=== PATIENT | female | born 1985 | race Caucasian/White ===

== ENCOUNTER 2021-10-17 12:16 | Outpatient (REF) | payer MEDICAID, SELFPAY ==
[2021-10-18 17:02] LABS: COVID-19 RT-PCR UVMMC Result Negative (Negative)
== END 2021-10-17 12:17 | disposition home or self-care (01) ==
LOC: LBO 12:16
PROVIDERS: Nurse Practitioner Family; Visit Provider Nurse Practitioner Family
DX: Z20.822 Contact with and (suspected) exposure to COVID-19 (principal)
CPT/HCPCS: U0003

== ENCOUNTER 2021-11-14 01:52 | Outpatient (CLI) | payer MEDICAID, SELFPAY ==
[2021-11-14 10:20] VITALS: BP 126/88; PULSE 72; RESP 20; TEMP 36.2; O2SAT 98
[2021-11-14] MEDS: Normal Saline 250 ML 30 ML IV (11:00)
[2021-11-14 12:15] VITALS: BP 117/81; PULSE 74; RESP 16; TEMP 36.4; O2SAT 96
--- NOTE | 2021-11-14 16:08 | NUR.NOTE ---
Pt presented for IV treatment of Sotrovimab following COVID+ test. Care provided by State directed resident assistant team during infusions. Nursing Note:
== END 2021-11-14 01:53 | disposition home or self-care (01) ==
PROVIDERS: Visit Provider Family Medicine
DX: U07.1 COVID-19 (principal)
CPT/HCPCS: 96365; Q0047

== ENCOUNTER 2021-12-25 21:03 | Outpatient (CLI) | payer MEDICAID, SELFPAY ==
[2021-12-25 15:25] LABS: ALT 31 U/L (14-59); AST 17 U/L (15-37); Triglyceride 208 mg/dL (<150)
== END 2021-12-25 21:04 | disposition home or self-care (01) ==
LOC: LBO 21:08
PROVIDERS: Visit Provider Dermatology
DX: Z79.899 Other long term (current) drug therapy (principal)
CPT/HCPCS: 36415; 84450; 84460; 84478

== ENCOUNTER 2022-02-12 13:40 | Outpatient (REF) | payer MEDICAID, SELFPAY ==
[2022-02-13 00:38] LABS: COVID-19 RT-PCR UVMMC Result Negative (Negative)
== END 2022-02-12 13:41 | disposition home or self-care (01) ==
LOC: LBN 13:40
PROVIDERS: Visit Provider Family Medicine
DX: Z20.822 Contact with and (suspected) exposure to COVID-19 (principal)
CPT/HCPCS: U0003

== ENCOUNTER 2022-03-01 03:09 | Outpatient (CLI) | payer MEDICAID, SELFPAY ==
[2022-03-01 10:26] LABS: HCT 37.8 % (36.0-46.0); HGB 12.4 g/dL (11.2-15.7); MCH 28.7 pg (27.0-33.0); MCHC 32.8 % (32.0-36.0); MCV 88 fL (80-95); MPV 9.5 fL (8.0-11.0); Platelet Count 254 10^3/uL (130-400); RBC 4.32 10^6/uL (3.93-5.22); RDW 12.6 % (11.7-14.6); RDW-SD 40.1 fL; WBC 8.23 10^3/uL (4.4-10.8)
[2022-03-01 11:29] LABS: ALT 25 U/L (14-59); AST 16 U/L (15-37); Albumin 4.1 g/dL (3.4-5.0); Alkaline Phosphatase 79 U/L (46-116); Anion Gap 9.4 mmol/L (3-11); BUN 20 mg/dL (7-18); Bilirubin, Total 0.4 mg/dL (0.2-1.0); CO2 28.6 mmol/L (21.0-32.0); Calcium 8.7 mg/dL (8.5-10.1); Calculated LDL 146 mg/dL (<100); Chloride 105 mmol/L (98-107); Cholesterol 210 mg/dL (<200); Glucose 87 mg/dL (74-106); HDL Cholesterol 39 mg/dL (40-60); Potassium 3.9 mmol/L (3.5-5.1); Sodium 143 mmol/L (136-145); TSH (W/Ref FT4) 2.21 uIU/mL (0.36-3.74); Total Protein 7.4 g/dL (6.4-8.2); Triglyceride 128 mg/dL (<150)
== END 2022-03-01 03:10 | disposition home or self-care (01) ==
LOC: LBO 03:09
PROVIDERS: Family Medicine
DX: R00.2 Palpitations (principal); R42 Dizziness and giddiness; E78.79 Other disorders of bile acid and cholesterol metabolism
CPT/HCPCS: 36415; 80053; 80061; 85027; 84443

== ENCOUNTER 2022-07-16 20:25 | Emergency (ER) | payer MEDICAID, SELFPAY ==
--- NOTE | 2022-07-16 20:30 | DI.RAD_ITS ---
Exam(s) XR KNEE LT 3V AP,LAT,AURORA EXAM: XR KNEE LT 3V AP,LAT,A[place]A CLINICAL HISTORY: fall with twisting on knee. TECHNIQUE: 2D digital imaging was performed. COMPARISON: CR RIGHT KNEE 3 VIEWS from 08/24/2013 FINDINGS: 3 views h no evidence of fracture. Small amount of increased joint fluid bone density normal. No osseous le sions. No degenerative changes. IMPRESSION: No significant osseous findings. Small amount of increased joint fluid noted. Appropriate follow-up recommended. DATA REPOSITORY: RADIATION DOSE DELIVERED:
--- NOTE | 2022-07-16 21:35 | DI.VRAD_ITS ---
PROCEDURE INFORMATION: Exam: XR Left Knee Exam date and time: 07/16/2022 9:00 PM Age: 37 years old Clinical indication: Injury or trauma; Sprain or strain; Patella or knee; Injury date: 07/16/22; Injury details: Fall with twisting of left knee TECHNIQUE: Imaging protocol: Radiologic exam of the Left knee. Views: 3 views. COMPARISON: None. FINDINGS: Bones/joints: There are no acute displaced fractures or subluxations. The joint spaces are maintained without degenerative changes. Osseous mineralization is normal. There are no inflammatory osseous erosive changes. Cannot exclude tiny suprapatellar effusion. Soft tissues: Normal. IMPRESSION: No acute displaced fractures or subluxations identified. Dictated and Authenticated by: Francesco Tena MD. Ordering:MICHEL Provider Temporary
[2022-07-16 21:52] VITALS: BP 138/101; PULSE 114; RESP 17; TEMP 36.7; O2SAT 98
[2022-07-16 22:37] VITALS: BP 133/97; PULSE 83; RESP 16; O2SAT 97
--- NOTE | 2022-07-16 22:45 | RT.EKG_ITS ---
APPROVED REPORT Exam: Resting ECG Reason for Exam: fatigue feeling unwell Patient Location: E HR:81 bpm ECG Measurements Heart Rate 81 AXIS MS 128 P 34 QRSd 84 QRS 48 QT 370 T 29 QTc 429 Conclusion Sinus rhythm...normal P axis, V-rate 60- 99 sinus rhythm, normal axis, normal intervals, non ischemic
--- NOTE | 2022-07-16 22:57 | ED.GENADUL_ITS ---
Discharge Plan Disposition Patient Disposition: HOME Condition: Stable Discharge Details Clinical Impression: Injury of knee, Foot laceration Primary Care Provider: Hayley Mckee ED Provider: Kieran Washington Home Meds and New Rx's Prescriptions: New cephalexin 500 mg capsule 500 mg PO QID 5 Days Qty: 20 0RF Discharge Instructions Instructions: Knee Pain (ED) Stand Alone Forms: Work Release Medical Decision Making 37-year-old female presents for mechanical fall on a wet baseball mayda, slipped and twisted left knee, ambulatory at scene, pain worsened when she got home, still ambulatory however hurts to bend knee completely, partial flexion intact full extension intact, soft compartments no effusion no laxity, warm well perfused sensate extremity, while waiting for evaluation patient became lightheaded, she was moved to room 10 and placed in supine position feeling better, no chest pain or shortness of breath. Had a similar episode of lightheadedness while driving a couple months ago. Had to go to the emergency department for evaluation. Negative work-up at that time. Also patient endorses laceration to the dorsum of her left foot that has been present for the last week, feels this is becoming more painful and red, does have some slight induration and erythema surrounding healing superficial laceration, no fluctua nce or purulence. Consider early cellulitis versus healing wound. Knee injury likely contusion versus sprain versus strain muscles consider partial ligamentous tear versus meniscal injury. No evidence of dislocation or fracture. Will treat with Toradol, will start on Keflex, will immobilize in knee immobilizer and provide crutches. Will perform EKG. Likely home with close follow-up 23: 19 patient resting comfortably hemodynamically stable. EKG nonischemic. No evidence of arrhythmia. HPI General Date/Time Provider Initiated Documentation: 07/16/22 20:30 . HPI Narrative: 37-year-old female presents after mechanical slip and fall on a wet baseball mayda, twisted her left knee, was ambulatory at the scene however when she got home the knee became more painful she is still ambulatory however it hurts to walk and bend the knee, also this week sustained a superficial laceration to her left foot that has become more warm and tender to the touch, while in the lobby waiting for treatment patient also became lightheaded felt unwell. Denies chest pain or shortness of breath Related Data Home Medications Medication Instructions Recorded Confirmed cephalexin 500 mg capsule 500 mg PO QID 5 days #20 caps 07/16/22 Previous Rx's Medication Instructions Recorded cephalexin 500 mg capsule 500 mg PO QID 5 days #20 caps 07/16/22 Allergies Allergy/AdvReac Type Severity Reaction Status Date / Time nitrofurantoin Allergy Unverified 12/05/20 08:54 [From Macrobid] General Stated Complaint: Orthopedic LAMAR: 4 Review of Systems Narrative: Review of Systems Constitutional: Lightheaded Eyes: negative ENT: negative Cardiovascular: negative Respiratory: negative Gastrointestinal: negative : negative Musculoskeletal: Knee pain Skin: Foot laceration Neurologic: negative Psych: negative PFSH All Active Problems (Updated 07/16/22 @ 23:21 by Kieran Washington MD) Injury of knee (Acute) Foot laceration (Acute) Social History Smoking/Tobacco Use Status: Never Smoking risk assessment performed?: Yes Alcohol Intake: current Alcohol Intake frequency: a few times a week Drug use: Never Substance use type: does not use Do you feel safe at home: Yes Do you feel safe in your relationship?: Yes Exam Narrative Exam Narrative: Physical Examination General: alert, awake, cooperative, resting comfortably, no acute distress HEENT: normocephalic, atraumatic; PERRL, EOM intact, conjunctiva normal; no nasal discharge; moist mucous membranes, oral and pharyngeal mucosa normal, tolerating secretions Neck: supple, trachea midline; full ROM Chest: normal to inspection Respiratory: normal respiratory effort, speaking in full sentences, clear to auscultation, no wheezing, rales or rhonchi Cardiac: regular rate, regular rhythm, S1S2 intact, no murmurs rubs or gallops GI: abdomen soft, non-tender, non-distended; no palpable mass or hepatosplenomegaly Skin: Superficial healing subacute laceration to dorsum of left foot, scab in place, some surrounding induration and warmth no lymphangitic streaking no fluctuance appreciated no purulence appreciated Neuro: AAOx3, normal speech, moving all extremities Extremities: Patient able to partially flex knee and is able to fully extend left knee, no effusion, no laxity, warm well perfused, soft compartments ambulatory Psych: Appropriate mood and affect Course Vital Signs Vital signs: Vital Signs Temperature 36.7 C 07/16/22 21:52 Pulse 114 H 07/16/22 21:52 Respiratory Rate 17 09/20/22 21:52 Blood Pressure 138/101 H 07/16/22 21:52 Pulse Oximetry 98 07/16/22 21:52 Temperature 36.7 C 07/16/22 21:52 Temperature Source Temporal Artery Scan 07/16/22 21:52 Pulse 83 07/16/22 22:37 Respiratory Rate 16 07/16/22 22:37 Respiratory Effort 07/16/22 21:59 Blood Pressure 133/97 H 07/16/22 22:37 Pulse Oximetry 97 07/16/22 22:37 Oxygen Delivery Method Room Air 07/16/22 21:52 Oxygen Flow Rate 0 07/16/22 21:52 Comment 07/16/22 22:37
[2022-07-16 23:31] VITALS: BP 120/77; PULSE 94; RESP 16; O2SAT 99
[2022-07-16] MEDS: Cephalexin 500 MG CAP PO (23:31)
[2022-07-16] MEDS: Ketorolac 15 MG/ML VIAL IM (23:31)
== END 2022-07-16 23:47 | disposition home or self-care (01) ==
PROVIDERS: Emergency Provider Emergency Medicine; PCP Family Medicine
DX: S91.312A Laceration without foreign body, left foot, initial encounter (principal); S89.92XA Unspecified injury of left lower leg, initial encounter; W01.0XXA Fall on same level from slipping, tripping and stumbling without subsequent striking against object, initial encounter; X50.1XXA Overexertion from prolonged static or awkward postures, initial encounter; Y92.320 Baseball field as the place of occurrence of the external cause
CPT/HCPCS: 73562; 93005; 96372; 99284; 93010; J1885

== ENCOUNTER 2022-08-16 12:52 | Outpatient (REF) | payer MEDICAID, SELFPAY | END 2022-08-16 12:53 | disposition home or self-care (01) | LOC: LBN 12:52 | PROVIDERS: PCP Family Medicine; Visit Provider Obstetrics & Gynecology | DX: R30.0 Dysuria (principal) | CPT/HCPCS: 87077; 87086; 87186 ==

== ENCOUNTER 2022-09-27 22:33 | Outpatient (REF) | payer MEDICAID, SELFPAY ==
[2022-09-30 12:27] LABS: Chlamydia Result Negative (Negative); GC Result Negative (Negative)
== END 2022-09-27 22:34 | disposition home or self-care (01) ==
LOC: LBN 22:33
PROVIDERS: PCP Family Medicine; Visit Provider Physician Assistant
DX: J02.9 Acute pharyngitis, unspecified (principal); Z11.3 Encounter for screening for infections with a predominantly sexual mode of transmission
CPT/HCPCS: 87491; 87591; 87070

== ENCOUNTER 2022-10-07 03:11 | Outpatient (CLI) | payer MEDICAID, SELFPAY ==
[2022-10-07 08:50] LABS: ALT 24 U/L (14-59); AST 18 U/L (15-37); Albumin 4.1 g/dL (3.4-5.0); Alkaline Phosphatase 68 U/L (46-116); Anion Gap 8.3 mmol/L (3-11); BUN 15 mg/dL (7-18); Bilirubin, Total 0.5 mg/dL (0.2-1.0); CO2 27.7 mmol/L (21.0-32.0); CREATININE 1.1 mg/dL (0.55-1.02); Chloride 103 mmol/L (98-107); Estimated GFR 66.78 (mL/min/1.73m2); Glucose 100 mg/dL (74-106); Potassium 3.7 mmol/L (3.5-5.1); Sodium 139 mmol/L (136-145); TSH (W/Ref FT4) 3.46 uIU/mL (0.36-3.74); Total Protein 7.9 g/dL (6.4-8.2)
== END 2022-10-07 03:12 | disposition home or self-care (01) ==
PROVIDERS: PCP Family Medicine; Visit Provider Registered Nurse Infection Control
DX: R63.5 Abnormal weight gain (principal); Z13.6 Encounter for screening for cardiovascular disorders
CPT/HCPCS: 36415; 80053; 84443

== ENCOUNTER 2022-12-02 08:22 | Outpatient (CLI) | payer MEDICAID, SELFPAY ==
[2022-12-02 08:35] LABS: Source Nasal/Nares
[2022-12-02 09:20] LABS: COVID-19 PCR Negative (Negative)
== END 2022-12-02 08:23 | disposition home or self-care (01) ==
LOC: LBO 08:22
PROVIDERS: PCP Family Medicine; Visit Provider Obstetrics & Gynecology
DX: Z20.822 Contact with and (suspected) exposure to COVID-19 (principal)
CPT/HCPCS: 87635

== ENCOUNTER 2022-12-16 19:42 | Emergency (ER) | payer MEDICAID, SELFPAY ==
[2022-12-16 19:47] VITALS: BP 129/85; PULSE 89; RESP 22; TEMP 36.4; O2SAT 96
--- NOTE | 2022-12-16 19:59 | ED.GENADUL_ITS ---
Discharge Plan Disposition Patient Disposition: Home Discharge Details Chief Complaint: Laceration Clinical Impression: Abrasion of finger of left hand Primary Care Provider: Hayley Mckee ED Provider: John Young Home Meds and New Rx's Prescriptions: No Action fluoxetine 40 mg capsule 40 mg PO DAILY Trulicity 1.5 mg/0.5 mL pen injector SUBCUT Discharge Instructions Instructions: Abrasion (ED) Additional Instructions: Tissue adhesive will slowly wear off over approximately 5 days time. May gently wash with soap and water and pat dry. Your tetanus was boosted today. Return for any acute concern. Medical Decision Making 37-year-old female suffered abrasions to her left ring finger while using a mop that broke at home and the sharp edges abraded her. Her tetanus is out of date. The wound was cleansed and tissue adhesive placed. She is stable and approp riate for discharge after updated tetanus booster given. HPI General Mode of arrival: ambulatory . Date/Time Provider Initiated Documentation: 12/16/22 19:44 . Limitations to Documentation: no limitations . Information obtained by: patient . History of Present Illness 37 year old F presents to the emergency department with the chief complaint of Left ring finger abrasion, described as mild, and is localized to the left and upper extremity. Patient reports no radiation. Patient started experiencing this minute(s) and it has been constant. No relieving factors improve symptom(s), No exacerbating factors reported . Patient notes no other symptoms.. Related Data Home Medications Medication Instructions Recorded Confirmed fluoxetine 40 mg capsule 40 mg PO DAILY 12/06/22 12/16/22 dulaglutide 1.5 mg/0.5 mL mg subcut 12/16/22 12/16/22 subcutaneous pen injector (Trulicity) Allergies Allergy/AdvReac Type Severity Reaction Status Date / Time nitrofurantoin Allergy Unverified 12/16/22 19:51 [From Macrobid] General Stated Complaint: Laceration LAMAR: 4 Review of Systems Narrative: Tetanus out of date. No other injury. PFSH All Active Problems (Updated 12/16/22 @ 20:01 by John Young MD) Abrasion of finger of left hand (Acute) Social History Smoking/Tobacco Use Status: Never Smoking risk assessment performed?: Yes Alcohol Intake: current Alcohol Intake frequency: a few times a week Drug use: Never Substance use type: does not use Do you feel safe at home: Yes Do you feel safe in your relationship?: Yes Exam Narrative Exam Narrative: GEN: awake, alert, oriented 3. Pleasant, well groomed, interactive. HEAD: Normocephalic, atraumatic EXT: Full ROM, no edema, the left ring finger has 3 superficial abrasions. Normal capillary refill, normal motor function. Neuro: Grossly normal neurologic exam, conversant, interactive. Psych: Speech fluent, thoughts congruent, affect normal Course Vital Signs Vital signs: Vital Signs Temperature 36.4 C L 12/16/22 19:47 Pulse 89 12/16/22 19:47 Respiratory Rate 22 12/16/22 19:47 Blood Pressure 129/85 12/16/22 19:47 Pulse Oximetry 96 12/16/22 19:47 Temperature 36.4 C L 12/16/22 19:47 Temperature Source Temporal Artery Scan 12/16/22 19:47 Pulse 89 12/16/22 19:47 Respiratory Rate 22 12/16/22 19:47 Blood Pressure 129/85 12/16/22 19:47 Blood Pressure Position Sitting 12/16/22 19:47 Pulse Oximetry 96 12/16/22 19:47 Oxygen Delivery Method Room Air 12/16/22 19:47 Oxygen Flow Rate 0 12/16/22 19:47
[2022-12-16] MEDS: Tetanus & Diphtheria Tox,ADULT 0.5 ML VIAL IM (20:03)
== END 2022-12-16 20:10 | disposition home or self-care (01) ==
LOC: ER 20:33
PROVIDERS: Emergency Provider Emergency Medicine; PCP Family Medicine
DX: S60.415A Abrasion of left ring finger, initial encounter (principal); W26.8XXA Contact with other sharp object(s), not elsewhere classified, initial encounter; Y92.009 Unspecified place in unspecified non-institutional (private) residence as the place of occurrence of the external cause; Z23 Encounter for immunization
CPT/HCPCS: 90471; 99282

== ENCOUNTER 2023-01-31 14:53 | Outpatient (CLI) | payer MEDICAID, SELFPAY ==
--- OUTSIDE RECORDS SUMMARY | 2023-01-31 14:58 | XMS_ITS | Continuity of Care Document ---
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 Name Role Phone Markswapna Dede Primary Care Physician Encounter [facility] FIN NBR [id number] Date(s): 11/09/22 - 11/10/[address] [address]- Encounter Diagnosis Pleuritic chest pain(Discharge Diagnosis) - 11/10/22 Cholelithiasis(Discharge Diagnosis) - 11/10/22 Discharge Disposition: Home f/u Internal Provider Attending Physician: Bahman Carney DO Admitting Physician: Bahman Carney DO Referring Physician: Bahman Carney DO Allergies, Adverse Reactions, Alerts Substance Reaction Severity Status Macrobid Moderate Active Assessment and Plan Future Scheduled Tests Laboratory* Comprehensive Metabolic Panel 09/26/22 * TSH w/ Rflx to Free T4 09/26/22 Immunizations Given and Recorded Vaccine Date Status Refusal Reason BCG 1 05/16/21 Recorded BCG 2 05/16/20 Recorded influenza virus vaccine, inactivated 3 09/17/16 Re corded influenza virus vaccine, inactivated 4 07/26/15 Re corded tetanus/diphth/pertuss (Tdap) adult/adol 5 05/19/15 Recorded 1Result Comment: Unit: Unknown Production Supervisor: [employer] 2Result Comment: Unit: Unknown Production Supervisor: Sanofi Pasteur 3Result Comment: Unit: Unknown Production Supervisor: GlaxoSmithKline 4Result Comment: Production Supervisor: GlaxoSmithKline 5Result Comment: Production Supervisor: Sanofi Pasteur Medications Accutane 0 Refill(s) Start Date: 09/25/22 Status: Ordered FLUoxetine 20 mg oral tablet 40 mg = 2 tab, Oral, Daily, # 180 tab, 3 Refill(s), Pharmacy: [id number] Start Date: 09/26/22 Stop Date: 09/21/23 Status: Ordered ibuprofen 800 mg oral tablet TID, 1 Unknown, 0 Refill(s) Start Date: 09/25/22 Status: Ordered Mirena 0 Refill(s) Start Date: 09/25/22 Status: Ordered Trulicity Pen 1.5 mg/0.5 mL subcutaneous solution 1.5 mg =, Subcutaneous, every week, rotate injection sites, # 4 EA, 3 Refill(s), Pharmacy: [id number] Start Date: 10/17/22 Stop Date: 02/14/23 Status: Ordered Mental Status 11/09/22 Eye Opening Response Jesus Spontaneous ly Best Verbal Response [place] Oriented Best Motor Response Jesus Obeys comman ds Jesus Coma Score 15 Problem List Condition Confirmation Course Effective Dates Status H ealth Status Informant Acne Confirmed Active Acute esophagitis Confirmed Active Anxiety Confirmed Active Chronic UTI Confirmed Active COVID Confirmed 11/08/21 Active Diarrhea Confirmed Active Disorder of stomach Confirmed Active Epigastric pain Confirmed Active Helicobacter-associa beatrice gastritis Confirmed Active Incomplete emptying of bladder Confirmed Active Intrauterine contraceptive device in situ Confirmed Active Irritable bowel syndrome with diarrhea Confirmed Active Loss of appetite Confirmed Active Major depression, single episode Confirmed Active Mixed anxiety and depressive disorder Confirmed Active Nausea Confirmed Active Reactive depression (situational) Confirmed Active Recurrent urinary tract infection Confirmed Active Renal agenesis Confirmed Active Retention of urine Confirmed Active Transitory mood disturbance Confirmed Active Urinary tract infectious disease Confirmed Active Weight loss Confirmed Active Procedures Procedure Date Related Diagnosis Body Site Status EGD (esophagogastroduodenosc opy) gastric outlet reduction 09/01/13 Complet ed Colonoscopy 1 Completed History of surgery 2 Comp leted 1benign findings date 06/2019 2cyst removal on hand Unknown Date Results Laboratory List Name Date BNP 11/09/22 CBC w/ Diff 11/09/22 Comprehensive Metabolic Panel 11/09/22 D-Dimer 11/09/22 Lipase Level 11/09/22 Magnesium Level 11/09/22 Test Serum Qual 11/09/22 TSH w/ Rflx to Free T4 11/09/22 Troponin-I 11/09/22 Automated Diff 11/09/22 SARS-CoV-2 (COVID-19)/Flu/RSV (GeneXpert ) 11/09/22 Most recent to oldest [Reference Range]: 1 WBC [4.8-10.8 K/mcL] 8.8 K/mcL (11/09/22 PM) RBC [4.20-6.10 Million/mcL] 4.49 Million /mcL (11/09/22 PM) Neutro Auto [42.2-75.2 %] 58.4 % (11/09/22 PM) Lymph Auto [20.5-51.1 %] 33.0 % (11/09/22 PM) Ocean Auto [1.7-9.3 %] 7.1 % (11/09/22 PM) Basophil Auto [0.0-0.8 %] 0.3 % (11/09/22 PM) BUN [8-26 mg/dL] 15 mg/dL (11/09/22 PM) Glucose Level [74-106 mg/dL] 98 mg/dL (11/09/22 PM) Potassium Level [3.5-5.1 mmol/L] 3.7 mmo l/L (11/09/22 PM) Baso Absolute [0.0-0.2 K/mcL] 0.0 K/mcL (11/09/22 PM) MCV [80.0-99.0 fL] 86.6 fL (11/09/22 PM) AST [15-41 IntlUnit/L] 20 IntlUnit/L (11/09/22 PM) ALT [14-54 IntlUnit/L] 16 IntlUnit/L (11/09/22 PM) MCHC [32.0-36.0 g/dL] 33.9 g/dL (11/09/22 PM) Osmolality [275-295 mOsm/kg] 271 mOsm/kg *LOW* (11/09/22 PM) Troponin-I [<=0.05 ng/mL] 0.01 ng/mL (11/09/22 PM) Sodium Level [134-143 mmol/L] 135 mmol/L (11/09/22 PM) Lymph Absolute [1.2-3.4 K/mcL] 2.9 K/mcL (11/09/22 PM) Hct [37.0-52.0 %] 38.9 % (11/09/22 PM) Lipase Level [18-51 unit/L] 42 unit/L (11/09/22 PM) Calcium Level [8.9-10.3 mg/dL] 9.2 mg/dL (11/09/22: PM) Ocean Absolute [0.1-0.6 K/mcL] 0.6 K/mcL (11/09/22 PM) Albumin Level [3.5-5.0 g/dL] 4.1 g/dL (11/09/22 PM) Protein Total [6.5-8.1 g/dL] 7.4 g/dL (11/09/22 PM) MCH [27.0-31.0 pg] 29.4 pg (11/09/22 PM) Magnesium Level [1.8-2.5 mg/dL] 1.8 mg/d L (11/09/22 PM) Neutro Absolute [1.4-6.5 K/mcL] 5.1 K/mc L (11/09/22: PM) Bilirubin Total [0.2-1.2 mg/dL] 0.5 mg/d L (11/09/22 PM) Hgb [12.0-18.0 g/dL] 13.2 g/dL (11/09/22 PM) Alk Phos [38-130 IntlUnit/L] 51 IntlUnit /L (11/09/22: PM) MPV [7.4-10.4 fL] 9.6 fL (11/09/22:22 PM) Platelets [130-400 K/mcL] 285 K/mcL (11/09/22:22 PM) CO2 [22-32 mmol/L] 24 mmol/L (11/09/22:22 PM) Eos Absolute [0.0-0.2 K/mcL] 0.1 K/mcL (11/09/22: PM) TSH [0.45-5.33 mIntlUnit/mL] 5.02 mIntlU nit/mL (1/14/23 11:22 PM) eGFR Non-AA 86 *NA* (11/09/22 11:22 PM) eGFR AA 86 *NA* (11/09/22: PM) BNP [<=100 pg/mL] 24 pg/mL (11/09/22 11:22 PM) Chloride Level [98-111 mmol/L] 103 mmol/ L (11/09/22 11:22 PM) RDW-CV [11.5-14.5 %] 12.6 % (11/09/22:22 PM) A/G Ratio 1.2 *NA* (11/09/22:22 PM) BUN/Creat Ratio [8.0-20.0] 16.9 (11/09/22: PM) Globulin 3.3 *NA* (11/09/22: PM) hCG Qual Serum [Negative] Negative (11/09/22 11:22 PM) Imm Gran Absolute 0.03 *NA* (11/09/22 PM) Imm Gran Auto [0.0-0.5 %] 0.3 % (11/09/22:22 PM) Creatinine Level [0.44-1.00 mg/dL] 0.89 mg/dL (11/09/22 11:22 PM) Employed in healthcare? No *NA* (11/09/22 11:00 PM) Symptomatic as defined by CDC? No *NA* (11/09/22 11:00 PM) Hospitalized due to COVID-19? No *NA* (11/09/22 11:00 PM) In ICU? No *NA* (11/09/22 11:00 PM) Group care resident? No *NA* (11/09/22 11:00 PM) status? Not *NA* (11/09/22 11:00 PM) SARS-CoV-2(Covid19)PCR(GXpert COVFLURSV) [Negative] Negative (11/09/22 11:00 PM) Flu A (GXpert COVFLURSV) [Negative] Nega tive (11/09/22 11:00 PM) RSV (GXpert COVFLURSV) [Negative] Negati ve (11/09/22 11:00 PM) Flu B (GXpert COVFLURSV) [Negative] Nega tive (11/09/22 11:00 PM) Anion Gap [3.0-12.0] 8.0 (11/09/22 11:22 PM) D Dimer, (Quant.) [<=500 ng/mL] 240 ng/m L (11/09/22 11:22 PM) Eos, Auto [0.00-3.00 %] 0.90 % (11/09/22 11:22 PM) Vital Signs Most recent to oldest [Reference Range]: 1 2 3 Temperature Tympanic [36.6-37.9 Deg C] 37 Deg C (11/09/22 10:29 PM) Peripheral Pulse Rate [60-100 bpm] 59 bpm *LOW* (11/10/22 12:35 AM) 59 bpm *LOW* (11/10/22 12:09 AM) 70 bpm (11/09/22 11:17 PM) Heart Rate Monitored [60-100 bpm] 60 bpm (11/10/22 12:09 AM) 76 bpm (11/09/22 11:17 PM) Respiratory Rate [12-24 br/min] 12 br/min (11/10/22 12:35 AM) 16 br/min (11/10/22 12:09 AM) 26 br/min *HI* (11/09/22 11:17 PM) Blood Pressure [90-140/60-90 mmHg] 115/86mmHg (11/10/22 12:35 AM) 103/57mmHg (11/10/22 12:09 AM) 118/80mmHg (11/09/22 11:17 PM) Mean Arterial Pressure, Cuff [65-140 mmHg] 96 mmHg (11/10/22 12:35 AM) 72 mmHg (11/10/22 12:09 AM) Mean Arterial Pressure Cuff 69 mmHg (11/10/22 12:09 AM) Weight 102.00 kg (11/09/22 10:29 PM) Weight Dosing 102.00 kg (11/09/22 10:59 PM) Height 167.000 cm (11/09/22 10:29 PM) Height/Length Dosing 167.000 cm (11/09/22 10:59 PM) Body Mass Index 37.000 kg/m2 (11/09/22 10:29 PM) Social History Social History Type Response Tobacco Never tobacco user T obacco Use:. Sex Hospital Discharge Instructions Patient Education 11/10/2022 02:04:33 Cholelithiasis Cholelithiasis Cholelithiasis is a disease in which gallstones form in the gallbladder. The gallbladder is an organ that stores bile. Bile is a fluid that helps to digest fats. Gallstones begin as small crystals and can slowly grow into stones. They may cause no symptoms until they block the gallbladder duct, or cystic duct, when the gallbladder tightens (contracts) after food is eaten. This can cause pain and is known as a gallbladder attack, or biliary colic. There are two main types of gallstones: ??? Cholesterol stones. These are the most common type of gallstone. These stones are made of hardened cholesterol and are usually yellow-green in color. Cholesterol is a fat-like substance that is made in the liver. ??? Pigment stones. These are dark in color and are made of a red-yellow substance, called bilirubin,that forms when hemoglobin from red blood cells breaks down. What are the causes? This condition may be caused by an imbalance in the different parts that make bile. This can happenif the bile: ??? Has too much bilirubin. This can happen in certain blood diseases, such as sickle cell anemia. ??? Has too much cholesterol. ??? Does not have enough bile salts. These salts help the body absorb and digest fats. In some cases, this condition can also be caused by the gallbladder not emptying completely or often enough. This is common during . What increases the risk? The following factors may make you more likely to develop this condition: ??? Being female. ??? Having multiple pregnancies. Health care providers sometimes advise removing diseased gallbladders before future pregnancies. ??? Eating a diet that is heavy in fried foods, fat, and refined carbohydrates, such as white breadand white rice. ??? Being obese. ??? Being older than age 40. ??? Using medicines that contain female hormones (estrogen) for a long time. ??? Losing weight quickly. ??? Having a family history of gallstones. ??? Having certain medical problems, such as: ??? Diabetes mellitus. ??? Cystic fibrosis. ??? Crohn's disease. ??? Cirrhosis or other long-term (chronic) liver disease. ??? Certain blood diseases, such as sickle cell anemia or leukemia. What are the signs or symptoms? In many cases, having gallstones causes no symptoms. When you have gallstones but do not have symptoms, you have silent gallstones. If a gallstone blocks your bile duct, it can cause a gallbladder attack. The main symptom of a gallbladder attack is sudden pain in the upper right part of the abdomen. The pain: ??? Usually comes at night or after eating. ??? Can last for one hour or more. ??? Can spread to your right shoulder, back, or chest. ??? Can feel like indigestion. This is discomfort, burning, or fullness in your upper abdomen. If the bile duct is blocked for more than a few hours, it can cause an infection or inflammation ofyour gallbladder (cholecystitis), liver, or pancreas. This can cause: ??? Nausea or vomiting. ??? Bloating. ??? Pain in your abdomen that lasts for 5 hours or longer. ??? Tenderness in your upper abdomen, often in the upper right section and under your rib cage. ??? Fever or chills. ??? Skin or the white parts of your eyes turning yellow (jaundice). This usually happens when a stone has blocked bile from passing through the common bile duct. ??? Dark urine or light-colored stools. How is this diagnosed? This condition may be diagnosed based on: ??? A physical exam. ??? Your medical history. ??? Ultrasound. ??? CT scan. ??? MRI. You may also have other tests, including: ??? Blood tests to check for signs of an infection or inflammation. ??? Cholescintigraphy, or HIDA scan. This is a scan of your gallbladder and bile ducts (biliary system) using non-harmful radioactive material and special cameras that can see the radioactive material. ??? Endoscopic retrograde cholangiopancreatogram. This involves inserting a small tube with a camera on the end (endoscope) through your mouth to look at bile ducts and check for blockages. How is this treated? Treatment for this condition depends on the severity of the condition. Silent gallstones do not need treatment. Treatment may be needed if a blockage causes a gallbladder attack or other symptoms. Treatment may include: ??? Home care, if symptoms are not severe. ??? During a simple gallbladder attack, stop eating and drinking for 12???24 hours (except for water and clear liquids). This helps to cool down your gallbladder. After 1 or 2 days, you can start to eat a diet of simple or clear foods, such as broths and crackers. ??? You may also need medicines for pain or nausea or both. ??? If you have cholecystitis and an infection, you will need antibiotics. ??? A hospital stay, if needed for pain control or for cholecystitis with severe infection. ??? Cholecystectomy, or surgery to remove your gallbladder. This is the most common treatment if all other treatments have not worked. ??? Medicines to break up gallstones. These are most effective at treating small gallstones. Medicines may be used for up to 6???12 months. ??? Endoscopic retrograde cholangiopancreatogram. A small basket can be attached to the endoscope and used to capture and remove gallstones, mainly those that are in the common bile duct. Follow these instructions at home: Medicines ??? Take [id number]-hqlomxe and prescription medicines only as told by your health care provider. ??? If you were prescribed an antibiotic medicine, take it as told by your health care provider. Donot stop taking the antibiotic even if you start to feel better. ??? Ask your health care provider if the medicine prescribed to you requires you to avoid driving or using machinery. Eating and drinking ??? Drink enough fluid to keep your urine pale yellow. This is important during a gallbladder attack. Water and clear liquids are preferred. ??? Follow a healthy diet. This includes: ??? Reducing fatty foods, such as fried food and foods high in cholesterol. ??? Reducing refined carbohydrates, such as white bread and white rice. ??? Eating more fiber. Aim for foods such as almonds, fruit, and beans. Alcohol use ??? If you drink alcohol: ??? Limit how much you use to: ??? 0???1 drink a day for non women. ??? 0???2 drinks a day for men. ??? Be aware of how much alcohol is in your drink. In the [place] one drink equals one 12 oz bottle of beer (355 mL), one 5 oz glass of wine (148 mL), or one 1?? oz glass of hard liquor (44 mL). General instructions ??? Do not use any products that contain nicotine or tobacco, such as cigarettes, e-cigarettes, andchewing tobacco. If you need help quitting, ask your health care provider. ??? Maintain a healthy weight. ??? Keep all follow-up visits as told by your health care provider. These may include consultationswith a surgeon or specialist. This is important. Where to find more information ??? National [place] of Diabetes and Digestive and Kidney Diseases: www.niddk.nih.gov Contact a health care provider if: ??? You think you have had a gallbladder attack. ??? You have been diagnosed with silent gallstones and you develop pain in your abdomen or indigestion. ??? You begin to have attacks more often. ??? You have dark urine or light-colored stools. Get help right away if: ??? You have pain from a gallbladder attack that lasts for more than 2 hours. ??? You have pain in your abdomen that lasts for more than 5 hours or is getting worse. ??? You have a fever or chills. ??? You have nausea and vomiting that do not go away. ??? You develop jaundice. Summary ??? Cholelithiasis is a disease in which gallstones form in the gallbladder. ??? This condition may be caused by an imbalance in the different parts that make bile. This can happen if your bile has too much bilirubin or cholesterol, or does not have enough bile salts. ??? Treatment for gallstones depends on the severity of the condition. Silent gallstones do not need treatment. ??? If gallstones cause a gallbladder attack or other symptoms, treatment usually involves not eating or drinking anything. Treatment may also include pain medicines and antibiotics, and it sometimesincludes a hospital stay. ??? Surgery to remove the gallbladder is common if all other treatments have not worked. This information is not intended to replace advice given to you by your health care provider. Make sure you discuss any questions you have with your health care provider. Document Revised: 09/04/2020 Document Reviewed: 09/04/2020 [employer] Patient Education ?? 2021 [employer]. 11/10/2022 02:04:28 Nonspecific Chest Pain, Adult Nonspecific Chest Pain, Adult Chest pain is an uncomfortable, tight, or painful feeling in the chest. The pain can feel like a crushing, aching, or squeezing pressure. A person can feel a burning or tingling sensation. Chest paincan also be felt in your back, neck, jaw, shoulder, or arm. This pain can be worse when you move, sneeze, or take a deep breath. Chest pain can be caused by a condition that is life-threatening. This must be treated right away. It can also be caused by something that is not life- threatening. If you have chest pain, it can be hard to know the difference, so it is important to get help right away to make sure that you do not have a serious condition. Some life-threatening causes of chest pain include: ??? Heart attack. ??? A tear in the body's main blood vessel (aortic dissection). ??? Inflammation around your heart (pericarditis). ??? A problem in the lungs, such as a blood clot (pulmonary embolism) or a collapsed lung (pneumothorax). Some non life-threatening causes of chest pain include: ??? Heartburn. ??? Anxiety or stress. ??? Damage to the bones, muscles, and cartilage that make up your chest wall. ??? Pneumonia or bronchitis. ??? Shingles infection (varicella-zoster virus). Your chest pain may come and go. It may also be constant. Your health care provider will do tests and other studies to find the cause of your pain. Treatment will depend on the cause of your chest pain. Follow these instructions at home: Medicines ??? Take [id number]-vijkpsb and prescription medicines only as told by your health care provider. ??? If you were prescribed an antibiotic medicine, take it as told by your health care provider. Donot stop taking the antibiotic even if you start to feel better. Activity ??? Avoid any activities that cause chest pain. ??? Do not lift anything that is heavier than 10 lb (4.5 kg), or the limit that you are told, untilyour health care provider says that it is safe. ??? Rest as directed by your health care provider. ??? Return to your normal activities only as told by your health care provider. Ask your health care provider what activities are safe for you. Lifestyle ??? Do not use any products that contain nicotine or tobacco, such as cigarettes, e-cigarettes, andchewing tobacco. If you need help quitting, ask your health care provider. ??? Do not drink alcohol. ??? Make healthy lifestyle changes as recommended. These may include: ??? Getting regular exercise. Ask your health care provider to suggest some exercises that are safefor you. ??? Eating a heart-healthy diet. This includes plenty of fresh fruits and vegetables, whole grains,low-fat (lean) protein, and low-fat dairy products. A dietitian can help you find healthy eating options. ??? Maintaining a healthy weight. ??? Managing any other health conditions you may have, such as high blood pressure (hypertension) or diabetes. ??? Reducing stress, such as with yoga or relaxation techniques. General instructions ??? Pay attention to any changes in your symptoms. ??? It is up to you to get the results of any tests that were done. Ask your health care provider, or the department that is doing the tests, when your results will be ready. ??? Keep all follow-up visits as told by your health care provider. This is important. ??? You may be asked to go for further testing if your chest pain does not go away. Contact a health care provider if: ??? Your chest pain does not go away. ??? You feel depressed. ??? You have a fever. ??? You notice changes in your symptoms or develop new symptoms. Get help right away if: ??? Your chest pain gets worse. ??? You have a cough that gets worse, or you cough up blood. ??? You have severe pain in your abdomen. ??? You faint. ??? You have sudden, unexplained chest discomfort. ??? You have sudden, unexplained discomfort in your arms, back, neck, or jaw. ??? You have shortness of breath at any time. ??? You suddenly start to sweat, or your skin gets clammy. ??? You feel nausea or you vomit. ??? You suddenly feel lightheaded or dizzy. ??? You have severe weakness, or unexplained weakness or fatigue. ??? Your heart begins to beat quickly, or it feels like it is skipping beats. These symptoms may represent a serious problem that is an emergency. Do not wait to see if the symptoms will go away. Get medical help right away. Call your local emergency services (911 in the [place] Do not drive yourself to the hospital. Summary ??? Chest pain can be caused by a condition that is serious and requires urgent treatment. It may also be caused by something that is not life-threatening. ??? Your health care provider may do lab tests and other studies to find the cause of your pain. ??? Follow your health care provider's instructions on taking medicines, making lifestyle changes, and getting emergency treatment if symptoms become worse. ??? Keep all follow-up visits as told by your health care provider. This includes visits for any further testing if your chest pain does not go away. This information is not intended to replace advice given to you by your health care provider. Make sure you discuss any questions you have with your health care provider. Document Revised: 12/27/2021 Document Reviewed: 12/27/2021 [employer] Patient Education ?? 2021 [employer]. Follow Up Care 11/09/2022 22:29:29 With:Dede Soto APRN Address: [address] [place] [address] [address] [place] [address]- When:1 to 2 weeks Comments:You presented the emergency department??with lower chest discomfort, epigastric discomfort, and??right upper quadrant??discomfort.?? Bedside ultrasound demonstrated multiple stones within the gallbladder without evidence of gallbladder infection.?? Additionally, we felt that??there was an element of gastritis or GERD, but she did not have any response to GI cocktail.?? Your chest discomfort is pleuritic in nature??(worse with deep breathing), however you have no evidence of pneumonia, pneumothorax,??aortic pathology or pulmonary embolism.?? Your screening laboratory work-up was completely normal. ??No objective evidence of heart attack.?? I recommend you follow-up with Dede Soto within thenext 2 weeks??for continuity of care. Emergency department Discharge instructions * Bahman Carney DO: PERFORM Event Display: ED Discharge Information Authored Date: [id number] FEDERICO NIETO :1985 Age:37 years Sex:Female Visit Date:11/09/2022 Primary Care Physician: Dede Soto APRN Discharge Instructions We would like to thank you for allowing us to assist you with your healthcare needs. The following includes patient education materials and information regarding your injury/illness. Diagnosis from Today's Visit Pleuritic chest pain Cholelithiasis Discharge Vitals Temperature??(Tympanic) 98.6 ??F (37 ??C) Heart Rate??(Peripheral) 59 Respiratory Rate?? 12 Blood Pressure?? 115/86?? Height?? 65.75 in (167.000 cm) Weight?? 224.91 lb (102.00 kg) BMI?? 37.000 Allergies Macrobid What to Do Next You Need to Schedule the Following Appointments Follow Up with??Dede Soto APRN When:??Within 1 to 2 weeks Why: You presented the emergency department??with lower chest discomfort, epigastric discomfort, and??right upper quadrant??discomfort.?? Bedside ultrasound demonstrated multiple stones within the gallbladder without evidence of gallbladder infection.?? Additionally, we felt that??there was an element of gastritis or GERD, but she did not have any response to GI cocktail.?? Your chest discomfort is pleuritic in nature??(worse with deep breathing), however you have no evidence of pneumonia, pneumothorax,??aortic pathology or pulmonary embolism.?? Your screening laboratory work-up was completely normal. ??No objective evidence of heart attack.?? I recommend you follow-up with Dede Soto within the next 2 weeks??for continuity of care. Where: [address] [place] [address] [address] [place] [address]- You were treated today on an emergency basis; it may be kirby to contact your primary care provider to notify them of your visit today. You may have been referred to your regular doctor or a specialist, please follow up as instructed. If your condition worsens or you can't get in to see the doctor, contact the Emergency Department. Medications What How Much When Instructions Next Dose Unchanged dulaglutide (Trulicity Pen 1.5 mg/ 0.5 mL subcutaneous solution) 1.5 Milligrams Subcutaneous (under the skin) Every week Duration: 30 Days rotate injection sites ?? Unchanged FLUoxetine (FLUoxetine 20 mg oral tablet) 2 tab Oral (given by mouth) Every day Duration: 90 Days Unchanged ibuprofen (ibuprofen 800 mg oral tablet) 3 times a day 1 Unknown ?? Unchanged ISOtretinoin (Accutane) Unchanged levonorgestrel (Mirena) [employer] Cholelithiasis Cholelithiasis is a disease in which gallstones form in the gallbladder. The gallbladder is an organ that stores bile. Bile is a fluid that helps to digest fats. Gallstones begin as small crystals and can slowly grow into stones. They may cause no symptoms until they block the gallbladder duct, or cystic duct, when the gallbladder tightens (contracts) after food is eaten. This can cause pain and is known as a gallbladder attack, or biliary colic. There are two main types of gallstones: ? Cholesterol stones. These are the most common type of gallstone. These stones are made of hardened cholesterol and are usually yellow-green in color. Cholesterol is a fat-like substance that is made in the liver. ? Pigment stones. These are dark in color and are made of a red-yellow substance, called bilirubin,that forms when hemoglobin from red blood cells breaks down. What are the causes? This condition may be caused by an imbalance in the different parts that make bile. This can happenif the bile: ? Has too much bilirubin. This can happen in certain blood diseases, such as sickle cell anemia. ? Has too much cholesterol. ? Does not have enough bile salts. These salts help the body absorb and digest fats. In some cases, this condition can also be caused by the gallbladder not emptying completely or often enough. This is common during . What increases the risk? The following factors may make you more likely to develop this condition: ? Being female. ? Having multiple pregnancies. Health care providers sometimes advise removing diseased gallbladders before future pregnancies. ? Eating a diet that is heavy in fried foods, fat, and refined carbohydrates, such as white bread andwhite rice. ? Being obese. ? Being older than age 40. ? Using medicines that contain female hormones (estrogen) for a long time. ? Losing weight quickly. ? Having a family history of gallstones. ? Having certain medical problems, such as: ? Diabetes mellitus. ? Cystic fibrosis. ? Crohn's disease. ? Cirrhosis or other long-term (chronic) liver disease. ? Certain blood diseases, such as sickle cell anemia or leukemia. What are the signs or symptoms? In many cases, having gallstones causes no symptoms. When you have gallstones but do not have symptoms, you have silent gallstones. If a gallstone blocks your bile duct, it can cause a gallbladder attack. The main symptom of a gallbladder attack is sudden pain in the upper right part of the abdomen. The pain: ? Usually comes at night or after eating. ? Can last for one hour or more. ? Can spread to your right shoulder, back, or chest. ? Can feel like indigestion. This is discomfort, burning, or fullness in your upper abdomen. If the bile duct is blocked for more than a few hours, it can cause an infection or inflammation ofyour gallbladder (cholecystitis), liver, or pancreas. This can cause: ? Nausea or vomiting. ? Bloating. ? Pain in your abdomen that lasts for 5 hours or longer. ? Tenderness in your upper abdomen, often in the upper right section and under your rib cage. ? Fever or chills. ? Skin or the white parts of your eyes turning yellow (jaundice). This usually happens when a stone has blocked bile from passing through the common bile duct. ? Dark urine or light-colored stools. How is this diagnosed? This condition may be diagnosed based on: ? A physical exam. ? Your medical history. ? Ultrasound. ? CT scan. ? MRI. You may also have other tests, including: ? Blood tests to check for signs of an infection or inflammation. ? Cholescintigraphy, or HIDA scan. This is a scan of your gallbladder and bile ducts (biliary system)using non-harmful radioactive material and special cameras that can see the radioactive material. ? Endoscopic retrograde cholangiopancreatogram. This involves inserting a small tube with a camera onthe end (endoscope) through your mouth to look at bile ducts and check for blockages. How is this treated? Treatment for this condition depends on the severity of the condition. Silent gallstones do not need treatment. Treatment may be needed if a blockage causes a gallbladder attack or other symptoms. Treatment may include: ? Home care, if symptoms are not severe. ? During a simple gallbladder attack, stop eating and drinking for 12???24 hours (except for water and clear liquids). This helps to cool down your gallbladder. After 1 or 2 days, you can start to eat a diet of simple or clear foods, such as broths and crackers. ? You may also need medicines for pain or nausea or both. ? If you have cholecystitis and an infection, you will need antibiotics. ? A hospital stay, if needed for pain control or for cholecystitis with severe infection. ? Cholecystectomy, or surgery to remove your gallbladder. This is the most common treatment if all other treatments have not worked. ? Medicines to break up gallstones. These are most effective at treating small gallstones. Medicines may be used for up to 6???12 months. ? Endoscopic retrograde cholangiopancreatogram. A small basket can be attached to the endoscope and used to capture and remove gallstones, mainly those that are in the common bile duct. Follow these instructions at home: Medicines ? Take [id number] and prescription medicines only as told by your health care provider. ? If you were prescribed an antibiotic medicine, take it as told by your health care provider. Do notstop taking the antibiotic even if you start to feel better. ? Ask your health care provider if the medicine prescribed to you requires you to avoid driving or using machinery. Eating and drinking ? Drink enough fluid to keep your urine pale yellow. This is important during a gallbladder attack. Water and clear liquids are preferred. ? Follow a healthy diet. This includes: ? Reducing fatty foods, such as fried food and foods high in cholesterol. ? Reducing refined carbohydrates, such as white bread and white rice. ? Eating more fiber. Aim for foods such as almonds, fruit, and beans. Alcohol use ? If you drink alcohol: ? Limit how much you use to: ? 0???1 drink a day for non women. ? 0???2 drinks a day for men. ? Be aware of how much alcohol is in your drink. In the [place] one drink equals one 12 oz bottle of beer (355 mL), one 5 oz glass of wine (148 mL), or one 1?? oz glass of hard liquor (44 mL). General instructions ? Do not use any products that contain nicotine or tobacco, such as cigarettes, e- cigarettes, and chewing tobacco. If you need help quitting, ask your health care provider. ? Maintain a healthy weight. ? Keep all follow-up visits as told by your health care provider. These may include consultations with a surgeon or specialist. This is important. Where to find more information ? National [place] of Diabetes and Digestive and Kidney Diseases: www.niddk.nih.gov Contact a health care provider if: ? You think you have had a gallbladder attack. ? You have been diagnosed with silent gallstones and you develop pain in your abdomen or indigestion. ? You begin to have attacks more often. ? You have dark urine or light-colored stools. Get help right away if: ? You have pain from a gallbladder attack that lasts for more than 2 hours. ? You have pain in your abdomen that lasts for more than 5 hours or is getting worse. ? You have a fever or chills. ? You have nausea and vomiting that do not go away. ? You develop jaundice. Summary ? Cholelithiasis is a disease in which gallstones form in the gallbladder. ? This condition may be caused by an imbalance in the different parts that make bile. This can happenif your bile has too much bilirubin or cholesterol, or does not have enough bile salts. ? Treatment for gallstones depends on the severity of the condition. Silent gallstones do not need treatment. ? If gallstones cause a gallbladder attack or other symptoms, treatment usually involves not eating or drinking anything. Treatment may also include pain medicines and antibiotics, and it sometimes includes a hospital stay. ? Surgery to remove the gallbladder is common if all other treatments have not worked. This information is not intended to replace advice given to you by your health care provider. Make sure you discuss any questions you have with your health care provider. Document Revised: 09/04/2020 Document Reviewed: 09/04/2020 [employer] Patient Education ?? 2021 [employer] Nonspecific Chest Pain, Adult Chest pain is an uncomfortable, tight, or painful feeling in the chest. The pain can feel like a crushing, aching, or squeezing pressure. A person can feel a burning or tingling sensation. Chest paincan also be felt in your back, neck, jaw, shoulder, or arm. This pain can be worse when you move, sneeze, or take a deep breath. Chest pain can be caused by a condition that is life-threatening. This must be treated right away. It can also be caused by something that is not life- threatening. If you have chest pain, it can be hard to know the difference, so it is important to get help right away to make sure that you do not have a serious condition. Some life-threatening causes of chest pain include: ? Heart attack. ? A tear in the body's main blood vessel (aortic dissection). ? Inflammation around your heart (pericarditis). ? A problem in the lungs, such as a blood clot (pulmonary embolism) or a collapsed lung (pneumothorax). Some non life-threatening causes of chest pain include: ? Heartburn. ? Anxiety or stress. ? Damage to the bones, muscles, and cartilage that make up your chest wall. ? Pneumonia or bronchitis. ? Shingles infection (varicella-zoster virus). Your chest pain may come and go. It may also be constant. Your health care provider will do tests and other studies to find the cause of your pain. Treatment will depend on the cause of your chest pain. Follow these instructions at home: Medicines ? Take ujxm-boh-kuybnmy and prescription medicines only as told by your health care provider. ? If you were prescribed an antibiotic medicine, take it as told by your health care provider. Do notstop taking the antibiotic even if you start to feel better. Activity ? Avoid any activities that cause chest pain. ? Do not lift anything that is heavier than 10 lb (4.5 kg), or the limit that you are told, until your health care provider says that it is safe. ? Rest as directed by your health care provider. ? Return to your normal activities only as told by your health care provider. Ask your health care provider what activities are safe for you. Lifestyle ? Do not use any products that contain nicotine or tobacco, such as cigarettes, e- cigarettes, and chewing tobacco. If you need help quitting, ask your health care provider. ? Do not drink alcohol. ? Make healthy lifestyle changes as recommended. These may include: ? Getting regular exercise. Ask your health care provider to suggest some exercises that are safe foryou. ? Eating a heart-healthy diet. This includes plenty of fresh fruits and vegetables, whole grains, low-fat (lean) protein, and low-fat dairy products. A dietitian can help you find healthy eating options. ? Maintaining a healthy weight. ? Managing any other health conditions you may have, such as high blood pressure (hypertension) or diabetes. ? Reducing stress, such as with yoga or relaxation techniques. General instructions ? Pay attention to any changes in your symptoms. ? It is up to you to get the results of any tests that were done. Ask your health care provider, or the department that is doing the tests, when your results will be ready. ? Keep all follow-up visits as told by your health care provider. This is important. ? You may be asked to go for further testing if your chest pain does not go away. Contact a health care provider if: ? Your chest pain does not go away. ? You feel depressed. ? You have a fever. ? You notice changes in your symptoms or develop new symptoms. Get help right away if: ? Your chest pain gets worse. ? You have a cough that gets worse, or you cough up blood. ? You have severe pain in your abdomen. ? You faint. ? You have sudden, unexplained chest discomfort. ? You have sudden, unexplained discomfort in your arms, back, neck, or jaw. ? You have shortness of breath at any time. ? You suddenly start to sweat, or your skin gets clammy. ? You feel nausea or you vomit. ? You suddenly feel lightheaded or dizzy. ? You have severe weakness, or unexplained weakness or fatigue. ? Your heart begins to beat quickly, or it feels like it is skipping beats. These symptoms may represent a serious problem that is an emergency. Do not wait to see if the symptoms will go away. Get medical help right away. Call your local emergency services (911 in the [place] Do not drive yourself to the hospital. Summary ? Chest pain can be caused by a condition that is serious and requires urgent treatment. It may also be caused by something that is not life-threatening. ? Your health care provider may do lab tests and other studies to find the cause of your pain. ? Follow your health care provider's instructions on taking medicines, making lifestyle changes, and getting emergency treatment if symptoms become worse. ? Keep all follow-up visits as told by your health care provider. This includes visits for any further testing if your chest pain does not go away. This information is not intended to replace advice given to you by your health care provider. Make sure you discuss any questions you have with your health care provider. Document Revised: 12/27/2021 Document Reviewed: 12/27/2021 [employer] Patient Education ?? 2021 [employer] Tests Performed Medications and Immunizations Administered Given !-Zofran, 4 mg, IV Push Dilaudid, 0.5 mg, IV Push Lidocaine Viscous, 15 mL, Mucous Membrane Mylanta Maximum Strength, 30 mL, Oral Lab Test Name Test Result Date/Time WBC 8.8 K/mcL 11/09/2022 23:22 EST RBC 4.49 Million/mcL 11/09/2022 23:22 EST Hgb 13.2 g/dL 11/09/2022 23:22 EST Hct 38.9 % 11/09/2022 23:22 EST MCV 86.6 fL 11/09/2022 23:22 EST MCH 29.4 pg 11/09/2022 23:22 EST MCHC 33.9 g/dL 11/09/2022 23:22 EST RDW-CV 12.6 % 11/09/2022 23:22 EST Platelets 285 K/mcL 11/09/2022 23:22 EST MPV 9.6 fL 11/09/2022 23:22 EST Neutro Auto 58.4 % 11/09/2022 23:22 EST Lymph Auto 33.0 % 11/09/2022 23:22 EST Ocean Auto 7.1 % 11/09/2022 23:22 EST Eos, Auto 0.90 % 11/09/2022 23:22 EST Basophil Auto 0.3 % 11/09/2022 23:22 EST Imm Gran Auto 0.3 % 11/09/2022 23:22 EST Neutro Absolute 5.1 K/mcL 11/09/2022 23:22 EST Lymph Absolute 2.9 K/mcL 11/09/2022 23:22 EST Ocean Absolute 0.6 K/mcL 11/09/2022 23:22 EST Eos Absolute 0.1 K/mcL 11/09/2022 23:22 EST Baso Absolute 0.0 K/mcL 11/09/2022 23:22 EST Imm Gran Absolute 0.03 11/09/2022 23:22 EST D Dimer, (Quant.) 240 ng/mL 11/09/2022 23:22 EST Sodium Level 135 mmol/L 11/09/2022 23:22 EST Potassium Level 3.7 mmol/L 11/09/2022 23:22 EST Chloride Level 103 mmol/L 11/09/2022 23:22 EST CO2 24 mmol/L 11/09/2022 23:22 EST Alk Phos 51 IntlUnit/L 11/09/2022 23:22 EST AST 20 IntlUnit/L 11/09/2022 23:22 EST ALT 16 IntlUnit/L 11/09/2022 23:22 EST BUN 15 mg/dL 11/09/2022 23:22 EST Glucose Level 98 mg/dL 11/09/2022 23:22 EST Creatinine Level 0.89 mg/dL 11/09/2022 23:22 EST BUN/Creat Ratio 16.9 11/09/2022 23:22 EST eGFR AA 86 11/09/2022 23:22 EST eGFR Non-AA 86 11/09/2022 23:22 EST Calcium Level 9.2 mg/dL 11/09/2022 23:22 EST Protein Total 7.4 g/dL 11/09/2022 23:22 EST Albumin Level 4.1 g/dL 11/09/2022 23:22 EST Globulin 3.3 11/09/2022 23:22 EST A/G Ratio 1.2 11/09/2022 23:22 EST Bilirubin Total 0.5 mg/dL 11/09/2022 23:22 EST Anion Gap 8.0 11/09/2022 23:22 EST Lipase Level 42 unit/L 11/09/2022 23:22 EST Magnesium Level 1.8 mg/dL 11/09/2022 23:22 EST Osmolality 271 mOsm/kg 11/09/2022 23:22 EST Troponin-I 0.01 ng/mL 11/09/2022 23:22 EST BNP 24 pg/mL 11/09/2022 23:22 EST hCG Qual Serum Negative 11/09/2022 23:22 EST TSH 5.02 mIntlUnit/mL 11/09/2022 23:22 EST Employed in healthcare? No 11/09/2022 23:00 EST Symptomatic as defined by CDC? No 11/09/2022 23:00 EST Hospitalized due to COVID-19? No 11/09/2022 23:00 EST In ICU? No 11/09/2022 23:00 EST Group care resident? No 11/09/2022 23:00 EST status? Not 11/09/2022 23:00 EST SARS-CoV-2(Covid19)PCR([facility] COVFLURSV) Neg-GeneXPert 11/09/2022 23:00 EST Flu A ([facility] COVFLURSV) Neg-GeneXPert 11/09/2022 23:00 EST Flu B ([facility] COVFLURSV) Neg-GeneXPert 11/09/2022 23:00 EST RSV ([facility] COVFLURSV) Neg-GeneXPert 11/09/2022 23:00 EST Patient/Patent Prosecution Attorney Signature Patient Name:FEDERICO NIETO I have received this information and my questions have been answered. Patient/Patent Prosecution Attorney Name: Patient/Patent Prosecution Attorney Signature: Relationship to Patient: Witness Name/Signature: Date: Electronically Signed on: 11/10/2022 03:07 ESTSigned by:TERRANCE Patient Care team information Personnel Name: Dede Soto APRN Address: Address: [address] [place] [address]
--- OUTSIDE RECORDS SUMMARY | 2023-01-31 14:58 | XMS_ITS | Continuity of Care Document ---
Author Name Unknown Organization [facility] Address [address] [place] [id number] Care Team Providers Care Cad Developer Name Role Phone ItabrandonDede barcenas Primary Care Physician Encounter LTTL_MI FIN NBR [id number] Date(s): 11/24/22 - 11/24/[address] [id number]- Encounter Diagnosis Biliary colic(Discharge Diagnosis) - 11/24/22 Discharge Disposition: Home f/u Internal Provider Attending Physician: Ezra Saunders MD Admitting Physician: Ezra Saunders MD Allergies, Adverse Reactions, Alerts Substance Reaction Severity Status nitrofurantoin Eruption Unknown Active Macrobid Moderate Active Assessment and Plan Future Scheduled Tests Laboratory* Comprehensive Metabolic Panel 09/26/22 * TSH w/ Rflx to Free T4 09/26/22 Radiology* US Abdomen Limited 11/21/22 * US Abdomen Limited 11/14/22 Immunizations Given and Recorded Vaccine Date Status Refusal Reason BCG 1 05/16/21 Recorded BCG 2 05/16/20 Recorded influenza virus vaccine, inactivated 3 09/17/16 Re corded influenza virus vaccine, inactivated 4 07/26/15 Re corded tetanus/diphth/pertuss (Tdap) adult/adol 5 05/19/15 Recorded 1Result Comment: Unit: Unknown 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[employer] [facility] 2Result Comment: Unit: Unknown 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[employer] 3Result Comment: Unit: Unknown 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[employer] 4Result Comment: 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[employer] 5Result Comment: 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[employer] Medications FLUoxetine 20 mg oral tablet 40 mg = 2 tab, Oral, Daily, # 180 tab, 3 Refill(s), Pharmacy: [id number] Start Date: 09/26/22 Stop Date: 09/21/23 Status: Ordered ibuprofen 800 mg oral tablet TID, 1 Unknown, 0 Refill(s) Start Date: 09/25/22 Status: Ordered ketorolac 10 mg oral tablet 10 mg = 1 tab, Oral, every 6 hr, PRN as needed for pain, not to exceed 40 mg/day and 5 days duration for all dose forms, # 10 tab, 0 Refill(s), Pharmacy: [id number], 167.64, cm, 11/24/22 4:40:00 EST, Height/Length Dosing, 95.6, kg, 11/24/22 4:40... Start Date: 11/24/22 Status: Ordered Mirena 0 Refill(s) Start Date: 09/25/22 Status: Ordered Trulicity Pen 1.5 mg/0.5 mL subcutaneous solution 1.5 mg =, Subcutaneous, every week, rotate injection sites, # 4 EA, 3 Refill(s), Pharmacy: [id number] Start Date: 10/17/22 Stop Date: 02/14/23 Status: Ordered Mental Status 11/24/22 Eye Opening Response [place] Spontaneous ly Best Verbal Response Jesus Oriented Best Motor Response [place] Obeys comman ds [place] Coma Score 15 Problem List Condition Confirmation [...] EGD (esophagogastroduodenosc opy) gastric outlet reduction 09/01/13 [facility] ed Colonoscopy 1 Completed History of surgery 2 Comp leted 1benign findings date 06/2019 2cyst removal on hand Unknown Date Results Laboratory List Name Date CBC w/ Diff 11/24/22 Comprehensive Metabolic Panel (CMP) 11/24 Lipase Level 11/24/22 Automated Diff 11/24/22 Most recent to oldest [Reference Range]: 1 WBC [4.8-10.8 K/mcL] 7.4 K/mcL (11/24/22 4:59 AM) RBC [4.20-6.10 Million/mcL] 4.62 Million /mcL (11/24/22 4:59 AM) Neutro Auto [42.2-75.2 %] 56.1 % (11/24/22 4:59 AM) Lymph Auto [20.5-51.1 %] 33.5 % (11/24/22 4:59 AM) Hood Auto [1.7-9.3 %] 8.3 % (11/24/22 4:59 AM) Basophil Auto [0.0-0.8 %] 0.5 % (11/24/22 4:59 AM) BUN [8-26 mg/dL] 15 mg/dL (11/24/22 4:59 AM) Glucose Level [74-106 mg/dL] 92 mg/dL (11/24/22 4:59 AM) Potassium Level [3.5-5.1 mmol/L] 3.8 mmo l/L (11/24/22 4:59 AM) Baso Absolute [0.0-0.2 K/mcL] 0.0 K/mcL (11/24/22 4:59 AM) MCV [80.0-99.0 fL] 90.9 fL (11/24/22 4:59 AM) AST [15-41 IntlUnit/L] 15 IntlUnit/L (11/24/22 4:59 AM) ALT [14-54 IntlUnit/L] 15 IntlUnit/L (11/24/22 4:59 AM) MCHC [32.0-36.0 g/dL] 32.4 g/dL (11/24/22 4:59 AM) Osmolality [275-295 mOsm/kg] 271 mOsm/kg *LOW* (11/24/22 4:59 AM) Sodium Level [134-143 mmol/L] 135 mmol/L (11/24/22 4:59 AM) Lymph Absolute [1.2-3.4 K/mcL] 2.5 K/mcL (11/24/22 4:59 AM) Hct [37.0-52.0 %] 42.0 % (11/24/22 4:59 AM) Lipase Level [18-51 unit/L] 44 unit/L (11/24/22 4:59 AM) Calcium Level [8.9-10.3 mg/dL] 8.4 mg/dL *LOW* (11/24/22 4:59 AM) Hood Absolute [0.1-0.6 K/mcL] 0.6 K/mcL (11/24/22 4:59 AM) Albumin Level [3.5-5.0 g/dL] 3.8 g/dL (11/24/22 4:59 AM) Protein Total [6.5-8.1 g/dL] 6.8 g/dL (11/24/22 4:59 AM) MCH [27.0-31.0 pg] 29.4 pg (11/24/22 4:59 AM) Neutro Absolute [1.4-6.5 K/mcL] 4.1 K/mc L (11/24/22 4:59 AM) Bilirubin Total [0.2-1.2 mg/dL] 0.3 mg/d L (11/24/22 4:59 AM) Hgb [12.0-18.0 g/dL] 13.6 g/dL (11/24/22 4:59 AM) Alk Phos [38-130 IntlUnit/L] 46 IntlUnit /L (11/24/22 4:59 AM) MPV [7.4-10.4 fL] 10.0 fL (11/24/22 4:59 AM) Platelets [130-400 K/mcL] 276 K/mcL (11/24/22 4:59 AM) CO2 [22-32 mmol/L] 24 mmol/L (11/24/22 4:59 AM) Eos Absolute [0.0-0.2 K/mcL] 0.1 K/mcL (11/24/22 4:59 AM) Chloride Level [98-111 mmol/L] 107 mmol/ L (11/24/22 4:59 AM) RDW-CV [11.5-14.5 %] 15.3 % *HI* (11/24/22 4:59 AM) A/G Ratio 1.3 *NA* (11/24/22 4:59 AM) BUN/Creat Ratio [8.0-20.0] 16.3 (11/24/22 4:59 AM) Globulin 3.0 *NA* (11/24/22 4:59 AM) Imm Gran Absolute 0.01 *NA* (11/24/22 4:59 AM) Imm Gran Auto [0.0-0.5 %] 0.1 % (11/24/22 4:59 AM) Creatinine Level [0.44-1.00 mg/dL] 0.92 mg/dL (11/24/22 4:59 AM) Anion Gap [3.0-12.0] 4.0 (11/24/22 4:59 AM) Eos, Auto [0.00-3.00 %] 1.50 % (11/24/22 4:59 AM) eGFR CKD-EPI [>=60 mL/min/1.73 m2] 83 mL /min/1.73 m2 (11/24/22 4:59 AM) Radiology Reports * Exam Date Time Procedure Performing Provider Status 11/24/22 7:[address] Abdomen and Pelvis w/ Contrast [place] Senior; Auth (Verified) Notes: (CT Abdomen and Pelvis w/ Contrast) Reason For Exam: gall pain CT Abdomen and Pelvis w/ Contrast PROCEDURE INFORMATION: Exam: CT Abdomen And Pelvis With Contrast Exam date and time: 11/24/2022 6:53 AM Age: 37 years old Clinical indication: Abdominal pain; Generalized; Patient HX: PT dx with gallstones 1 week ago, C/O recurring attacks this morning being very painful; Additional info: Gall pain TECHNIQUE: Imaging protocol: Computed tomography of the abdomen and pelvis with contrast. Radiation optimization: All CT scans at this facility use at least one of these dose optimization techniques: automated exposure control; mA and/or kV adjustment per patient size (includes targeted exams where dose is matched to clinical indication); or iterative reconstruction. Contrast material: [id number]; Contrast volume: 100 ml; Contrast route: INTRAVENOUS (IV); Other protocol: This patient has received 0 known CTs and 0 known cardiac nuclear medicine studies in the 12 months prior to the current study. COMPARISON: CR XR ABDOMEN 2 VIEWS 04/14/2019 3:57 PM FINDINGS: Tubes, catheters and devices: There is an intrauterine device present. Lungs: Minimal bilateral dependent atelectasis. Prior pulmonary granulomatous disease. Liver: The liver is homogeneous and is not enlarged. Gallbladder and bile ducts: The gallbladder is distended. There is cholelithiasis. No gallbladder wall thickening. No pericholecystic fluid or inflammation. No biliary ductal dilation. Pancreas: No pancreatic mass. No peripancreatic inflammation. No pancreatic ductal dilation. Spleen: The spleen is homogeneous and is not enlarged. Adrenal glands: No adrenal mass. Kidneys and ureters: Solitary right kidney. No nephrolithiasis. No hydronephrosis. Stomach and bowel: No bowel obstruction or diverticulitis. Appendix: The appendix has a normal caliber. There is gas in the lumen. No appendiceal wall thickening or periappendiceal inflammation. Intraperitoneal space: No ascites or pneumoperitoneum. Vasculature: No abdominal aortic aneurysm. The mesenteric arteries are patent. The mesenteric, portal, and hepatic veins are patent. Lymph nodes: Scattered small mesenteric lymph nodes. Urinary bladder: The urinary bladder is distended. No bladder calculus or wall thickening. Reproductive: There is a 2.1 cm left ovarian cyst. Bones/joints: No acute osseous abnormality. Soft tissues: Small umbilical hernia containing fat. IMPRESSION: Distended gallbladder with cholelithiasis. THIS DOCUMENT HAS BEEN ELECTRONICALLY SIGNED BY ADOLFO GUARDADO MD on 11/24/2022 08:35 AM Final Signed by: Adolfo Guardado MD Signed (Electronic Signature): 11/24/2022 8:35 am Vital Signs Most recent to oldest [Reference Range]: 1 2 Temperature Temporal Artery [36-38 Deg C ] 35.7 Deg C *LOW* (11/24/22 4:29 AM) Peripheral Pulse Rate [60-100 bpm] 60 bp m (11/24/22 9:02 AM) 73 bpm (11/24/22 4:29 AM) Respiratory Rate [12-24 br/min] 20 br/mi n (11/24/22 4:29 AM) Blood Pressure [90-140/60-90 mmHg] 107/7 8mmHg (11/24/22 9:02 AM) 137/94mmHg (11/24/22 4:29 AM) Mean Arterial Pressure Cuff 88 mmHg (11/24/22 9:02 AM) Weight 95.60 kg (11/24/22 4:29 AM) Weight Dosing 95.60 kg (11/24/22 4:40 AM) Height 167.640 cm (11/24/22 4:29 AM) Height/Length Dosing 167.640 cm (11/24/22 4:40 AM) Body Mass Index 34.000 kg/m2 (11/24/22 4:29 AM) Social History Social History Type Response Tobacco Never tobacco user T obacco Use:. Sex Hospital Discharge Instructions Patient Education 11/24/2022 07:46:35 Biliary Colic, Adult Biliary Colic, Adult Biliary colic is severe pain caused by a problem with the gallbladder. The gallbladder is a small organ in the upper right part of the abdomen. The gallbladder stores a digestive fluid produced in the liver (bile) that helps the body break down fat. Bile and other digestive enzymes are carried fromthe liver to the small intestine through tube-like structures called bile ducts. The gallbladder and the bile ducts form the biliary tract. Sometimes, hard deposits of digestive fluids (gallstones) form in the gallbladder and block the flow of bile from the gallbladder, causing biliary colic. This condition is also called a gallbladder attack. Gallstones can be as small as a grain of sand or as big as a golf ball. There could be just one gallstone in the gallbladder, or there could be many. What are the causes? This condition is usually caused by gallstones. Less often, a tumor could block the flow of bile from the gallbladder and trigger biliary colic. What increases the risk? The following factors may make you more likely to develop this condition: ??? Being female. ??? Having a family history of gallstones. ??? Being obese. ??? Losing weight suddenly or quickly. ??? Eating a diet that is high in calories, low in fiber, and rich in refined carbohydrates, such as white bread and white rice. ??? Having certain health conditions, such as: ??? An intestinal disease that affects nutrient absorption, such as Crohn's disease. ??? A metabolic condition, such as diabetes or metabolic syndrome. Metabolic syndrome occurs when someone has high blood pressure, high cholesterol, and diabetes. ??? A blood condition, such as hemolytic anemia or sickle cell disease. What are the signs or symptoms? The main symptom of this condition is severe pain in the upper right side of the abdomen. You may feel this pain below the chest but above the hip. This pain often occurs at night or after eating a meal that is high in fat. This pain may get worse for up to an hour and last as long as 12 hours. In most cases, the pain fades (subsides) within 2 hours. Other symptoms of this condition include: ??? Nausea and vomiting. ??? Pain under the right shoulder. How is this diagnosed? This condition is diagnosed based on your medical history, your symptoms, and a physical exam. You may also have tests, including: ??? Blood tests to rule out infection or inflammation of the bile ducts, gallbladder, pancreas, or liver. ??? Imaging studies, such as: ??? An ultrasound. ??? A CT scan. ??? An MRI. In some cases, you may need to have an imaging study done using a small amount of radioactive material (nuclear medicine) to confirm the diagnosis. How is this treated? This condition may be treated with medicines to: ??? Relieve your pain or nausea. ??? Dissolve the gallstones. It may take months or years before the gallstones are completely gone. If you have gallstones, or if you have a tumor in the gallbladder that is causing biliary colic, you may need surgery to remove the gallbladder (cholecystectomy). Follow these instructions at home: Eating and drinking ??? Drink enough fluid to keep your urine pale yellow. ??? Follow instructions from your health care provider about eating or drinking restrictions. Thesemay include avoiding: ??? Fatty, greasy, and fried foods. ??? Any foods that make the pain worse. ??? Overeating. ??? Having a large meal after not eating for a while. General instructions ??? Take [id number] and prescription medicines only as told by your health care provider. ??? Keep all follow-up visits as told by your health care provider. This is important. How is this prevented? Steps to prevent this condition include: ??? Maintaining a healthy body weight. ??? Getting regular exercise. ??? Eating a healthy diet that is high in fiber and low in fat. ??? Limiting how much sugar and refined carbohydrates you eat. Contact a health care provider if: ??? Your pain lasts more than 5 hours. ??? You vomit. ??? You have a fever and chills. ??? Your pain gets worse. Get help right away if: ??? Your skin or the whites of your eyes look yellow (jaundice). ??? Your have tea-colored urine and light-colored stools (feces). ??? You are dizzy or you faint. Summary ??? Biliary colic is severe pain caused by a problem with the gallbladder. The gallbladder is a small organ in the upper right part of your abdomen. ??? Treatment for this condition may include medicine to relieve your pain or nausea, or medicine to slowly dissolve the gallstones. ??? If you have gallstones, or if you have a tumor in the gallbladder that is causing biliary colic, you may need surgery to remove the gallbladder (cholecystectomy). This information is not intended to replace advice given to you by your health care provider. Make sure you discuss any questions you have with your health care provider. Document Revised: 10/24/2020 Document Reviewed: 08/15/2020 Home [employer] Therapy Patient Education ?? 2021 [employer]. Physician Emergency department Note * Ezra Saunders MD: PERFORM Event Display: ED Note Physician Authored Date: [id number] FEDERICO NIETO :1985 Age:37 years Sex:Female Visit Date:11/24/2022 Primary Care Physician: Dede Soto APRN Basic Information Time Seen: Ezra Saunders MD / 11/24/2022 08:33 Chief Complaint dx with gallstones 2 weeks ago. Pain worsening History Of Present Illness: Patient diagnosed with gallstones 2 weeks ago. ??She comes back because this morning she had the??recurrence of pain in the back with??radiation into the right upper quadrant. ??She??did see Dr. Bonilla??days ago and is going to be having an??ultrasound??of the gallbladder??to further investigate for? ?cholelithiasis.?? She??denies fever chills??vomiting diarrhea or other problems. ??She states thiswas not food related Review of Systems: ??Review of systems negative other than that stated above Physical Exam Vitals & Measurements T:??35.7?C ??(Temporal Artery)?? HR:??60??(Peripheral)?? RR:??20?? BP:??107/78?? SpO2:??99%?? HT:??167.640??cm?? WT:??95.60??kg?? BMI:??34.000?? Pain Score:??7?? O2 Therapy:??Room air?? General: Alert and oriented, well nourished, no acute distress. Eye: PERRL, EOMI, normal conjunctiva. HENT: Normocephalic,??normal hearing, moist oral mucosa, no scleral icterus, . Neck: Supple, non-tender, no carotid bruits, no JVD, no lymphadenopathy. No rigidity Lungs: Clear to auscultation and percussion, non-labored respiration. Heart: Normal rate, regular rhythm, no murmur, gallop or edema. Abdomen: Soft, right upper quadrant tenderness, non-distended, normal bowel sounds, no masses. Musculoskeletal: Normal range of motion and strength, no tenderness or swelling. Skin: Skin is warm, dry and appropriate for ethnicity, no rashes or lesions. Neurologic: Awake, alert and oriented X4, CN II-XII intact. Psychiatric: Cooperative, appropriate mood and affect. Procedure No Qualifying Data Reexamination/Reevaluation Patient given Toradol and her symptoms??basically resolved and she feels much better.?? She was??prescribed a limited amount of Toradol to be used for pain. ??She will continue follow-up with??the surgeon and??with ultrasound and return to ED as needed Assessment/Plan 1.??Biliary colic??K80.50 Ordered: Toradol, 10 mg = 1 tab, Oral, Tab, every 6 hr for 5 days, PRN pain, First Dose: 11/24/22 9:01:00 EST, Stop Date: 11/29/22 9:00:00 EST, Physician Stop ?? Orders: ketorolac 10 mg oral tablet, 10 mg = 1 tab, Oral, every 6 hr, PRN as needed for pain, not to ninizz02 mg/day and 5 days duration for all dose forms, # 10 tab, 0 Refill(s), Pharmacy: [id number], 167.64, cm, 11/24/22 4:40:00 EST, Height/Length Dosing, 95.6, kg, 11/24/22 4:40... Patient Education Biliary Colic, Adult Medication Reconciliation New Prescription ketorolac (ketorolac 10 mg oral tablet)1 tab Oral (given by mouth) every 6 hours as needed as needed for pain. not to exceed 40 mg/day and 5 days duration for all dose forms. Refills: 0. ?? Unchanged dulaglutide (Trulicity Pen 1.5 mg/0.5 mL subcutaneous solution)1.5 Milligrams Subcutaneous (under the skin) every week for 30 Days. rotate injection sites. Refills: 3. ?? FLUoxetine (FLUoxetine 20 mg oral tablet)2 tab Oral (given by mouth) every day for 90 Days. Refills: 3. ?? ibuprofen (ibuprofen 800 mg oral tablet)3 times a day. 1 Unknown. ?? levonorgestrel (Mirena) Problem List/Past Medical History Ongoing Acne Acute esophagitis Anxiety Chronic UTI COVID Diarrhea Disorder of stomach Epigastric pain Helicobacter-associated gastritis Incomplete emptying of bladder Intrauterine contraceptive device in situ Irritable bowel syndrome with diarrhea Loss of appetite Major depression, single episode Mixed anxiety and depressive disorder Nausea Reactive depression (situational) Recurrent urinary tract infection Renal agenesis Retention of urine Transitory mood disturbance Urinary tract infectious disease Weight loss Historical Procedure/Surgical History ???EGD (esophagogastroduodenoscopy) gastric outlet reduction (09/02/2013)???Colonoscopy???History of surgery Medication Administration Given !-Zofran, 4 mg, IV Push ketorolac, 30 mg, IV Toradol, 10 mg, Oral. For: Biliary colic Allergies Macrobid nitrofurantoin??(Eruption) Social History Alcohol Current, 1-2 times per month Electronic Cigarette/Vaping Electronic Cigarette Use: Never. Tobacco Never tobacco user Tobacco Use:. Family History Diabetes mellitus: Mother. Diagnostic Results CT Abdomen and Pelvis w/ Contrast 11/24/2022 08:[address] Abdomen and Pelvis w/ Contrast ?? 11/24/22 06:53:04 PROCEDURE INFORMATION: Exam: CT Abdomen And Pelvis With Contrast Exam date and time: 11/24/2022 6:53 AM Age: 37 years old Clinical indication: Abdominal pain; Generalized; Patient HX: PT dx with gallstones 1 week ago, C/O recurring attacks this morning being very painful; Additional info: Gall pain ?? TECHNIQUE: Imaging protocol: Computed tomography of the abdomen and pelvis with contrast. Radiation optimization: All CT scans at this facility use at least one of these dose optimization techniques: automated exposure control; mA and/or kV adjustment per patient size (includes targeted exams where dose is matched to clinical indication); or iterative reconstruction. Contrast material: [id number]; Contrast volume: 100 ml; Contrast route: INTRAVENOUS (IV); Other protocol: This patient has received 0 known CTs and 0 known cardiac nuclear medicine studies in the 12 months prior to the current study. ?? COMPARISON: CR XR ABDOMEN 2 VIEWS 04/14/2019 3:57 PM ?? FINDINGS: Tubes, catheters and devices: There is an intrauterine device present. ?? Lungs: Minimal bilateral dependent atelectasis. Prior pulmonary granulomatous disease. ?? Liver: The liver is homogeneous and is not enlarged. Gallbladder and bile ducts: The gallbladder is distended. There is cholelithiasis. No gallbladder wall thickening. No pericholecystic fluid or inflammation. No biliary ductal dilation. Pancreas: No pancreatic mass. No peripancreatic inflammation. No pancreatic ductal dilation. Spleen: The spleen is homogeneous and is not enlarged. Adrenal glands: No adrenal mass. Kidneys and ureters: Solitary right kidney. No nephrolithiasis. No hydronephrosis. Stomach and bowel: No bowel obstruction or diverticulitis. Appendix: The appendix has a normal caliber. There is gas in the lumen. No appendiceal wall thickening or periappendiceal inflammation. ?? Intraperitoneal space: No ascites or pneumoperitoneum. Vasculature: No abdominal aortic aneurysm. The mesenteric arteries are patent. The mesenteric, portal, and hepatic veins are patent. Lymph nodes: Scattered small mesenteric lymph nodes. Urinary bladder: The urinary bladder is distended. No bladder calculus or wall thickening. Reproductive: There is a 2.1 cm left ovarian cyst. Bones/joints: No acute osseous abnormality. Soft tissues: Small umbilical hernia containing fat. ?? IMPRESSION: Distended gallbladder with cholelithiasis. ? THIS DOCUMENT HAS BEEN ELECTRONICALLY SIGNED BY ADOLFO GUARDADO MD on 11/24/2022 08:35 AM ?? Signed By: Adolfo Guardado MD Diagnostic Study Interpretation: CT abdomen pelvis according to radiology does show??cholelithiasis with some gallbladder??wall thickening. ??No fluid or acute cholecystitis Lab Results CBC and Differential?? LATEST RESULTS?? HISTORICAL RESULTS?? WBC?? 11/24/22 04:59?? 7.4?? 11/09/22?? 8.8?? RBC?? 11/24/22 04:59?? 4.62?? 11/09/22?? 4.49?? Hgb?? 11/24/22 04:59?? 13.6?? 11/09/22?? 13.2?? Hct?? 11/24/22 04:59?? 42.0?? 11/09/22?? 38.9?? MCV?? 11/24/22 04:59?? 90.9?? 11/09/22?? 86.6?? MCH?? 11/24/22 04:59?? 29.4?? 11/09/22?? 29.4?? MCHC?? 11/24/22 04:59?? 32.4?? 11/09/22?? 33.9?? RDW-CV?? 11/24/22 04:59?? 15.3 ??High?? 11/09/22?? 12.6?? Platelets?? 11/24/22 04:59?? 276?? 11/09/22?? 285?? MPV?? 11/24/22 04:59?? 10.0?? 11/09/22?? 9.6?? Neutro Auto?? 11/24/22 04:59?? 56.1?? 11/09/22?? 58.4?? Lymph Auto?? 11/24/22 04:59?? 33.5?? 11/09/22?? 33.0?? Hood Auto?? 11/24/22 04:59?? 8.3?? 11/09/22?? 7.1?? Eos, Auto?? 11/24/22 04:59?? 1.50?? 11/09/22?? 0.90?? Basophil Auto?? 11/24/22 04:59?? 0.5?? 11/09/22?? 0.3?? Imm Gran Auto?? 11/24/22 04:59?? 0.1?? 11/09/22?? 0.3?? Neutro Absolute?? 11/24/22 04:59?? 4.1?? 11/09/22?? 5.1?? Lymph Absolute?? 11/24/22 04:59?? 2.5?? 11/09/22?? 2.9?? Hood Absolute?? 11/24/22 04:59?? 0.6?? 11/09/22?? 0.6?? Eos Absolute?? 11/24/22 04:59?? 0.1?? 11/09/22?? 0.1?? Baso Absolute?? 11/24/22 04:59?? 0.0?? 11/09/22?? 0.0?? Imm Gran Absolute?? 11/24/22 04:59?? 0.01?? 11/09/22?? 0.03? Routine Chemistry?? LATEST RESULTS?? HISTORICAL RESULTS?? Sodium Level?? 11/24/22 04:59?? 135?? 11/09/22?? 135?? Potassium Level?? 11/24/22 04:59?? 3.8?? 11/09/22?? 3.7?? Chloride Level?? 11/24/22 04:59?? 107?? 11/09/22?? 103?? CO2?? 11/24/22 04:59?? 24?? 11/09/22?? 24?? Alk Phos?? 11/24/22 04:59?? 46?? 11/09/22?? 51?? AST?? 11/24/22 04:59?? 15?? 11/09/22?? 20?? ALT?? 11/24/22 04:59?? 15?? 11/09/22?? 16?? BUN?? 11/24/22 04:59?? 15?? 11/09/22?? 15?? Glucose Level?? 11/24/22 04:59?? 92?? 11/09/22?? 98?? Creatinine Level?? 11/24/22 04:59?? 0.92?? 11/09/22?? 0.89?? BUN/Creat Ratio?? 11/24/22 04:59?? 16.3?? 11/09/22?? 16.9?? Calcium Level?? 11/24/22 04:59?? 8.4 ??Low?? 11/09/22?? 9.2?? Protein Total?? 11/24/22 04:59?? 6.8?? 11/09/22?? 7.4?? Albumin Level?? 11/24/22 04:59?? 3.8?? 11/09/22?? 4.1?? Globulin?? 11/24/22 04:59?? 3.0?? 11/09/22?? 3.3?? A/G Ratio?? 11/24/22 04:59?? 1.3?? 11/09/22?? 1.2?? Bilirubin Total?? 11/24/22 04:59?? 0.3?? 11/09/22?? 0.5?? Anion Gap?? 11/24/22 04:59?? 4.0?? 11/09/22?? 8.0?? Lipase Level?? 11/24/22 04:59?? 44?? 11/09/22?? 42?? Osmolality?? 11/24/22 04:59?? 271 ??Low?? 11/09/22?? 271 ??Low?? eGFR CKD-EPI?? 11/24/22 04:59?? 83? Electronically Signed on 11/24/22 09:09 AM Ezra Saunders MD Emergency department Discharge instructions * Ezra Saunders MD: PERFORM Event Display: ED Discharge Information Authored Date: [id number] FEDERICO NIETO :1985 Age:37 years Sex:Female Visit Date:11/24/2022 Primary Care Physician: Dede Soto APRN Discharge Instructions We would like to thank you for allowing us to assist you with your healthcare needs. The following includes patient education materials and information regarding your injury/illness. Diagnosis from Today's Visit Biliary colic Discharge Vitals Temperature??(Temporal Artery) 96.3 ??F (35.7 ??C) Heart Rate??(Peripheral) 73 Respiratory Rate?? 20 Blood Pressure?? 137/94?? Height?? 66.00 in (167.640 cm) Weight?? 210.80 lb (95.60 kg) BMI?? 34.000 Allergies Macrobid nitrofurantoin??(Eruption) What to Do Next Instructions from Your Care Team Follow-up with Dr. Paige within the next 1 to 2 days.?? Toradol as prescribed for pain.?Ultrasound as previously arranged. ??Return to ED??for worsening symptoms You were treated today on an emergency [...] What How Much When Instructions Next Dose New ketorolac (ketorolac 10 mg oral tablet) 1 tab Oral (given by mouth) Every 6 hours as needed for as needed for pain not to exceed 40 mg/ day and 5 days duration for all dose forms ?? Pickup at [facility] Unchanged dulaglutide (Trulicity Pen 1.5 mg/ 0.5 mL subcutaneous solution) 1.5 Milligrams Subcutaneous (under the skin) Every week Duration: 30 Days rotate injection sites ?? Unchanged FLUoxetine (FLUoxetine 20 mg oral tablet) 2 tab Oral (given by mouth) Every day Duration: 90 Days Unchanged ibuprofen (ibuprofen 800 mg oral tablet) 3 times a day 1 Unknown ?? Unchanged levonorgestrel (Mirena) Pharmacy Information [email or web address]: [address] [place], [place] [id number] [phone] Education Materials Biliary Colic, Adult Biliary colic is severe pain caused by a problem with the gallbladder. The gallbladder is a small organ in the upper right part of the abdomen. The gallbladder stores a digestive fluid produced in the liver (bile) that helps the body break down fat. Bile and other digestive enzymes are carried fromthe liver to the small intestine through tube-like structures called bile ducts. The gallbladder and the bile ducts form the biliary tract. Sometimes, hard deposits of digestive fluids (gallstones) form in the gallbladder and block the flow of bile from the gallbladder, causing biliary colic. This condition is also called a gallbladder attack. Gallstones can be as small as a grain of sand or as big as a golf ball. There could be just one gallstone in the gallbladder, or there could be many. What are the causes? This condition is usually caused by gallstones. Less often, a tumor could block the flow of bile from the gallbladder and trigger biliary colic. What increases the risk? The following factors may make you more likely to develop this condition: ? Being female. ? Having a family history of gallstones. ? Being obese. ? Losing weight suddenly or quickly. ? Eating a diet that is high in calories, low in fiber, and rich in refined carbohydrates, such as white bread and white rice. ? Having certain health conditions, such as: ? An intestinal disease that affects nutrient absorption, such as Crohn's disease. ? A metabolic condition, such as diabetes or metabolic syndrome. Metabolic syndrome occurs when someone has high blood pressure, high cholesterol, and diabetes. ? A blood condition, such as hemolytic anemia or sickle cell disease. What are the signs or symptoms? The main symptom of this condition is severe pain in the upper right side of the abdomen. You may feel this pain below the chest but above the hip. This pain often occurs at night or after eating a meal that is high in fat. This pain may get worse for up to an hour and last as long as 12 hours. In most cases, the pain fades (subsides) within 2 hours. Other symptoms of this condition include: ? Nausea and vomiting. ? Pain under the right shoulder. How is this diagnosed? This condition is diagnosed based on your medical history, your symptoms, and a physical exam. You may also have tests, including: ? Blood tests to rule out infection or inflammation of the bile ducts, gallbladder, pancreas, or liver. ? Imaging studies, such as: ? An ultrasound. ? A CT scan. ? An MRI. In some cases, you may need to have an imaging study done using a small amount of radioactive material (nuclear medicine) to confirm the diagnosis. How is this treated? This condition may be treated with medicines to: ? Relieve your pain or nausea. ? Dissolve the gallstones. It may take months or years before the gallstones are completely gone. If you have gallstones, or if you have a tumor in the gallbladder that is causing biliary colic, you may need surgery to remove the gallbladder (cholecystectomy). Follow these instructions at home: Eating and drinking ? Drink enough fluid to keep your urine pale yellow. ? Follow instructions from your health care provider about eating or drinking restrictions. These mayinclude avoiding: ? Fatty, greasy, and fried foods. ? Any foods that make the pain worse. ? Overeating. ? Having a large meal after not eating for a while. General instructions ? Take buma-opw-jsqddzj and prescription medicines only as told by your health care provider. ? Keep all follow-up visits as told by your health care provider. This is important. How is this prevented? Steps to prevent this condition include: ? Maintaining a healthy body weight. ? Getting regular exercise. ? Eating a healthy diet that is high in fiber and low in fat. ? Limiting how much sugar and refined carbohydrates you eat. Contact a health care provider if: ? Your pain lasts more than 5 hours. ? You vomit. ? You have a fever and chills. ? Your pain gets worse. Get help right away if: ? Your skin or the whites of your eyes look yellow (jaundice). ? Your have tea-colored urine and light-colored stools (feces). ? You are dizzy or you faint. Summary ? Biliary colic is severe pain caused by a problem with the gallbladder. The gallbladder is a small organ in the upper right part of your abdomen. ? Treatment for this condition may include medicine to relieve your pain or nausea, or medicine to slowly dissolve the gallstones. ? If you have gallstones, or if you have a tumor in the gallbladder that is causing biliary colic, you may need surgery to remove the gallbladder (cholecystectomy). This information is not intended to replace advice given to you by your health care provider. Make sure you discuss any questions you have with your health care provider. Document Revised: 10/24/2020 Document Reviewed: 08/15/2020 Home Team Therapy Patient Education ?? 2021 [employer]. Tests Performed Radiology CT Abdomen and Pelvis w/ Contrast 11/24/2022 08:35 EST Medications and Immunizations Administered Given !-Zofran, 4 mg, IV Push ketorolac, 30 mg, IV Lab Test Name Test Result Date/Time WBC 7.4 K/mcL 11/24/2022 04:59 EST RBC 4.62 Million/mcL 11/24/2022 04:59 EST Hgb 13.6 g/dL 11/24/2022 04:59 EST Hct 42.0 % 11/24/2022 04:59 EST MCV 90.9 fL 11/24/2022 04:59 EST MCH 29.4 pg 11/24/2022 04:59 EST MCHC 32.4 g/dL 11/24/2022 04:59 EST RDW-CV 15.3 % 11/24/2022 04:59 EST Platelets 276 K/mcL 11/24/2022 04:59 EST MPV 10.0 fL 11/24/2022 04:59 EST Neutro Auto 56.1 % 11/24/2022 04:59 EST Lymph Auto 33.5 % 11/24/2022 04:59 EST Hood Auto 8.3 % 11/24/2022 04:59 EST Eos, Auto 1.50 % 11/24/2022 04:59 EST Basophil Auto 0.5 % 11/24/2022 04:59 EST Imm Gran Auto 0.1 % 11/24/2022 04:59 EST Neutro Absolute 4.1 K/mcL 11/24/2022 04:59 EST Lymph Absolute 2.5 K/mcL 11/24/2022 04:59 EST Hood Absolute 0.6 K/mcL 11/24/2022 04:59 EST Eos Absolute 0.1 K/mcL 11/24/2022 04:59 EST Baso Absolute 0.0 K/mcL 11/24/2022 04:59 EST Imm Gran Absolute 0.01 11/24/2022 04:59 EST Sodium Level 135 mmol/L 11/24/2022 04:59 EST Potassium Level 3.8 mmol/L 11/24/2022 04:59 EST Chloride Level 107 mmol/L 11/24/2022 04:59 EST CO2 24 mmol/L 11/24/2022 04:59 EST Alk Phos 46 IntlUnit/L 11/24/2022 04:59 EST AST 15 IntlUnit/L 11/24/2022 04:59 EST ALT 15 IntlUnit/L 11/24/2022 04:59 EST BUN 15 mg/dL 11/24/2022 04:59 EST Glucose Level 92 mg/dL 11/24/2022 04:59 EST Creatinine Level 0.92 mg/dL 11/24/2022 04:59 EST BUN/Creat Ratio 16.3 11/24/2022 04:59 EST Calcium Level 8.4 mg/dL 11/24/2022 04:59 EST Protein Total 6.8 g/dL 11/24/2022 04:59 EST Albumin Level 3.8 g/dL 11/24/2022 04:59 EST Globulin 3.0 11/24/2022 04:59 EST A/G Ratio 1.3 11/24/2022 04:59 EST Bilirubin Total 0.3 mg/dL 11/24/2022 04:59 EST Anion Gap 4.0 11/24/2022 04:59 EST Lipase Level 44 unit/L 11/24/2022 04:59 EST Osmolality 271 mOsm/kg 11/24/2022 04:59 EST eGFR CKD-EPI 83 mL/min/1.73 m2 11/24/2022 04:59 EST Patient/Certified Health Education Specialist Signature Patient Name:AHMET NIETOCindy Posadas I have received this information and my questions have been answered. Patient/Certified Health Education Specialist Name: Patient/Certified Health Education Specialist Signature: Relationship to Patient: Witness Name/Signature: Date: Electronically Signed on: 11/24/2022 08:53 ESTSigned by:AFB CT Abdomen and Pelvis W contrast IV * Adolfo Guardado MD: VERIFY, VERIFY Event Display: Report PROCEDURE INFORMATION: Exam: CT Abdomen And Pelvis With Contrast Exam date and time: 11/24/2022 6:53 AM Age: 37 years old Clinical indication: Abdominal pain; Generalized; Patient HX: PT dx with gallstones 1 week ago, C/O recurring attacks this morning being very painful; Additional info: Gall pain TECHNIQUE: Imaging protocol: Computed tomography of the abdomen and pelvis with contrast. Radiation optimization: All CT scans at this facility use at least one of these dose optimization techniques: automated exposure control; mA and/or kV adjustment per patient size (includes targeted exams where dose is matched to clinical indication); or iterative reconstruction. Contrast material: [id number]; Contrast volume: 100 ml; Contrast route: INTRAVENOUS (IV); Other protocol: This patient has received 0 known CTs and 0 known cardiac nuclear medicine studies in the 12 months prior to the current study. COMPARISON: CR XR ABDOMEN 2 VIEWS 04/14/2019 3:57 PM FINDINGS: Tubes, catheters and devices: There is an intrauterine device present. Lungs: Minimal bilateral dependent atelectasis. Prior pulmonary granulomatous disease. Liver: The liver is homogeneous and is not enlarged. Gallbladder and bile ducts: The gallbladder is distended. There is cholelithiasis. No gallbladder wall thickening. No pericholecystic fluid or inflammation. No biliary ductal dilation. Pancreas: No pancreatic mass. No peripancreatic inflammation. No pancreatic ductal dilation. Spleen: The spleen is homogeneous and is not enlarged. Adrenal glands: No adrenal mass. Kidneys and ureters: Solitary right kidney. No nephrolithiasis. No hydronephrosis. Stomach and bowel: No bowel obstruction or diverticulitis. Appendix: The appendix has a normal caliber. There is gas in the lumen. No appendiceal wall thickening or periappendiceal inflammation. Intraperitoneal space: No ascites or pneumoperitoneum. Vasculature: No abdominal aortic aneurysm. The mesenteric arteries are patent. The mesenteric, portal, and hepatic veins are patent. Lymph nodes: Scattered small mesenteric lymph nodes. Urinary bladder: The urinary bladder is distended. No bladder calculus or wall thickening. Reproductive: There is a 2.1 cm left ovarian cyst. Bones/joints: No acute osseous abnormality. Soft tissues: Small umbilical hernia containing fat. IMPRESSION: Distended gallbladder with cholelithiasis. THIS DOCUMENT HAS BEEN ELECTRONICALLY SIGNED BY ADOLFO GUARDADO MD on 11/24/2022 08:35 AM Final Signed by: Adolfo Guardado MD Signed (Electronic Signature): 11/24/2022 8:35 am Patient Care team information Personnel Name: Dede Soto APRN Address: Address: [address] [place] [address] [address]
--- OUTSIDE RECORDS SUMMARY | 2023-01-31 14:58 | XMS_ITS | Continuity of Care Document ---
Author Name Unknown Organization [facility] Ambulatory Clinics Address [address] [place] [address] Care Team Providers Care Statistical Technician Name Role Phone Dede Soto Primary Care Physician [phone] Encounter [facility]BR [id number] Date(s): 09/26/22 - 09/26/22 [facility] Ambulatory Clinics [address] [place], [place] [address] Encounter Diagnosis Mixed anxiety and depressive disorder(Discharge Diagnosis) - 09/27/22 Weight gain(Discharge Diagnosis) - 09/27/22 Discharge Disposition: Home or Self Care Attending Physician: Dede Soto APRN Allergies, Adverse Reactions, Alerts No Known Medication Allergies Assessment and Plan Future Scheduled Tests Laboratory* Comprehensive Metabolic Panel 09/26/22 * TSH w/ Rflx to Free T4 09/26/22 Functional Status 09/26/22 Other exposure to Infectious Disease Non e Immunizations Given and Recorded Vaccine Date Status Refusal Reason BCG 1 05/16/21 Recorded BCG 2 05/16/20 Recorded influenza virus vaccine, inactivated 3 09/17/16 Re corded influenza virus vaccine, inactivated 4 07/26/15 Re corded tetanus/diphth/pertuss (Tdap) adult/adol 5 05/19/15 Recorded 1Result Comment: Unit: Unknown Bean Sprout Grower: [employer] Tech 2Result Comment: Unit: Unknown Bean Sprout Grower: Sanofi Pasteur 3Result Comment: Unit: Unknown Bean Sprout Grower: GlaxoSmithKline 4Result Comment: Bean Sprout Grower: GlaxoSmithKline 5Result Comment: Bean Sprout Grower: Sanofi Pasteur Medications Accutane 0 Refill(s) Start Date: 09/25/22 Status: Ordered FLUoxetine 20 mg oral tablet 40 mg = 2 tab, Oral, Daily, # 180 tab, 3 Refill(s), Pharmacy: [id number] Start Date: 09/26/22 Stop Date: 09/21/23 Status: Ordered ibuprofen 800 mg oral tablet TID, 1 Unknown, 0 Refill(s) Start Date: 09/25/22 Status: Ordered Mirena 0 Refill(s) Start Date: 09/25/22 Status: Ordered Trulicity Pen 0.75 mg/0.5 mL subcutaneous solution 0.75 mg = 0.5 mL, Subcutaneous, every week, rotate injection sites, # 2.5 mL, 3 Refill(s), Pharmacy: [id number] Start Date: 09/27/22 Stop Date: 01/25/23 Status: Ordered Problem List Condition Confirmation Course Effective Dates [...] disease Confirmed Active Weight loss Confirmed Active Vital Signs Most recent to oldest [Reference Range]: 1 Temperature Tympanic [36.6-37.9 Deg C] 3 6.4 Deg C *LOW* (09/26/22 2:42 PM) Peripheral Pulse Rate [60-100 bpm] 80 bp m (09/26/22 2:42 PM) Blood Pressure [90-140/60-90 mmHg] 118/7 0mmHg (09/26/22 2:42 PM) Weight 102.3 kg (09/26/22 2:42 PM) Weight Measured (lbs) 225.533 lb (09/26/22 2:42 PM) Social History Social History Type Response Tobacco Never tobacco user T obacco Use:. Sex Hospital Discharge Instructions Follow Up Care 08/29/2022 08:20:42 With:Dede Soto APRN Address: [address] [place] [address] [place], [place] [id number]- When:3 Months Comments:Follow up candice Troy. Physician Outpatient Note * Dede Soto APRN: PERFORM Event Display: Office Clinic Note Physician Authored Date: [id number] JOSEPHINE NIETO :1985 Age:37 years Sex:Female Visit Date:09/26/2022 Primary Care Physician: Dede Soto APRN Chief Complaint Medication follow up, discuss weight loss. History of Present Illness Josephine is seen today for a medication follow up.?? She is having a difficult time with motivation and just not wanting to complete tasks.?? She is pretty stressed at this point, 2 weeks from finals [facility] [employer] program.?? She continues to work 3 days a week, has 3 kids and is going to school in [place].?? She thinks increasing her Fluoxetine at this point would be a good idea.?? She is also concerned about her continued weight gain.?? She believes she has gradually gained about 75 pounds over 10 years.?? She now feels very heavy and is concerned about this.?? TSH was checked 2 years ago and was WNL.?? She does not exercise much, feels her diet is good and not contributing to??her weight gain.?? She would like to discuss medication options for weight loss. Review of Systems Constitutional:?No??fevers,?No??chills,?No??sweats Eye:?No??recent visual problems ENT:?No??ear pain,?No??nasal congestion,?No??sore throat Respiratory:?No??shortness of breath,?No??cough Cardiovascular:?No??Chest pain,?No??palpitations,?No??syncope Gastrointestinal:?Nonausea,?No??vomiting,?No??diarrhea Genitourinary:?No??hematuria Hal/Lymph:?No??bruising tendency,?No??swollen lymph glands Endocrine:?No??excessive thirst,??No??excessive hunger Musculoskeletal:??No??back pain,??No??neck pain,??No??joint pain,??No??muscle pain,??No??decreased range of motion Integumentary:?No??rash,?No??pruritus,?No??abrasions Neurologic: Alert & oriented X 4 Psychiatric:?No??anxiety,?No??depression Physical Exam Vitals & Measurements T:??36.4?C ??(Tympanic)?? HR:??80??(Peripheral)?? BP:??118/70?? SpO2:??96%?? WT:??102.3??kg?? General: Alert and oriented, well nourished,??obese??No??acute distress Eye: PERRL, EOMI,?Normal??conjunctiva HENT: Normocephalic, clear tympanic membranes,?Normal?? hearing, moist oral mucosa,?No??scleral icterus,?No??sinus tenderness Neck: Supple, non-tender,?No??carotid bruits,?No??JVD,?No??lymphadenopathy Lungs: Clear to auscultation and percussion,?Non-labored?? respiration Heart:?Normal?? rate,?Regular??rhythm,?No??murmur,?No??gallop,?No??edema Abdomen: Soft, non-tender, non-distended,?Normal?? bowel sounds,?No??masses Musculoskeletal:?Normal?? range of motion and strength,?No??tenderness,?No??swelling Skin: Skin is warm, dry and pink,?No??rashes,?No??lesions Neurologic: Awake, alert and oriented X4, CN II-XII intact Psychiatric: Cooperative, appropriate mood and affect ?? Assessment/Plan 1.??Mixed anxiety and depressive disorder??F41.8 Josephine is a 37 year old female with increased depression and anxiety and difficulty getting motivated to accomplish tasks.?? 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 We agreed to increase her Fluoxetine to 40 mg daily and see if this is more effective for her.?? She has no SI or severely low moods. ?? 2.??Weight gain??R63.5 She is quite concerned about her continued weight gain and we discussed that some of it is likely related to her stress right now, lack of exercise and what she is eating, even if she thinks it is not contributing.?? We will try Trulicity for 3 months, as she is overweight and would benefit from weight loss for her health.?? We discussed the medication risks, benefits and side effects.?? She willcall with concerns.?? She is going to have a CMP and TSH done at [facility] this week and have the results sent here.?? She was given the order sheets for these. Ordered: TSH w/ Rflx to Free T4, Blood, Routine, 09/26/22, Once, Lab Collect, Weight gain, Order for future visit ?? Orders: Trulicity Pen 0.75 mg/0.5 mL subcutaneous solution, 0.75 mg = 0.5 mL, Subcutaneous, every week, rotate injection sites, # 2.5 mL, 3 Refill(s), Pharmacy: [id number] FLUoxetine 20 mg oral tablet, 40 mg = 2 tab, Oral, Daily, # 180 tab, 3 Refill(s), Pharmacy: [id number] Comprehensive Metabolic Panel, Blood, Routine, 09/26/22, Once, Lab Collect, Screening for cardiovascular condition, Order for future visit Future Orders Comprehensive Metabolic Panel, Blood, Routine, 09/26/22, Once, Lab Collect, Screening for cardiovascular condition, Order for future visit TSH w/ Rflx to Free T4, Blood, Routine, 09/26/22, Once, Lab Collect, Weight gain, Order for future visit Follow Up Instructions With When Contact Information Dede Soto APRN Within 3 Months [address] [facility] [address] [place] [address]- Additional Instructions: Follow up Trulicity, weight. Problem List/Past Medical History Ongoing Acne Acute [...] Urinary tract infectious disease Weight loss Historical Medications Accutane FLUoxetine 20 mg oral tablet, 40 mg= 2 tab, Oral, Daily, 3 refills ibuprofen 800 mg oral tablet, TID Mirena Trulicity Pen 0.75 mg/0.5 mL subcutaneous solution, 0.75 mg= 0.5 mL, Subcutaneous, every week, 3 refills Allergies No Known Medication Allergies Social History Electronic Cigarette/Vaping Electronic Cigarette Use: Never. Tobacco Never tobacco user Tobacco Use:. Immunizations Vaccine Date Status BCG 05/16/2021 Recorded Comments : Unit: Unknown Bean Sprout Grower: [employer] Tech BCG 05/16/2020 Recorded Comments : Unit: Unknown Bean Sprout Grower: Sanofi Pasteur influenza virus vaccine, inactivated 09/17/2016 Recorded Comments : Unit: Unknown Bean Sprout Grower: GlaxoSmithKline influenza virus vaccine, inactivated 07/26/2015 Recorded Comments : Bean Sprout Grower: GlaxoSmithKline tetanus/diphth/pertuss (Tdap) adult/adol 05/19/2015 Recorded Comments : Bean Sprout Grower: Sanofi Pasteur Electronically Signed on 09/27/22 09:37 AM Dede Soto APRN Patient Care team information Personnel Name: Dede Soto APRN Address: Address: [address] [place] [address] [place] [address]
--- OUTSIDE RECORDS SUMMARY | 2023-01-31 14:58 | XMS_ITS | Continuity of Care Document ---
Author Name Unknown Organization [facility] Ambulatory Clinics Address [address] [place] [address] Care Team Providers Care Assembler Erector Name Role Phone Dede Soto Primary Care Physician Encounter [facility] NBR [id number] Date(s): 11/14/22 - 11/14/22 [facility] Ambulatory Clinics [address] [place] [address]- Encounter Diagnosis Subclinical hypothyroidism(Discharge Diagnosis) - 11/14/22 Discharge Disposition: Home or Self Care Attending Physician: Dede Soto APRN Allergies, Adverse Reactions, Alerts Substance Reaction Severity Status Macrobid Moderate Active Assessment and Plan Future Scheduled Tests Laboratory* Comprehensive Metabolic Panel 09/26/22 * TSH w/ Rflx to Free T4 09/26/22 Radiology* US Abdomen Limited 11/14/22 Immunizations Given and Recorded Vaccine Date Status Refusal Reason BCG 1 05/16/21 Recorded BCG 2 05/16/20 Recorded influenza virus vaccine, inactivated 3 09/17/16 Re corded influenza virus vaccine, inactivated 4 07/26/15 Re corded tetanus/diphth/pertuss (Tdap) adult/adol 5 05/19/15 Recorded 1Result Comment: Unit: Unknown Fly Tier: [employer] 2Result Comment: Unit: Unknown Fly Tier: Sanofi Pasteur 3Result Comment: Unit: Unknown Fly Tier: GlaxoSmithKline 4Result Comment: Fly Tier: GlaxoSmithKline 5Result Comment: Fly Tier: Sanofi Pasteur Medications Accutane 0 Refill(s) Start Date: 09/25/22 Status: Ordered FLUoxetine 20 mg oral tablet 40 mg = 2 tab, Oral, Daily, # 180 tab, 3 Refill(s), Pharmacy: [facility] Start Date: 09/26/22 Stop Date: 09/21/23 Status: Ordered ibuprofen 800 mg oral tablet TID, 1 Unknown, 0 Refill(s) Start Date: 09/25/22 Status: Ordered Mirena 0 Refill(s) Start Date: 09/25/22 Status: Ordered Trulicity Pen 1.5 mg/0.5 mL subcutaneous solution 1.5 mg =, Subcutaneous, every week, rotate injection sites, # 4 EA, 3 Refill(s), Pharmacy: [id number] Start Date: 10/17/22 Stop Date: 02/14/23 Status: Ordered Problem List Condition Confirmation Course [...] EGD (esophagogastroduodenosc opy) gastric outlet reduction 09/01/13 [facility] ed Colonoscopy 1 Completed History of surgery 2 Comp leted 1benign findings date 06/2019 2cyst removal on hand Unknown Date Social History Social History Type Response Tobacco Never tobacco user T obacco Use:. Sex Patient Care team information Personnel Name: Dede Soto APRN Address: Address: [address] [place] [address] [address]
--- OUTSIDE RECORDS SUMMARY | 2023-01-31 14:58 | XMS_ITS | Continuity of Care Document ---
Author Name Unknown Organization [facility] Ambulatory Clinics Address [address] [place] [address] Care Team Providers Care Pbx Operator Name Role Phone Dede Soto Primary Care Physician Encounter [facility] NBR [id number] Date(s): 12/04/22 - 12/04/22 [facility] Ambulatory Clinics [address] [place] [address]- [place] Encounter Diagnosis Encounter for screening for COVID-19(Discharge Diagnosis) - 12/04/22 Upper respiratory infection with cough and congestion(Discharge Diagnosis) - 12/04/22 Discharge Disposition: Home or Self Care Attending Physician: Josef Dean. PA Allergies, Adverse Reactions, Alerts Substance Reaction Severity Status nitrofurantoin Eruption Unknown Active Macrobid Moderate Active Assessment and Plan Future Appointments Future Scheduled Tests Laboratory* Comprehensive Metabolic Panel 09/26/22 * TSH w/ Rflx to Free T4 09/26/22 Radiology* US Abdomen Limited 11/21/22 * US Abdomen Limited 11/14/22 Functional Status 12/04/22 Other exposure to Infectious Disease Non e Immunizations Given and Recorded Vaccine Date Status Refusal Reason BCG 1 05/16/21 Recorded BCG 2 05/16/20 Recorded influenza virus vaccine, inactivated 3 09/17/16 Re corded influenza virus vaccine, inactivated 4 07/26/15 Re corded tetanus/diphth/pertuss (Tdap) adult/adol 5 05/19/15 Recorded 1Result Comment: Unit: Unknown Yarding Supervisor: [employer] 2Result Comment: Unit: Unknown Yarding Supervisor: Sanofi Pasteur 3Result Comment: Unit: Unknown Yarding Supervisor: GlaxoSmithKline 4Result Comment: Yarding Supervisor: [employer] 5Result Comment: Yarding Supervisor: Sanofi Pasteur Medications FLUoxetine 20 mg oral tablet 40 mg = 2 tab, Oral, Daily, # 180 tab, 3 Refill(s), Pharmacy: [id number] Start Date: 09/26/22 Stop Date: 09/21/23 Status: Ordered ibuprofen 800 mg oral tablet TID, 1 Unknown, 0 Refill(s) Start Date: 09/25/22 Status: Ordered ketorolac 10 mg oral tablet 10 mg = 1 tab, Oral, every 6 hr, PRN as needed for pain, not to exceed 40 mg/day and 5 days duration for all dose forms, # 10 tab, 0 Refill(s), Pharmacy: [id number], 167.64, cm, 11/24/22 4:40:00 EST, Height/Length Dosing, 95.6, kg, 11/24/22 4:40... Start Date: 11/24/22 Status: Ordered Mirena 0 Refill(s) Start Date: 09/25/22 Status: Ordered Trulicity Pen 1.5 mg/0.5 mL subcutaneous solution 1.5 mg =, Subcutaneous, every week, rotate injection sites, # 4 EA, 3 Refill(s), Pharmacy: [id number] Start Date: 10/17/22 Stop Date: 02/14/23 [...] Unknown Date Results Laboratory List Name Date SARS-CoV-2 (Covid-19) AG (Ellen) POCT 12/04/22 Most recent to oldest [Reference Range]: 1 SARS-CoV or CoV-2 (COVID-19) Ag (Ellen) [Negative] Negative (12/04/22 10:31 AM) Employed in healthcare? Unknown *NA* (12/04/22 10:31 AM) Symptomatic as defined by CDC? Unknown *NA* (12/04/22 10:31 AM) Date of onset (Lab) Unknown *NA* (12/04/22 10:31 AM) Hospitalized due to COVID-19? Unknown *NA* (12/04/22 10:31 AM) In ICU? Unknown *NA* (12/04/22 10:31 AM) Group care resident? Unknown *NA* (12/04/22 10:31 AM) status? Unknown *NA* (12/04/22 10:31 AM) Vital Signs Most recent to oldest [Reference Range]: 1 Temperature Tympanic [36.6-37.9 Deg C] 3 6.4 Deg C *LOW* (12/04/22 10:37 AM) Peripheral Pulse Rate [60-100 bpm] 90 bp m (12/04/22 10:37 AM) Blood Pressure [90-140/60-90 mmHg] 125/7 8mmHg (12/04/22 10:37 AM) Weight 95.25 kg (12/04/22 10:37 AM) Weight Measured (lbs) 209.99 lb (12/04/22 10:37 AM) Height 167.64 cm (12/04/22 10:37 AM) Height/Length Measured (inches) 66 inch (12/04/22 10:37 AM) BSA Measured 2.11 m2 (12/04/22 10:37 AM) Body Mass Index 33.89 kg/m2 (12/04/22 10:37 AM) Social History Social History Type Response Tobacco Never tobacco user T obacco Use:. Sex Hospital Discharge Instructions Patient Education 12/04/2022 10:06:29 Upper Respiratory Infection, Adult, Uyyj-xt-Smhu Upper Respiratory Infection, Adult An upper respiratory infection (URI) affects the nose, throat, and upper air passages. URIs are caused by germs (viruses). The most common type of URI is often called the common cold. Medicines cannot cure URIs, but you can do things at home to relieve your symptoms. URIs usually get better within 7???10 days. Follow these instructions at home: Activity ??? Rest as needed. ??? If you have a fever, stay home from work or school until your fever is gone, or until your doctor says you may return to work or school. ??? You should stay home until you cannot spread the infection anymore (you are not contagious). ??? Your doctor may have you wear a face mask so you have less risk of spreading the infection. Relieving symptoms ??? Gargle with a salt-water mixture 3???4 times a day or as needed. To make a salt-water mixture, completely dissolve ?1 tsp of salt in 1 cup of warm water. ??? Use a cool-mist humidifier to add moisture to the air. This can help you breathe more easily. Eating and drinking ??? Drink enough fluid to keep your pee (urine) pale yellow. ??? Eat soups and other clear broths. General instructions ??? Take gkwu-ogj-iouoazb and prescription medicines only as told by your doctor. These include cold medicines, fever reducers, and cough suppressants. ??? Do not use any products that contain nicotine or tobacco. These include cigarettes and e-cigarettes. If you need help quitting, ask your doctor. ??? Avoid being where people are smoking (avoid secondhand smoke). ??? Make sure you get regular shots and get the flu shot every year. ??? Keep all follow-up visits as told by your doctor. This is important. How to avoid spreading infection to others ??? Wash your hands often with soap and water. If you do not have soap and water, use hand double end production grinder. ??? Avoid touching your mouth, face, eyes, or nose. ??? Cough or sneeze into a tissue or your sleeve or elbow. Do not cough or sneeze into your hand orinto the air. Contact a doctor if: ??? You are getting worse, not better. ??? You have any of these: ??? A fever. ??? Chills. ??? Brown or red mucus in your nose. ??? Yellow or brown fluid (discharge)coming from your nose. ??? Pain in your face, especially when you bend forward. ??? Swollen neck glands. ??? Pain with swallowing. ??? White areas in the back of your throat. Get help right away if: ??? You have shortness of breath that gets worse. ??? You have very bad or constant: ??? Headache. ??? Ear pain. ??? Pain in your forehead, behind your eyes, and over your cheekbones (sinus pain). ??? Chest pain. ??? You have long-lasting (chronic) lung disease along with any of these: ??? Wheezing. ??? Long-lasting cough. ??? Coughing up blood. ??? A change in your usual mucus. ??? You have a stiff neck. ??? You have changes in your: ??? Vision. ??? Hearing. ??? Thinking. ??? Mood. Summary ??? An upper respiratory infection (URI) is caused by a germ called a virus. The most common type of URI is often called the common cold. ??? URIs usually get better within 7???10 days. ??? Take nhzs-kvd-wesegwq and prescription medicines only as told by your doctor. This information is not intended to replace advice given to you by your health care provider. Make sure you discuss any questions you have with your health care provider. Document Revised: 06/21/2021 Document Reviewed: 06/21/2021 [employer] Patient Education ?? 2021 [employer] Physician Outpatient Note * Josef Dean. JAVED: PERFORM Event Display: Office Clinic Note Physician Authored Date: [id number] FEDERICO NIETO :1985 Age:37 years Sex:Female Visit Date:12/04/2022 Primary Care Physician: Dede Soto APRN Chief Complaint pt reports sore throat, chest discomfort feels full, cough symptoms started friday History of Present Illness Started 3 days ago sore throat and nasal congestion cough, congestion.?? No body aches, fever, chills. ??Has felt more tired. ??No known exposures.?? Negative testing for COVID and flu at home. Physical Exam Vitals & Measurements T:??36.4?C ??(Tympanic)?? HR:??90??(Peripheral)?? BP:??125/78?? SpO2:??98%?? HT:??167.64??cm?? WT:??95.25??kg?? BMI:??33.89?? Pain Score:??3?? BSA:??2.11?? General: Alert and oriented, well nourished, no acute distress. Eye:??Pupils are reactive, conjunctiva clear. HENT: Normocephalic, clear tympanic membranes, throat clear no exudate and uvula is midline Neck: Supple, non-tender, no lymphadenopathy Lungs: Clear to auscultation and percussion, non-labored respiration. Heart: Normal rate, regular rhythm, no murmur, gallop or edema. Abdomen: Soft, non-tender, non-distended, no masses, no CVA tenderness. Musculoskeletal: Normal range of motion and strength, no tenderness or swelling. Skin: Skin is warm, dry, no rashes or lesions in examined areas. Neurologic: Awake, alert and oriented X3, normal cognition and interaction. Psychiatric: Cooperative, appropriate mood and affect. Assessment/Plan 1.??Upper respiratory infection with cough and congestion??J06.9 Short duration typical viral progression. ??Recommend follow-up if not improving. ??Treat symptomatically. ?? Encounter for screening for COVID-19??Z11.52 Ordered: SARS-CoV-2 (COVID-19) Ag POC (RE), 12/04/22 10:12:00 EST, Encounter for screening for COVID-19, 12/04/22 10:12:00 EST ?? Patient Instructions Ujxy-sok-fhkyyqo medications as needed. ??Recheck if not improving in 5 to 7 days. Patient Education Upper Respiratory Infection, Adult, Wlup-ro-Oqvb Problem List/Past Medical History Ongoing Acne Acute [...] (esophagogastroduodenoscopy) gastric outlet reduction (09/02/2013)???Colonoscopy???History of surgery Medications FLUoxetine 20 mg oral tablet, 40 mg= 2 tab, Oral, Daily, 3 refills ibuprofen 800 mg oral tablet, TID ketorolac 10 mg oral tablet, 10 mg= 1 tab, Oral, every 6 hr, PRN Mirena Trulicity Pen 1.5 mg/0.5 mL subcutaneous solution, 1.5 mg, Subcutaneous, every week, 3 refills Allergies Macrobid nitrofurantoin??(Eruption) Social History Alcohol Current, 1-2 times per month Electronic Cigarette/Vaping Electronic Cigarette Use: Never. Tobacco Never tobacco user Tobacco Use:. Family History Diabetes mellitus: Mother. Immunizations Vaccine Date Status BCG 05/16/2021 Recorded Comments : Unit: Unknown Yarding Supervisor: [employer] BCG 05/16/2020 Recorded Comments : Unit: Unknown Yarding Supervisor: Sanofi Pasteur influenza virus vaccine, inactivated 09/17/2016 Recorded Comments : Unit: Unknown Yarding Supervisor: GlaxoSmithKline influenza virus vaccine, inactivated 07/26/2015 Recorded Comments : Yarding Supervisor: GlaxoSmithKline tetanus/diphth/pertuss (Tdap) adult/adol 05/19/2015 Recorded Comments : Yarding Supervisor: Sanofi Pasteur Electronically Signed on 12/04/22 11:08 AM Josef BURT Outpatient Summary note * Josef Dean. PA: PERFORM Event Display: Ambulatory Patient Summary Authored Date: [id number] FEDERICO NIETO :1985 Age:37 years Sex:Female Visit Date:12/04/2022 Primary Care Physician: Dede Soto APRN Ambulatory Visit Instructions We would like to thank you for allowing us to assist you with your healthcare needs. The following includes patient education materials and information regarding your injury/illness. After you leave the office, you may get your health information including your test results, physician notes and discharge information by accessing your Patient Portal. If you do not have a patient portal account set up, please contact __. Your Next Steps Instructions From Your Care Team Ecwu-wmm-yomwelo medications as needed. ??Recheck if not improving in 5 to 7 days. Scheduled Future Appointments Friday 1:00 PM EST ?? Where: [facility] OR Status: Confirmed Medications What How Much When Instructions Unchanged dulaglutide (Trulicity Pen 1.5 mg/ 0.5 mL subcutaneous solution) 1.5 Milligrams Subcutaneous (under the skin) Every week Duration: 30 Days rotate injection sites ?? Unchanged FLUoxetine (FLUoxetine 20 mg oral tablet) 2 tab Oral (given by mouth) Every day Duration: 90 Days Unchanged ibuprofen (ibuprofen 800 mg oral tablet) 3 times a day 1 Unknown ?? Unchanged ketorolac (ketorolac 10 mg oral tablet) 1 tab Oral (given by mouth) Every 6 hours as needed for as needed for pain not to exceed 40 mg/ day and 5 days duration for all dose forms ?? Unchanged levonorgestrel (Mirena) Your Summary Your Diagnosis Upper respiratory infection with cough and congestion Encounter for screening for COVID-19 Tests Performed/Pending SARS-CoV-2 (Covid-19) AG (Ellen) POCT Your Care Team Attending Physician - Josef Dean. PA Primary Care Physician - Dede Soto APRN Allergies Macrobid nitrofurantoin??(Eruption) Education Materials Upper Respiratory Infection, Adult An upper respiratory infection (URI) affects the nose, throat, and upper air passages. URIs are caused by germs (viruses). The most common type of URI is often called the common cold. Medicines cannot cure URIs, but you can do things at home to relieve your symptoms. URIs usually get better within 7???10 days. Follow these instructions at home: Activity ? Rest as needed. ? If you have a fever, stay home from work or school until your fever is gone, or until your doctor says you may return to work or school. ? You should stay home until you cannot spread the infection anymore (you are not contagious). ? Your doctor may have you wear a face mask so you have less risk of spreading the infection. Relieving symptoms ? Gargle with a salt-water mixture 3???4 times a day or as needed. To make a salt- water mixture, completely dissolve ?1 tsp of salt in 1 cup of warm water. ? Use a cool-mist humidifier to add moisture to the air. This can help you breathe more easily. Eating and drinking ? Drink enough fluid to keep your pee (urine) pale yellow. ? Eat soups and other clear broths. General instructions ? Take cwkb-frs-utyqpis and prescription medicines only as told by your doctor. These include cold medicines, fever reducers, and cough suppressants. ? Do not use any products that contain nicotine or tobacco. These include cigarettes and e-cigarettes. If you need help quitting, ask your doctor. ? Avoid being where people are smoking (avoid secondhand smoke). ? Make sure you get regular shots and get the flu shot every year. ? Keep all follow-up visits as told by your doctor. This is important. How to avoid spreading infection to others ? Wash your hands often with soap and water. If you do not have soap and water, use hand double end production grinder. ? Avoid touching your mouth, face, eyes, or nose. ? Cough or sneeze into a tissue or your sleeve or elbow. Do not cough or sneeze into your hand or into the air. Contact a doctor if: ? You are getting worse, not better. ? You have any of these: ? A fever. ? Chills. ? Brown or red mucus in your nose. ? Yellow or brown fluid (discharge)coming from your nose. ? Pain in your face, especially when you bend forward. ? Swollen neck glands. ? Pain with swallowing. ? White areas in the back of your throat. Get help right away if: ? You have shortness of breath that gets worse. ? You have very bad or constant: ? Headache. ? Ear pain. ? Pain in your forehead, behind your eyes, and over your cheekbones (sinus pain). ? Chest pain. ? You have long-lasting (chronic) lung disease along with any of these: ? Wheezing. ? Long-lasting cough. ? Coughing up blood. ? A change in your usual mucus. ? You have a stiff neck. ? You have changes in your: ? Vision. ? Hearing. ? Thinking. ? Mood. Summary ? An upper respiratory infection (URI) is caused by a germ called a virus. The most common type of URI is often called the common cold. ? URIs usually get better within 7???10 days. ? Take uumr-zza-imwsuns and prescription medicines only as told by your doctor. This information is not intended to replace advice given to you by your health care provider. Make sure you discuss any questions you have with your health care provider. Document Revised: 06/21/2021 Document Reviewed: 06/21/2021 Elsevier Patient Education ?? 2021 [employer] Inc. Electronically Signed on: 12/04/2022 11:08 ESTSigned by:REEMA Patient Care team information Personnel Name: Dede Soto APRN Address: Address: [address] [place] [address] [address] [place] [address]-
--- OUTSIDE RECORDS SUMMARY | 2023-01-31 14:58 | XMS_ITS | Continuity of Care Document ---
Author Name Unknown Organization [facility] Address [address] [place] [id number] Care Team Providers Care Marine Biologist Name Role Phone Dede Soto Primary Care Physician Encounter [facility] NBR [id number] Date(s): 12/20/22 - 12/20/[address] [address]- Discharge Disposition: Home or Self Care Attending Physician: Violet Paige MD Admitting Physician: Violet Paige MD Referring Physician: Violet Paige MD Allergies, Adverse Reactions, Alerts Substance Reaction Severity Status nitrofurantoin Rash Eruption Moderate Active Macrobid Rash Moderate Active Assessment and Plan Future Appointments Future Scheduled Tests Laboratory* Comprehensive Metabolic Panel 09/26/22 * TSH w/ Rflx to Free T4 09/26/22 Radiology* US Abdomen Limited 11/21/22 * US Abdomen Limited 11/14/22 Functional Status 12/20/22 Antiembolism Device Intermittent pneumat ic compression devices, knee high, bilat Other exposure to Infectious Disease Non e Immunizations Given and Recorded Vaccine Date Status Refusal Reason BCG 1 05/16/21 Recorded BCG 2 05/16/20 Recorded influenza virus vaccine, inactivated 3 09/17/16 Re corded influenza virus vaccine, inactivated 4 07/26/15 Re corded tetanus/diphth/pertuss (Tdap) adult/adol 5 05/19/15 Recorded 1Result Comment: Unit: Unknown Guard Rail Installer: [employer] 2Result Comment: Unit: Unknown Guard Rail Installer: Sanofi Pasteur 3Result Comment: Unit: Unknown Guard Rail Installer: Gl[employer] 4Result Comment: Guard Rail Installer: Gl[employer] 5Result Comment: Guard Rail Installer: Sanofi Pasteur Medications dulaglutide 1.5 mg/0.5 mL subcutaneous solution See Instructions, 1.0 ml Subcutaneous every week 30 days, use 2 injections of 0.5 ml each week, # 4mL, 3 Refill(s), Pharmacy: [facility], 168, cm, 12/13/22 17:32:00 EST, Height/Length Dosing, 93, kg, 12/13/22 17:32:00 EST, Weight Dosing Start Date: 12/19/22 Status: Ordered FLUoxetine 20 mg oral tablet 40 mg = 2 tab, Oral, Daily, # 180 tab, 3 Refill(s), Pharmacy: [facility] Start Date: 09/26/22 Stop Date: 09/21/23 Status: Ordered ibuprofen 800 mg oral tablet TID, 1 Unknown, 0 Refill(s) Start Date: 09/25/22 Status: Ordered ketorolac 10 mg oral tablet 10 mg = 1 tab, Oral, every 6 hr, PRN as needed for pain, not to exceed 40 mg/day and 5 days duration for all dose forms, # 10 tab, 0 Refill(s), Pharmacy: [facility], 167.64, cm, 11/24/22 4:40:00 EST, Height/Length Dosing, 95.6, kg, 11/24/22 4:40... Start Date: 11/24/22 Status: Ordered Mirena 0 Refill(s) Start Date: 09/25/22 Status: Ordered Problem List Condition Confirmation Course Effective Dates Status H ealth Status Informant Acne Confirmed Active Acute esophagitis Confirmed Active Anxiety Confirmed Active Chronic UTI Confirmed Active COVID 1 Confirmed 11/08/21 Active Diarrhea Confirmed Active Epigastric pain Confirmed Active Helicobacter-associa [...] disease Confirmed Active Weight loss Confirmed Active 1mild resp symptoms Procedures Procedure Date Related Diagnosis Body Site Status Cholecystectomy Laparoscopy 1 12/20/22 Completed EGD (esophagogastroduodenosc opy) gastric outlet reduction 09/01/13 Complet ed Colonoscopy 2 Completed History of surgery 3 Comp leted 1auto-populated from documented surgical case 2benign findings date 06/2019 3cyst removal on hand Unknown Date Vital Signs Most recent to oldest [Reference Range]: 1 2 3 Temperature Temporal Artery [36-38 Deg C] 36.9 Deg C (12/20/22 6:15 PM) 36.7 Deg C (12/20/22 5:04 PM) 36.4 Deg C (12/20/22 2:24 PM) Temperature Temporal Artery (DegF) [97.3-100 Deg F] 98.06 Deg F (12/20/22 5:04 PM) Peripheral Pulse Rate [60-100 bpm] 86 bpm (12/20/22 6:59 PM) 85 bpm (12/20/22 6:45 PM) 92 bpm (12/20/22 6:30 PM) Respiratory Rate [12-24 br/min] 16 br/min (12/20/22 2:24 PM) Blood Pressure [90-140/60-90 mmHg] 97/64mmHg (12/20/22 6:59 PM) 115/81mmHg (12/20/22 6:45 PM) 118/84mmHg (12/20/22 6:30 PM) Mean Arterial Pressure, Cuff [65-140 mmHg] 75 mmHg (12/20/22 6:59 PM) 92 mmHg (12/20/22 6:45 PM) 95 mmHg (12/20/22 6:30 PM) Mean Arterial Pressure Cuff 91 mmHg (12/20/22 6:00 PM) 92 mmHg (12/20/22 5:45 PM) 103 mmHg (12/20/22 5:41 PM) Weight 93.000 kg (12/13/22 5:24 PM) Weight Dosing 93.000 kg (12/13/22 5:24 PM) Height 168.000 cm (12/13/22 5:24 PM) Height/Length Dosing 168.000 cm (12/13/22 5:24 PM) Social History Social History Type Response Tobacco Never tobacco user T obacco Use:. Sex Patient Care team information Care Team Personnel Name: Dede Soto APRN Position: Physician Member Role: Primary Care Physician Address: Address: [address] [place] [address] [address] [place], [place] [address] Care Team Related Persons Name: BUZZ ENGEL Address: Home [address] [place] [address] [place] Address: Mailing [address] [place], [place] [id number] Name: NEY NIETO
--- OUTSIDE RECORDS SUMMARY | 2023-01-31 14:58 | XMS_ITS | Continuity of Care Document ---
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 Name Role Phone Dede Soto Primary Care Physician Encounter [facility] NBR [id number] Date(s): 01/03/23 - 01/03/23 [facility] Ambulatory [facility] [address] [place] [address]- Discharge Disposition: Home or Self Care Attending Physician: Violet Paige MD Allergies, Adverse Reactions, Alerts Substance Reaction Severity Status nitrofurantoin Rash Eruption Moderate Active Macrobid Rash Moderate Active Assessment and Plan Future Scheduled Tests Laboratory* Comprehensive Metabolic Panel 09/26/22 * TSH w/ Rflx to Free T4 09/26/22 Radiology* US Abdomen Limited 11/21/22 * US Abdomen Limited 11/14/22 Functional Status 01/03/23 Recent Travel History No recent travel Other exposure to Infectious Disease Non e Immunizations Given and Recorded Vaccine Date Status Refusal Reason BCG 1 05/16/21 Recorded BCG 2 05/16/20 Recorded influenza virus vaccine, inactivated 3 09/17/16 Re corded influenza virus vaccine, inactivated 4 07/26/15 Re corded tetanus/diphth/pertuss (Tdap) adult/adol 5 05/19/15 Recorded 1Result Comment: Unit: Unknown Ammonia Solution Preparer: [employer] 2Result Comment: Unit: Unknown Ammonia Solution Preparer: Sanofi Paste[employer] 3Result Comment: Unit: Unknown Ammonia Solution Preparer: [employer] 4Result Comment: Ammonia Solution Preparer: [employer] 5Result Comment: Ammonia Solution Preparer: Sanofi Pasteur Medications dulaglutide 1.5 mg/0.5 mL subcutaneous solution See Instructions, 1.0 ml Subcutaneous every week 30 days, use 2 injections of 0.5 ml each week, # 4mL, 3 Refill(s), Pharmacy: [id number], 168, cm, 12/13/22 17:32:00 EST, Height/Length Dosing, 93, kg, 12/13/22 17:32:00 EST, Weight Dosing Start Date: 12/19/22 Status: Ordered FLUoxetine 20 mg oral tablet 40 mg = 2 tab, Oral, Daily, # 180 tab, 3 Refill(s), Pharmacy: [id number] Start Date: 09/26/22 Stop Date: 09/21/23 Status: Ordered ibuprofen 800 mg oral tablet TID, 1 Unknown, 0 Refill(s) Start Date: 09/25/22 Status: Ordered ketorolac 10 mg oral tablet 10 mg = 1 tab, Oral, every 6 hr, PRN as needed for pain, not to exceed 40 mg/day and 5 days duration for all dose forms, # 10 tab, 0 Refill(s), Pharmacy: [id number], 167.64, cm, 11/24/22 4:40:00 EST, Height/Length Dosing, 95.6, kg, 11/24/22 4:40... Start Date: 11/24/22 Status: Ordered Mirena 0 Refill(s) Start Date: 09/25/22 Status: Ordered Trulicity Pen 3 mg/0.5 mL subcutaneous solution 3 mg = 0.5 mL, Subcutaneous, every week, rotate injection sites, # 2 mL, 0 Refill(s) Start Date: 01/03/23 Status: Ordered Problem List Condition Confirmation Course [...] recent to oldest [Reference Range]: 1 Temperature Temporal Artery [36-38 Deg C ] 35.6 Deg C *LOW* (01/03/23 9:27 AM) Apical Heart Rate [60-100 bpm] 82 bpm (01/03/23 9:27 AM) Blood Pressure [90-140/60-90 mmHg] 130/7 0mmHg (01/03/23 9:27 AM) Weight 93.4 kg (01/03/23 9:27 AM) Weight Measured (lbs) 205.912 lb (01/03/23 9:27 AM) [place] Body Weight Calculated 59.3 kg (01/03/23 9:27 AM) Height 167.64 cm (01/03/23 9:27 AM) Height/Length Measured (inches) 66 inch (01/03/23 9:27 AM) BSA Measured 2.09 m2 (01/03/23 9:27 AM) Body Mass Index 33.23 kg/m2 (01/03/23 9:27 AM) Social History Social History Type Response Tobacco Never tobacco user T obacco Use:. Sex Patient Care team information Care Team Personnel Name: Dede Soto APRN Position: Physician Member Role: Primary Care Physician Address: Address: [address] [place] [address] [address] Care Team Related Persons Name: BUZZ ENGEL Address: Home [address] [place], [place] [phone] [facility] Address: Mailing [address] [place], [place] [phone] Name: NEY NIETO
--- OUTSIDE RECORDS SUMMARY | 2023-01-31 14:58 | XMS_ITS | Continuity of Care Document ---
Author Name Unknown Organization [facility] Ambulatory Clinics Address [address] [place] [address] Care Team Providers Care Relationship Executive Name Role Phone Dede Soto Primary Care Physician Encounter [facility] NBR [id number] Date(s): 11/21/22 - 11/21/22 [facility] Ambulatory Clinics [address] [place] [address]- [place] Encounter Diagnosis RUQ pain(Discharge Diagnosis) - 11/21/22 Discharge Disposition: Home or Self Care Attending Physician: Violet Paige MD Allergies, Adverse Reactions, Alerts Substance Reaction Severity Status nitrofurantoin Eruption Unknown Active Macrobid Moderate Active Assessment and Plan Future Scheduled Tests Laboratory* Comprehensive Metabolic Panel 09/26/22 * TSH w/ Rflx to Free T4 09/26/22 Radiology* US Abdomen Limited 11/21/22 * US Abdomen Limited 11/14/22 Functional Status 11/21/22 Recent Travel History No recent travel Other exposure to Infectious Disease Non e Immunizations Given and Recorded Vaccine Date Status Refusal Reason BCG 1 05/16/21 Recorded BCG 2 05/16/20 Recorded influenza virus vaccine, inactivated 3 09/17/16 Re corded influenza virus vaccine, inactivated 4 07/26/15 Re corded tetanus/diphth/pertuss (Tdap) adult/adol 5 05/19/15 Recorded 1Result Comment: Unit: Unknown Custom Harvester: [employer] 2Result Comment: Unit: Unknown Custom Harvester: Sanofi Pasteur 3Result Comment: Unit: Unknown Custom Harvester: [employer] 4Result Comment: Custom Harvester: [employer] 5Result Comment: Custom Harvester: Sanofi Pasteur Medications FLUoxetine 20 mg oral tablet 40 mg = 2 tab, Oral, Daily, # 180 tab, 3 Refill(s), Pharmacy: [id number] Start Date: 09/26/22 Stop Date: 09/21/23 Status: Ordered ibuprofen 800 mg oral tablet TID, 1 Unknown, 0 Refill(s) Start Date: 09/25/22 Status: Ordered Mirena 0 Refill(s) Start Date: 09/25/22 Status: Ordered Trulicity Pen 1.5 mg/0.5 mL subcutaneous solution 1.5 mg =, Subcutaneous, every week, rotate injection sites, # 4 EA, 3 Refill(s), Pharmacy: [id number] Start Date: 10/17/22 Stop Date: 02/14/23 [...] EGD (esophagogastroduodenosc opy) gastric outlet reduction 09/01/13 [facility] ed Colonoscopy 1 Completed History of surgery 2 Comp leted 1benign findings date 06/2019 2cyst removal on hand Unknown Date Vital Signs Most recent to oldest [Reference Range]: 1 Temperature Temporal Artery [36-38 Deg C ] 35.7 Deg C *LOW* (11/21/22 4:24 PM) Apical Heart Rate [60-100 bpm] 84 bpm (11/21/22 4:24 PM) Blood Pressure [90-140/60-90 mmHg] 118/7 8mmHg (11/21/22 4:24 PM) Weight 95.6 kg (11/21/22 4:24 PM) Weight Measured (lbs) 210.762 lb (11/21/22 4:24 PM) [place] Body Weight Calculated 59.3 kg (11/21/22 4:24 PM) Height 167.64 cm (11/21/22 4:24 PM) Height/Length Measured (inches) 66 inch (11/21/22 4:24 PM) BSA Measured 2.11 m2 (11/21/22 4:24 PM) Body Mass Index 34.02 kg/m2 (11/21/22 4:24 PM) Social History Social History Type Response Tobacco Never tobacco user T obacco Use:. Sex Patient Care team information Personnel Name: Dede Soto APRN Address: Address: [address] [place] [address] [place] [address]
--- OUTSIDE RECORDS SUMMARY | 2023-01-31 14:59 | XMS_ITS ---
Author Name Francesco Crowder Address [address], [place] [id number] [facility] Address [address], [place] [id number] Care Team Providers Care Offset Platemaker Name Role Phone Francesco Crowder Unavailable [phone] PROBLEMS Type Condition ICD9-CM Code [id number] Code Onset Dates Condition Status SNOMED Code Problem Retention of urine, unspecified 788.20 Active 555339757 Problem Mixed anxiety and depressive disorder F41.8 Active 081766464 Problem Nausea 787.03 Active 256410968 Problem URIN TRACT INFECTION NOS 599.0 Active 72842650 Problem Weight Loss 783.21 Active 64668217 Problem Anorexia 783.0 Active 46798721 Problem Epigastric abdominal pain 789.06 Active 98370307 Problem Nausea vomiting and diarrhea 787.91 Active 36885956 Problem Gastritis, Helicobacter pylori 041.86 Active 82433545 Problem Recurrent UTI N39.0 Active 145565852 Problem 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 Active 395642870 Problem IUD (intrauterine device) in place Z97.5 Active 439447685 Problem Acute esophagitis K20.90 Active 663959 006 Problem Acne, unspecified acne type L70.9 Active 61794341 Problem Urinary retention with incomplete bladder emptying R33.9 Active 235482503 Problem Gastropathy 537.9 Active 22887400 Problem Major depressive disorder, single episode, unspecified F32.9 Active 74166064 Problem depression, condition O90.6 Active Problem Irritable bowel syndrome with diarrhea K58.0 Active 335948029 Problem Anxiety F41.9 Active 35574521 Problem Reactive depression F32.9 Active ALLERGIES Substance Reaction Event Type Date Status Macrobid rash Drug Allergy 09 Jun, 2022 Active ENCOUNTERS Encounter Location Date Diagnosis [address] [place] [id number] 09 Jun, 2022 Dysuria R30.0 ; Vaginal discharge N89.8 ; Encounter for screening for malignant neoplasm of cervix Z12.4 ; Encounter for screening for infections with a predominantly sexual mode of transmission Z11.3 ; Pelvic pain R10.2 ; Urinary retention with incomplete bladder emptying R33.9 ; IUD (intrauterine device) in place Z97.5 and 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 [facility] [address] [place] [address] [id number] Jun, Major depressive disorder, single episode, unspecified F32.9 [facility] [address] [place] [address] [id number] May, [facility] [address] [place] [address] [id number] May, [facility] [address] [place] [address] [id number] May, Major depressive disorder, single episode, unspecified F32.9 ; Anxiety F41.9 and Atypical chest pain R07.[address] [id number] Apr, [facility] [address] [place] [address] [id number] Apr, [facility] [address] [place] [address] [id number] February, [facility] [address] [place] [address] [id number] February, [facility] [address] [place] [address] [id number] Jan, [facility] [address] [place] [address] [id number] 15 Jan, 2022 Palpitations R00.2 ; Dizziness R42 and Encounter for screening mammogram for malignant neoplasm of breast Z12.31 [facility] [address] [place] [address] [id number] Jan, [facility] [address] [place] [address] [id number] Jan, [address] [id number] Dec, [address] [id number] Dec, [address] [id number] Dec, [address] [id number] Oct, [facility] [address] [id number] Oct, SARS-CoV-2 positive U07.[address] [id number] Oct, [address] [id number] Aug, [address] [id number] Aug, [address] [id number] Aug, Dysuria R30.0 and IUD surveillance Z30.431 [facility] [address] [id number] Jul, Breast cancer screening, high risk patient Z12.39 [facility] [address] [id number] Jul, [facility] [address] [id number] Jul, [address] [id number] Jun, [facility] [address] [id number] Jun, [address] [id number] Jun, Encounter for IUD removal and reinsertion Z30.433 and Encounter for screening for malignant neoplasm of cervix Z12.4 [facility] [address] [id number] Jun, Mastodynia N64.4 ; Family history of breast cancer in female Z80.3 and Breast cancer screening, high risk patient Z12.[address] [id number] 09 Jun, [address] [id number] 09 Jun, [address] [id number] 09 Jun, [address] [id number] 10 May, 2021 [facility] Occupational [facility] Department [address] [place] [address] [id number] 24 Apr, 2021 [facility] [address] [place] [address] [id number] Apr, Encounter for pre-employment examination Z02.[address] [id number] 15 Apr, 2021 [facility] [address] [place] [address] [id number] 14 Apr, 2021 Encounter for screening laboratory testing for COVID-19 virus Z20.828 and Viral upper respiratory tract infection J06.[address] [id number] 14 Apr, [address] [id number] Apr, [facility] [address] [id number] 24 Mar, 2021 Mastodynia N64.[address] [id number] 15 Feb, 2021 [facility] [address] [place] [address] [id number] 11 Feb, 2021 Breast lump or mass N63.0 ; Hair loss L65.9 ; Reactive depression F32.9 and Parent/child conflict Z62.[address] [id number] Jan, Encounter for general adult medical examination without abnormal findings Z00.00 [facility] [address] [place] [address] [id number] Jan, Encounter for general adult medical examination without abnormal findings Z00.00 ; Acute esophagitis K20.90 ; Anxiety F41.9 and Adult acne L70.[address] [id number] Aug, [address] [id number] Jul, Vaginal discharge N89.8 and Dysuria R30.[address] [id number] May, [address] [id number] Apr, Immunity to varicella determined by serologic test Z01.[address] [id number] Apr, [address] [id number] Apr, [address] [id number] Apr, High rubella virus antibody titer R76.0 and Rubella immune Z78.[address] [id number] Dec, [address] [id number] Dec, Colicky RUQ abdominal pain R10.[address] [id number] Dec, [address] [id number] Jul, [address] [id number] Jul, Cervicalgia M54.2 and Strain of right trapezius muscle, initial encounter S46.811A [facility] [address] [place] [address] [id number] Jun, Nausea R11.[address] [facility] [address] [place] [address] [id number] Jun, [facility] [address] [place] [address] [id number] Jun, [facility] [address] [place] [address] [id number] Jun, [facility] [address] [place] [address] [id number] Jun, Nausea R11.0 [facility] Op [address] [place], [place] [id number] Jun, Irritable bowel syndrome with diarrhea K58.0 ; Lower abdominal pain R10.30 and Abdominal bloating R14.0 [facility] [address] [id number] May, Nausea R11.0 [facility] [address] [id number] May, Lower abdominal pain R10.30 ; Irritable bowel syndrome with diarrhea K58.0 ; Nausea R11.0 and Abdominal bloating R14.0 [facility] [address] [place] [address] [id number] Apr, Epigastric pain R10.13 and Diarrhea, unspecified R19.7 [facility] [address] [place] [address] [id number] Mar, [facility] [address] [place] [address] [id number] Mar, Bowel habit changes R19.4 and Lower abdominal pain R10.30 [facility] [address] [place] [address] [id number] Mar, [facility] [address] [place] [address] [id number] Jan, Upper respiratory tract infection, unspecified type J06.9 [facility] [address] [place] [address] [id number] Oct, Sore throat J02.9 ; Cough R05 ; Fever, unspecified fever cause R50.9 and Left otitis media, unspecified otitis media type H66.92 [facility] [address] [facility] [address] [place] [address] [id number] Nov, Dysuria R30.0 and Unspecified condition associated with female genital organs and menstrual cycle N94.9 [facility] [address] [place] [address] [id number] Aug, Encounter for immunization Z23 and School physical exam Z02.0 [facility] [address] [place], [place] [id number] Aug, [facility] [address] [place] [address] [id number] Aug, Francesco Crowder MD [address] [place] [address] [id number] Sep, Candidiasis, unspecified B37.9 Francesco Crowder MD [address] [place] [address] [id number] Sep, Encounter for routine follow-up Z39.2 ; 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 ; Recurrent UTI N39.0 ; Encounter for screening for malignant neoplasm of cervix Z12.4 and depression, condition O90.6 Francesco Crowder MD [address] [place] [address] [id number] Jul, Encounter for routine follow-up Z39.2 and Dysuria R30.0 Francesco Crowder MD [address] [place] [address] [id number] Jul, Encounter for supervision of other normal , third trimester Z34.83 and 39 weeks gestation of Z3A.39 Francesco Crowder MD [address] [place] [address] [id number] Jul, Vaginal irritation N89.8 Francesco Crowder MD [address] [place] [address] [id number] Jul, Encounter for supervision of other normal , third trimester Z34.83 and 38 weeks gestation of Z3A.38 Francesco Crowder MD [address] [place] [address] [id number] Jun, Encounter for related examination in third trimester V22.1 and Flu vaccine need V04.81 Francesco Crowder MD [address] [place] [address] [id number] Jun, Encounter for related examination in third trimester V22.1 and Transverse or oblique presentation of fetus, antepartum 652.33 Francesco Crowder MD [address] [place] [address] [id number] Jun, Encounter for supervision of normal in third trimester V22.1 Francesco Crowder MD [address] [place] [address] [id number] Jun, Abdominal pain affecting , antepartum 646.83 ; Encounter for related examination in third trimester V22.1 ; SCREEN STREP B V28.6 and Transverse or oblique presentation of fetus, antepartum 652.33 Francesco Crowder MD [address] [place] [address] [id number] Jun, Encounter for related examination in third trimester V22.1 Francesco Crowder MD [address] [place], [place] [id number] May, Encounter for related examination in third trimester V22.1 and Traumatic injury during in third trimester 648.93 Francesco Crowder MD [address] [place], [place] [id number] May, Encounter for related examination in third trimester V22.1 and Herpes genitalia 054.10 Francesco Crowder MD [address] [place], [place] [id number] May, Encounter for related examination in third trimester V22.1 ; Acute upper respiratory infection 465.9 and Anemia affecting in third trimester 648.23 Francesco Crowder MD [address] [place], [place] [id number] Apr, Encounter for supervision of normal in second trimester V22.1 ; Need for phgmwnnwbs-xjxocdq-fugeo ssis (Tdap) vaccine V06.1 and Anemia affecting in third trimester 648.23 Francesco Crowder MD [address] [place], [place] [id number] Mar, Encounter for related examination in second trimester V22.1 and Uterine size date discrepancy 649.63 Francesco Crowder MD [address] [place], [place] [id number] February, Encounter for related examination in second trimester V22.1 ; Depression 311 and Tendonitis 726.90 Francesco Crowder MD [address] [place], [place] [id number] Jan, Encounter for related examination in second trimester V22.1 Francesco Crowder MD [address] [place], [place] [id number] Jan, Normal , repeat V22.1 Francesco Crowder MD [address] [place], [place] [id number] Dec, Normal V22.1 ; Goiter 240.9 ; Cervical cancer screening V76.2 and SCREEN FOR VENERAL DIS V74.5 [facility] [address] [facility] [address] [place], [place] [id number] Nov, Francesco Crowder MD [address] [place] [address] [id number] Nov, Francesco Crowder MD [address] [place], [place] [id number] Nov, Francesco Crowder MD [address] [place] [address] [id number] Oct, Heavy periods 626.2 ; Dyspareunia 625.0 and PRSC NTRUTR CNTRCPTV DVC V45.51 [facility] [address] [id number] Aug, [facility] [address] [id number] Aug, [facility] [address] [id number] Aug, [facility] [address] [id number] Aug, Gastritis, Helicobacter pylori 041.86 [facility] [address] [id number] 07 Aug, 2013 Epigastric abdominal pain 789.06 ; Nausea vomiting and diarrhea 787.91 ; Weight Loss 783.21 ; Gastropathy 537.9 and Esophagitis, acute 530.12 [facility] [address] [id number] Jul, [facility] [address] [id number] Jul, Epigastric abdominal pain 789.06 ; Nausea 787.03 ; Nausea vomiting and diarrhea 787.91 and Weight Loss 783.21 UNKNOWN 07 Jul, 2013 [facility] [address] [id number] Jun, [facility] [address] [id number] Jun, Nausea 787.03 ; Retention of urine, unspecified 788.20 and Anorexia 783.0 [facility] [address] [id number] Jun, [facility] [address] [id number] Jun, Retention of urine, unspecified 788.20 and URIN TRACT INFECTION NOS 599.0 [facility] [address] [id number] February, [facility] [address] [place], [place] [id number] Jul, [address] [place] [address] [id number] May, SPRAIN OF NECK 847.0 [facility] 600 [facility] [address] [place], [place] [id number] May, [address] [place], [place] [id number] May, Acute cervical sprain 847.0 [facility] [address] [place] [address] [id number] Sep, URIN TRACT INFECTION NOS 599.0 [facility] [address] [place] [address] [id number] Aug, [facility] [address] [place] [address] [id number] Aug, [facility] [address] [place] [address] [id number] Aug, Retention of urine, unspecified 788.20 and URIN TRACT INFECTION NOS 599.0 [facility] [address] [place] [address] [id number] Aug, URIN TRACT INFECTION NOS 599.0 [facility] [address] [place] [address] [id number] Aug, [address] [id number] May, [address] [id number] May, IMMUNIZATIONS Vaccine Route Administration Date Status PPD ID Intradermal May 16, 2021 Administered PPD ID Intradermal May 16, 2020 Administered JASMIN - Flu VACC 6 MONTHS > IM Intramuscular Sep 17 6 Administered JASMIN - Flu VACC 6 MONTHS > IM Intramuscular Jul 26 15 Administered Tdap - Adult IM Intramuscular May 19, 2015 Administer ed SOCIAL HISTORY Qualifiers Date Never Smoker REASON FOR REFERRAL FUNCTIONAL STATUS PLAN OF CARE Activity Details VITAL SIGNS Height 66 in 2022-07-05 Height 66 in 2022-05-28 Height 66 in 2022-02-08 Height 66 in 2021-08-28 Height 66 in 2021-07-17 Height 66 inches in 2021-07-17 Height 66 inches in 2021-05-09 Height 66 inches in 2021-04-19 Height 66 inches in 2021-03-06 Height 66 inches in 2021-01-30 Height 66 inches in 2020-08-24 Height 66 inches in 2020-05-16 Height 66 inches in 2020-01-04 Height 66 inches in 2019-08-09 Height 66 inches in 2019-06-02 Height 66 inches in 2019-04-15 Height 66 inches in 2019-02-10 Height 66 inches in 2017-11-21 Height 66 inches in 2016-12-02 Height 66 inches in 2016-09-17 Height 66 inches in 2015-09-29 Height 66 inches in 2015-08-14 Height 66 inches in 2015-04-21 Height 66 inches in 2014-12-28 Height N/A in 2013-11-19 Height N/A in 2013-09-17 Height N/A in 2013-08-13 Height 66 inches in 2013-07-08 Weight 223.8 lbs 2022-07-05 Weight 217 lb 6 oz lbs 2022-02-08 Weight 228 lbs 2021-08-28 Weight 224.09 lbs 2021-07-17 Weight 226.2 lbs 2021-07-17 Weight 232.2 lbs 2021-04-19 Weight 228.4 lbs 2021-03-06 Weight 223.0 lbs 2021-01-30 Weight 212 lbs 2020-08-24 Weight 214.4 lbs 2020-05-16 Weight 214.4 lbs 2020-01-04 Weight 208.2 lbs 2019-08-09 Weight 207.9 lbs 2019-06-02 Weight 208.0 lbs 2019-04-15 Weight 198 lb 6 oz lbs 2019-02-10 Weight 201.0 lbs 2017-11-21 Weight 208.8 lbs 2016-12-02 Weight 208.4 lbs 2016-09-17 Weight 203 lbs 2015-09-29 Weight 218 lbs 2015-08-09 Weight 216.0 lbs 2015-08-02 Weight 215.5 lbs 2015-07-26 Weight 213 lbs 2015-07-19 Weight 213 lbs 2015-07-14 Weight 213 lbs 2015-07-05 Weight 208 lbs 2015-06-16 Weight 212 lbs 2015-04-21 Weight 204 lbs 2015-03-24 Weight 198 lbs 2015-02-22 Weight 197 lbs 2015-01-25 Weight 200 lbs 2014-12-28 Weight 170 lbs 2013-11-19 Weight 168 lb 2 oz lbs 2013-09-17 Weight 164 lbs 2013-08-13 Weight 178.4 lbs 2013-07-08 Temperature 97.9 degrees Fahrenheit Temperature 96.3 degrees Fahrenheit Temperature 97.5 degrees Fahrenheit Temperature 97.6 degrees Fahrenheit Temperature 96.8 degrees Fahrenheit Temperature 96.9 degrees Fahrenheit Temperature Temporal:98.1 degrees Fahrenheit 2019-06-02 Temperature 97.8 degrees Fahrenheit Temperature Tympanic:97.4 degrees Fahrenheit 2019-02-10 Temperature 99.6 degrees Fahrenheit Temperature Tympanic:98.9 degrees Fahrenheit 2016-12-02 Temperature 97.5 degrees Fahrenheit Temperature 98.2 degrees Fahrenheit Heart Rate 94 /min 2022-05-28 Heart Rate 76 /min 2022-02-08 Heart Rate 67 /min 2021-07-17 Heart Rate 79 /min 2021-05-09 Heart Rate 84 /min 2021-04-19 Heart Rate 85 /min 2021-03-06 Heart Rate 78 /min 2021-01-30 Heart Rate 76 /min 2020-05-16 Heart Rate 79 /min 2020-01-04 Heart Rate 77 /min 2019-08-09 Heart Rate 64 /min 2019-06-02 Heart Rate 73 /min 2019-04-15 Heart Rate 84 /min 2019-02-10 Heart Rate 109 /min 2017-11-21 Heart Rate 72 /min 2016-09-17 Heart Rate 72 /min 2013-09-17 Heart Rate 76 /min 2013-08-13 Heart Rate 85 /min 2013-07-08 Oximetry 97 2022-05-28 Oximetry 97 2022-02-08 Oximetry 98 2021-07-17 Oximetry 99 2021-05-09 Oximetry 97 2021-04-19 Oximetry 97 2021-03-06 Oximetry 96 2021-01-30 Oximetry 96 2020-05-16 Oximetry 98 2020-01-04 Oximetry 98 2019-08-09 Oximetry 98 2019-06-02 Oximetry 98 2019-04-15 Oximetry 95 2017-11-21 Respiratory Rate 18 /min 2022-05-28 BMI 36.12 kg/m2 2022-07-05 BMI 35.08 kg/m2 2022-02-08 BMI 36.80 kg/m2 2021-08-28 BMI 36.17 kg/m2 2021-07-17 BMI 36.51 kg/m2 2021-07-17 BMI 37.47 kg/m2 2021-04-19 BMI 36.86 kg/m2 2021-03-06 BMI 35.99 kg/m2 2021-01-30 BMI 34.21 kg/m2 2020-08-24 BMI 34.60 kg/m2 2020-05-16 BMI 34.60 kg/m2 2020-01-04 BMI 33.60 kg/m2 2019-08-09 BMI 33.55 kg/m2 2019-06-02 BMI 33.57 kg/m2 2019-04-15 BMI 32.02 kg/m2 2019-02-10 BMI 32.44 kg/m2 2017-11-21 BMI 33.70 kg/m2 2016-12-02 BMI 33.63 kg/m2 2016-09-17 BMI 32.76 kg/m2 2015-09-29 BMI 34.21 kg/m2 2015-04-21 BMI 27.44 kg/m2 2013-11-19 BMI 27.13 kg/m2 2013-09-17 BMI 26.47 kg/m2 2013-08-13 BMI 28.79 kg/m2 2013-07-08 Blood pressure systolic 126 mm Hg Blood pressure diastolic 82 mm Hg 2022-06 MEDICATIONS Medication Instructions Dosage Frequency Start Date End Date Duration Status Sertraline HCl 50 MG Orally Once a day 1 tablet 24h Jan, 30 days Not-Gama g Accutane Oral daily 80 mg 24h Acti ve Mirena Active FLUoxetine HCl 20 MG Orally Once a day 1 capsule 24h Jun, 90 days Active PROCEDURES Procedure Date Ordered Result Body Site Tdap - Adult May 19, 2015 IMMUNIZATION ADMINISTRATION May 19, 2015 PIE March 04, 2012 IH URINALYSIS NONAUTO W/O SCOPE Aug 28, 2021 SUBSEQUENT CARE February 22, 2015 EGD WITH BIOPSYS Sep 02, 2013 URINALYSIS NONAUTO W/O SCOPE Dec 02, 2016 RAPID INFLUENZA TEST Nov 21, 2017 SUBSEQUENT CARE Jun 01, 2015 SUBSEQUENT CARE April 21, 2015 IUD REMOVAL Jul 17, 2021 URINALYSIS NONAUTO W/O SCOPE Jul 08, 2013 IMMUNIZATION ADMINISTRATION Sep 17, 2016 SUBSEQUENT CARE Jun 19, 2015 CARE VISIT Aug 14, 2015 RAPID STREP TEST CLIA Nov 21, 2017 COLONOSCOPY & COLD BIOPSY POLYPECTOMY Jul 16, 2019 SUBSEQUENT CARE Jul 19, 2015 ELECTROCARDIOGRAM COMP February 08, 2022 CYSTOURETHROSCOPY Oct 06, 2009 SUBSEQUENT CARE Jun 16, 2015 SUBSEQUENT CARE Aug 02, 2015 TB INTRADERMAL May 16, 2020 IUD INSERTION Jul 17, 2021 GLUCOSE; POST GLUCOSE DOSE May 19, 2015 URINALYSIS, DIPSTICK W/MICROSCOP Aug 14, 2015 SUBSEQUENT CARE March 24, 2015 JASMIN - Flu VACC 6 MONTHS > Jul 26, 2015 SUBSEQUENT CARE January 25, 2015 SUBSEQUENT CARE Jul 05, 2015 IMMUNIZATION ADMINISTRATION Jul 26, 2015 INITIAL CARE VISIT December 28, 2014 URINALYSIS NONAUTO W/O SCOPE Jul 05, 2022 SUBSEQUENT CARE Jul 26, 2015 CARE VISIT Sep 29, 2015 LNG-RELEASING IUC SYS 52MG 5 YR DUR Jul 17, 2021 SUBSEQUENT CARE Jul 14, 2015 ABY/WET [place] VAGINAL Jul 05, 2022 TB INTRADERMAL May 16, 2021 BLOOD COUNT HEMOGLOBIN May 19, 2015 SUBSEQUENT CARE Aug 09, 2015 JASMIN - Flu VACC 6 MONTHS > Sep 17, 2016 SUBSEQUENT CARE May 19, 2015 RESULTS Name Result Date Reference Range Pap Lb, rfx HPV all pth 2022-07-05 . Note: . Clinical history: DIAGNOSIS: Neg JA neg HR HPV Specimen adequacy: Additional comment: Recommendation: Performed by: Electronically signed by: Test ordered: Maturation index: Amended report: Addendum: QC reviewed by: Cytology history: Special procedure: QA comment: Diagnosis provided by: Source: Pathologist provided ICD9: Clinician provided ICD9: Interpretation LBP CPT Code Automation URINALYSIS, DIP ONLY 2022-07-05 CLARITY cloudy COLOR straw NITRITES negative REDUCING SUBSTANCES SPECIFIC GRAVITY 1.020 UROBILINOGEN 1+ BILIRUBIN 1+ BLOOD negative GLUCOSE negative KETONES small pH 6 PROTEIN trace LEUKOCYTES negative CHLAMYDIA/GONOCOCCUS, by PCR ([facility] Send Out) 2022-07-05 C. trachomatis by PCR Not detected N. gonorrhoeae by PCR Not detected Chlamydia trachomatis, TRICIA Neisseria gonorrhoeae, TRICIA MG MAMMOGRAPHY BILATERAL SCREENING 2022-05-28 CBC, WITH AUTO DIFF 2022-03-01 WBC WBC SUSPECT FLAGS RBC RBC SUSPECT FLAG HEMOGLOBIN HEMATOCRIT MCV MCH MCHC PLATELETS RDW PLT SUSPECT FLAG MPV NEUTROPHIL % LYMPHS % MONOCYTES % EOSINOPHILS % BASOPHILS % NEUTROPHILS # LYMPHOCYTES # MONOCYTES # EOSINOPHILS # BASOPHILS # MANUAL DIFFERENTIAL? PATH? PSR COMMENT SMEAR? SMEAR COMMENT SMEAR COMMENT LIPID PROFILE 2022-03-01 CHOLESTEROL TRIGLYCERIDES HDL CHOLESTEROL LDL (CALCULATED) LDL CHOLESTEROL RISK RATIO RISK RATIO INTERP COMPREHENSIVE METABOLIC PROFILE 2022-03-01 SODIUM POTASSIUM CHLORIDE CO2 CALCIUM GLUCOSE BLOOD UREA NITROGEN CREATININE eGFR Calculated Value TOTAL BILIRUBIN TOTAL PROTEIN ALBUMIN ALKALINE PHOSPHATASE ALT AST ANION GAP BUN/CREATININE RATIO OSMOLARITY GLOBULIN ALBUMIN/GLOBULIN RATIO TSH w/REFLEX TO FT4 2022-03-01 Thyroid Stimulating Hormone COVID 19 [facility] PCR (Cepheid) AUTHORIZED ONLY 2021-11-07 URINE DIP ([facility]) 2021-08-28 Color yellow Clarity cloudy Glucose neg Bilirubin neg Ketones neg Specific [place] 1.000 Blood about 50 PH 1.010 Protein trace Uro neg Nitrates positive Leukocytes neg CULTURE URINE 2021-08-28 INVITAE GENETIC TESTING 2021-07-31 INVITAE INVITAE GENETIC TESTING DATE SENT 07/31/2021 RESULT SEE SEPARATE REPORT Pap Lb, Ct-Ng, rfx HPV all 2021-07-17 . Chlamydia, Nuc. Acid Amp Gonococcus, Nuc. Acid Amp Note: . Clinical history: DIAGNOSIS: Specimen adequacy: Additional comment: Recommendation: Performed by: Electronically signed by: Test ordered: Maturation index: Amended report: Addendum: QC reviewed by: Cytology history: Special procedure: QA comment: Diagnosis provided by: Source: Pathologist provided ICD9: Clinician provided ICD9: Interpretation LBP CPT Code Automation MR BREAST BILAT W/WO CONTRAST 2021-08-14 COVID 19 (POS) [facility] Ag Card 2021-05-09 SARS-CoV-2 negative COVID 19 [facility] PCR (Cepheid) AUTHORIZED ONLY 2021-05-09 US BREAST RIGHT LIMITED 2021-03-08 TSH w/REFLEX TO FT4 2021-03-06 TSH 4.34 0.45-5.33 MG MAMMOGRAPHY BILATERAL DIAGNOSIS 2021-03-08 BASIC METABOLIC PROFILE 2021-02-06 SODIUM 135 134-143 POTASSIUM 3.8 3.5-5.1 CHLORIDE 99 98-111 CO2 26 22-32 CALCIUM 9.1 8.9-10.3 BUN 13 8-26 CREATININE 0.78 0.44-1.00 EGFR >60 EGFR CMT Multiply calculated EGFR by 1.025 for Afro-americans. A/GAP 10.0 3.0-12.0 OSMOLARITY 269 275-295 B/CR 16.7 8.0-20.0 CBC, WITH AUTO DIFF 2021-02-06 WBC 8.2 4.8-10.8 RBC 4.45 4.20-5.40 HGB 13.2 12.0-16.0 HCT 38.7 37.0-47.0 MCV 87.0 81.0-99.0 MCH 29.7 27.0-31.0 MCHC 34.1 32.0-37.0 RDW-CV 12.4 11.5-14.5 PLT 260 130-400 MPV 9.7 7.4-10.4 NE% 63.5 42.2-75.2 LY% 28.1 20.5-51.1 MO% 6.5 1.7-9.3 EO% 1.0 0.9-2.9 BA% 0.5 0.0-0.8 NE# 5.2 1.4-6.5 LY# 2.3 1.2-3.4 MO# 0.5 0.1-0.6 EO# 0.1 0.0-0.2 BA# 0.0 0.0-0.2 LIPID PROFILE 2021-02-06 CHOLESTEROL 206 129-209 TRIGLYCERIDES 117 10-150 HDL 48 40-80 LDL (CALCULATED) 135 RISK RATIO 4.3 RISK INTERP RISK MALE FEMALE 1/2 average 3.4 3.3 Average 5.0 4.4 2x Average 9.6 CULTURE URINE 2020-08-24 URINALYSIS, DIP ONLY 2020-08-24 CLARITY cloudy COLOR esperanza NITRITES negative REDUCING SUBSTANCES SPECIFIC GRAVITY 1.030 UROBILINOGEN 1+ BILIRUBIN 1+ BLOOD trace GLUCOSE negative KETONES small pH 5 PROTEIN trace LEUKOCYTES trace VARICELLA ZOSTER IGG AB (LR) 2020-05-25 VARICELLA ZOSTER IGG POSITIVE NEGATIV E VZG_TEXT An Equivocal result may occur when a specimen falls close to, but does not achieve, an interpretative threshold. They are statistically uninterpretable. These are repeated for validity and, if requir HEPATITIS B SURFACE ANTIGEN 2020-05-16 HEP B SURFACE AG NON-REACTIVE NON-REACTIV E HEP B SURFACE AG NON-REACTIVE NON-REACTIV E RUBELLA IGG ANTIBODY 2020-05-16 RUBELLA >500.0 >=10.0 RUB HEAD REFERENCE RANGE: (IU /mL) <5.0 : NON-IMMUNE 5.0 - 9.9 : MORALEZ ZONE >= 10.0 : IMMUNE CBC, WITH AUTO DIFF 2020-01-04 WBC 8.0 4.8-10.8 RBC 4.39 4.20-5.40 HGB 12.8 12.0-16.0 HCT 37.2 37.0-47.0 MCV 84.7 81.0-99.0 MCH 29.2 27.0-31.0 MCHC 34.4 32.0-37.0 RDW-CV 12.5 11.5-14.5 PLT 219 130-400 MPV 9.8 7.4-10.4 NE% 61.1 42.2-75.2 LY% 28.9 20.5-51.1 MO% 7.9 1.7-9.3 EO% 1.0 0.9-2.9 BA% 0.5 0.0-0.8 NE# 4.9 1.4-6.5 LY# 2.3 1.2-3.4 MO# 0.6 0.1-0.6 EO# 0.1 0.0-0.2 BA# 0.0 0.0-0.2 COMPREHENSIVE METABOLIC PROFILE 2020-01-04 SODIUM 137 136-145 POTASSIUM 3.9 3.5-5.1 CHLORIDE 105 98-111 CO2 25 22-32 CALCIUM 9.2 8.9-10.3 BUN 21 8-26 CREATININE 0.71 0.44-1.00 TOTAL BILIRUBIN 0.5 0.3-1.2 TOTAL PROTEIN 7.1 6.5-8.1 ALBUMIN 4.2 3.5-5.0 ALKALINE PHOS 46 32-92 AST 22 15-41 ALT 22 14-54 A/GAP 7.0 3.0-12.0 B/CR 29.6 8.0-20.0 OSMOLARITY 276 275-295 GLOBULIN 2.9 2.3-3.5 A/G 1.4 1.0-2.5 LIPASE 2020-01-04 LIPASE 29 18-51 XR CERVICAL 2 OR 3 VIEWS 2019-08-09 XR SHOULDER RIGHT 2019-08-09 CELIAC DISEASE COMPREHENSIVE ([id number]) 2019-07-16 Deamidated Gliadin Abs, IgA 2 0-19 Deamidated Gliadin Abs, IgG 2 0-19 t-Transglutaminase (tTG) IgA <2 0-3 t-Transglutaminase (tTG) IgG <2 0-5 Endomysial Antibody IgA Negative Nega tive Immunoglobulin A, Qn, Serum 179 87-352 US ABDOMINAL COMPLETE 2019-05-21 FECAL LEUKO-LACTOFERRIN 2019-04-15 FECAL LACTOFERRIN NEGATIVE NEGATIVE OVA AND PARASITE ROUTINE ([id number]) 2019-04-15 Ova + Parasite Exam Final report CULTURE STOOL-ENTERIC PATHOG EN SCREEN 2019-04-15 SCREEN HEADING ENTERIC PATHOGEN SCREEN SALMONELLA Not Detected NOT DETECTED SHIGELLA Not Detected NOT DETECTED CAMPYLOBACTER Not Detected NOT DETECTED SHIGA TOXIN ST1 Not Detected NOT DETECTED SHIGA TOXIN ST2 Not Detected NOT DETECTED YERSINIA ENTEROCOLIT Not Detected NOT DET ECTED VIBRIO Not Detected NOT DETECTED NOROVIRUS Not Detected NOT DETECTED ROTAVIRUS Not Detected NOT DETECTED Rapid Flu Result POSITIVE A RAPID STREP SCREEN RAPID STREP GROUP B NEGATIVE CULTURE URINE 2016-12-02 URINALYSIS, DIP ONLY 2016-12-02 CLARITY cloudy COLOR pink NITRITES positive REDUCING SUBSTANCES SPECIFIC GRAVITY 1.015 UROBILINOGEN 4 BILIRUBIN +++ BLOOD 250 GLUCOSE neg KETONES pH 5 PROTEIN trace LEUKOCYTES + Pap Lb, HPV-hr . Note: Clinical history: WNL DIAGNOSIS: NEG JA Specimen adequacy: Satisfactory Additional comment: Recommendation: Repeat 3 y Performed by: [facility] Electronically signed by: Test ordered: Maturation index: Amended report: Addendum: QC reviewed by: Cytology history: Special procedure: QA comment: Diagnosis provided by: Source: Pathologist provided ICD9: Clinician provided ICD9: Interpretation HPV, high-risk LBP CPT Code Automation HEMOGLOBIN/HEMATOCRIT 2015-08-11 HGB 11.3 12.0-16.0 HCT 34.1 37.0-47.0 GROUP-B STREP SCREEN - RAPID PCR 2015-07-14 Group B Strep by PCR NEGATIVE NEGATIV E CBC, WITH AUTO DIFF 2015-06-19 WBC 9.8 4.8-10.8 RBC 3.65 4.20-5.40 HGB 10.5 12.0-16.0 HCT 31.3 37.0-47.0 MCV 85.8 81.0-99.0 MCH 28.8 27.0-31.0 MCHC 33.5 32.0-37.0 RDW-CV 14.3 11.5-14.5 PLT 177 130-400 MPV 10.3 7.4-10.4 NE% 74.4 42.2-75.2 LY% 18.2 20.5-51.1 MO% 6.0 1.7-9.3 EO% 0.9 0.9-2.9 BA% 0.2 0.0-0.8 NE# 7.3 1.4-6.5 LY# 1.8 1.2-3.4 MO# 0.6 0.1-0.6 EO# 0.1 0.0-0.2 BA# 0.0 0.0-0.2 FIBRINOGEN 2015-06-19 FIBRINOGEN 354 208-434 CBC, WITH AUTO DIFF 2015-06-01 WBC 10.5 4.8-10.8 RBC 3.84 4.20-5.40 HGB 11.0 12.0-16.0 HCT 32.7 37.0-47.0 MCV 85.2 81.0-99.0 MCH 28.6 27.0-31.0 MCHC 33.6 32.0-37.0 RDW-CV 13.7 11.5-14.5 PLT 194 130-400 MPV 10.7 7.4-10.4 NE% 79.4 42.2-75.2 LY% 14.0 20.5-51.1 MO% 4.4 1.7-9.3 EO% 1.0 0.9-2.9 BA% 0.2 0.0-0.8 NE# 8.4 1.4-6.5 LY# 1.5 1.2-3.4 MO# 0.5 0.1-0.6 EO# 0.1 0.0-0.2 BA# 0.0 0.0-0.2 Hemoglobin 2015-05-19 Hemoglobin 10.7 GLUCOSE JHON GESTATIONAL(50GM) 2015-05-19 GLUCOSE - 1 HR POST 78 Ultrasound : OB greater than 14 weeks 2015-05-19 FBR INTEGRATED SCREEN 2015-03-09 DATE SENT 03/10/15 DATE RESULT REC'D 03-17-2015 RESULT SEE SEPARATE REPORT FBR INTEGRATED SCREEN 2015-03-09 DATE RESULT RECEIVED COMMENT DATE SENT TSH 2014-12-28 Pap Lb, Ct-Ng, rfx HPV ASCU 2014-12-28 . Chlamydia, Nuc. Acid Amp Not Detected Gonococcus, Nuc. Acid Amp Not Detected Note: . Clinical history: benign DIAGNOSIS: Neg. for I.L. or Malignancy Specimen adequacy: Satisfactory Additional comment: Recommendation: Repeat post Performed by: Electronically signed by: Test ordered: Maturation index: Amended report: Addendum: QC reviewed by: Cytology history: Special procedure: QA comment: Diagnosis provided by: Source: Pathologist provided ICD9: Clinician provided ICD9: Interpretation LBP CPT Code Automation CBC, WITH AUTO DIFF 2014-12-28 WBC 10.6 4.8-10.8 RBC 4.37 4.20-5.40 HGB 12.6 12.0-16.0 HCT 36.8 37.0-47.0 MCV 84.2 81.0-99.0 MCH 28.8 27.0-31.0 MCHC 34.2 32.0-37.0 RDW-CV 12.6 11.5-14.5 PLT 225 130-400 MPV 9.7 7.4-10.4 NE% 75.8 42.2-75.2 LY% 17.2 20.5-51.1 EO% 0.6 0.9-2.9 BA% 0.2 0.0-0.8 NE# 8.1 1.4-6.5 LY# 1.8 1.2-3.4 MO# 0.6 0.1-0.6 EO# 0.1 0.0-0.2 BA# 0.0 0.0-0.2 MAN DIFF? NO GLUCOSE 2014-12-28 HIV 1/0/2 ANTIBODIES 2014-12-28 HIVI_TEXT Index Value: Specime n reactivity relative to the negative cut-off. HIV 1/O/2 Abs, Qual NON-REACTIVE NON-REAC TIVE HIV_TEXT All reactive results confirmed by replicate analysis and referred for Multispot confirmation. HEPATITIS B SURFACE ANTIGEN, 2014-12-28 HEP B SURFACE AG NON-REACTIVE NON-REACTIV E RPR, 2014-12-28 RPR NON-REACTIVE NON-REACTIVE RUBELLA IGG ANTIBODY 2014-12-28 RUB HEAD REFERENCE RANGE: (IU /mL) <5.0 : NON-IMMUNE 5.0 - 9.9 : MORALEZ ZONE >= 10.0 : IMMUNE TYPE AND SCREEN, 2014-12-28 ABORh A POSITIVE ANTIBODY SCREEN NEGATIVE NEGATIVE TS COMM Pre-op Type & Screen specimens are valid for 7 days. If the patient has been transfused or been within the past 3 months, the specimen is only valid for 3 days. URINALYSIS DIP w/REFLEX MICRO 2014-12-28 COLOR Yellow YELLOW CLARITY Clear CLEAR SPECIFIC GRAVITY >=1.030 1.000-1.030 pH 6.0 5.0-8.0 PROTEIN Negative NEGATIVE GLUCOSE Negative NEGATIVE KETONES Negative NEGATIVE UROBILINOGEN 0.2 E.U./dL 0.2 E.U./DL BILIRUBIN Negative NEGATIVE BLOOD Negative NEGATIVE LEUKOCYTES Negative NEGATIVE NITRITES Negative NEGATIVE US PELVIC ULTRASOUND 2013-11-22 SEDIMENTATION RATE 2013-07-21 ERYTHROCYTE SEDIMENTATION RATE 12 <=20 AMYLASE 2013-07-21 AMYLASE 31 25-115 LIPASE 2013-07-21 LIPASE 82 73-393 NM HEPATOBILIARY SCAN 2013-07-29 UA Multistix (URO) 2013-07-08 Color yellow Clarity clear Bilirubin Ketones neg Specific [place] Blood neg Glucose neg ph 5 Protein neg Leukocytes neg Nitrates neg Uro Leukocytes Bladder Scan 2013-07-08 FL VOIDING CYSTOURETHROGRAM 2013-07-21 URINALYSIS COMPLETE 2009-09-18 SPEC TYPE CC CULTURED YES CLARITY CLOUDY (NORM: CLEAR SPEC GRAV 1.023 (NORM: 1.005 - 1.030 PH 5.0 (NORM: 4.8 - 7.8 PROTEIN negative (NORM: < 30 MG/DL GLUCOSE negative (NORM: < 50 mg/dL KETONE negative (NORM: NEGATIVE UROBILINOGEN negative (NORM: < 1 MG/DL BILIRUBIN negative (NORM: NEGATIVE BLOOD negative (NORM: NEGATIVE LEUKOCYTES 1+ (NORM: NEGATIVE NITRITE POSITIVE (NORM: NEGATIVE REDUC SUB not tested WBCS _ 25-50 (NORM: M=<1 / F=<5HPF RBCS _ 2-5 (NORM: 0 - 5 HPF EPI CELLS 0-2 (NORM: 1 - 5 HPF CASTS none seen (NORM: 0 - RARE CRYSTALS none seen (NORM: NONE/LPF BACTERIA 4+ (NORM: NONE/HPF CULTURE URINE 2009-09-[address] UROGRAM (KIDNEY STONES) 2009-10-05 REASON FOR VISIT 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 Has not been taking and did not help.Inquiring as to whether she should try something different, ongoing lice, PC - med review/KP, UTI?-will go to at her work loc., PC - discuss sertraline/KP, Discuss Sertraline med change, Sertraline - RF, Results, Medications, Discuss weight loss med and ongoing symptoms of off and on heart palpatations chest pain can not exert herself at all, crushing pressure in her chest/ some SOB only withexertion , Usually accompanied by WOLFE and has been having an increase in WOLFE's tx w/ aleve and or ibuprofren, Lasts a couple of hours feels the pain at base of the neck, pain behind her eyes, Does not have an eye doctor, RE:Re:RE:Change Pharmacy and Appointment request, Re:RE:Change Pharmacy and Appointment request, Update Demographics - Additional Info, Change Pharmacy and Appointment request, Update Demographics - Personal Info, COVID test, antibody , Medication Request, UTI, BIZTALK ADMINISTRATOR 6 wk f/up Mirena placed 07/17& possible UTI, urine cloudy feels like she has to pee an cannot started late lastweek while in [place]., mri order , 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 -, Rx request, AMANUEL- 36 y.o. woman whos mammogram and US are being read as normal. KP felt irregularities; referred to Dr. Paige to make sure it was just fibrocystic changes, AMANUEL- 36 y.o. woman whos mammogram and US are being read as normal. KP felt irregularities; referred to Dr. Paige to make sure it was just fibrocystic changes, AMANUEL- 36 y.o. woman whos mammogram and US are being read as normal. KP felt irregularities; referred to Dr. Paige to make sure it was just fibrocystic changes, mammo/US results - 1callback, pc 1m f/u, Pt states that a few days ago it was sore on the Rt side of her breast states that she has a family history of breast cancer , Pt states that she would like something for her acne, states that she rather take a medication instead of a cream or a gel, because they dry her skin out, her insurance also does not cover it, Retin-A Micro 0.04 % Gel PA- lmom 5/, annual , Sees wom[facility], Pt states that she has been gaining weight and her diet has changed other than she has been trying to eat better, states that her hair has been thining, and that she has been having more acne lately, Prescription Refill, BIZTALK ADMINISTRATOR discharge issues, varicella titer results, pc tb read #2, pc tb plant #2, PC TB READ, PC - annual, Pt states no concerns, Pt declines to have a pap needs to get to work, just wants paper work filled out for school, pt states she did not call for an annualshe called just to have her paper work filled out for school, Test results, PC-? Gallbladder pain, stomach pains, PC pain from right neck to elbow, prescription, pathology report rec'd, pathology report rec''d (DUPLICATE T/E), lab results, prescription for [place] Medicaid, GI COLO, GI-Please evaluate and treat abdominal pain with N/V/D. Stool test negative- bumped to 06/02, RX Zofran 4 mg Tablet, GI abd pain with N/V/D, lab results, Urine Culture, PC - sharp abd pains x 4 days, sharp abd pain, PCcough, chest congestion/Has been sick since last Friday, pc 10 day f/u, pc 10 day f/u, PC-? strep,Daughter had a positive flu A, beginning of the week in ED. On tamiflu, pt has been coughing, sore throat, SOB, congested, fever intermittently. Been taking teraflu, with mild results, 3 days ago ptssx got worse. , BIZTALK ADMINISTRATOR ? UTI, sx started Friday am, cramping, buring with urination, frequency. Started taking AZO Friday am., PC/NEW PATIENT, records in, Records in, BIZTALK ADMINISTRATOR EST BREAST PAIN, BIZTALK ADMINISTRATOR EST , BIZTALK ADMINISTRATOR EST , BIZTALK ADMINISTRATOR EST , OB F/U, Itching, OB F/U, OB F/U, ob f/u, Breast pump, ob f/u, OB F/U, ob follow up, OB F/U , URI, OB EST 4 WKS, OB F/U, OB F/U, OB EST 4 WKS, OB F/U, OB EST INITIAL, labs, Medication Concerns, US report, BIZTALK ADMINISTRATOR NEW PROBLEM- heavy periods., Omeprazole PA, one of her scripts needs a prior auth, drug interaction, GI 2 wk fu EGD 09/02, Pt c/o recurring, intermittent vomiting and diarrhea. She notes that she had been doing well until this past Friday., GI 2 wk fu EGD 09/02-conflicting appts r/s'd to 09/17-mk, GI EGD, Insurance issue, GI Sever nausea and anorexia, weight loss, HIDA scan done recently, appt with TRACE Larsen-hida/GI, URO f/u [facility], URODYNAMI CS, pt to call us back, uro-ER fu UTI, L wrist pain, PMR PIE L wrist, dvd of CT urogram, ORTH f/u shoulder, note for work, ORTH Shoulder issues looking to get back to work., F/U Cysto URO, CIC, recurrent uti, preload emr clinical data, Returning your call, Work note Insurance Providers Health Insurance Type Health Plan Insurance Address Health Plan Insurance Phone Health Plan Insurance Name Health Plan Coverage Dates Member ID Patient Relationship to Subscriber Patient Address Patient Phone Patient Name Patient Date of Subscriber ID Subscriber Name Subscriber Date of Group No [place] MED[place] [address] [facility] [id number] 06 [place] self Josephine Mejia [id number] [facility] [place] MED[place] [address] [facility] [phone] 06 [facility] [place] self Josephine Mejia [id number] [place] [employer] [address] [facility] [address] [facility] [address] [place] [employer] [place] [employer] self Josephine Roberto [id number] BC[employer] OF AREA [address] [employer] [facility] [id number] [employer] OUT OF AREA self Josephine Mejia [id number] [place] MED[place] [address] [facility] [id number] - 06 [place] self Josephine Mejia [id number]
[2023-01-31 15:19] LABS: ALT 18 U/L (14-59); AST 12 U/L (15-37); Albumin 4.2 g/dL (3.4-5.0); Alkaline Phosphatase 78 U/L (46-116); Anion Gap 7.2 mmol/L (3-11); BUN 15 mg/dL (7-18); Bilirubin, Total 0.6 mg/dL (0.2-1.0); CO2 28.8 mmol/L (21.0-32.0); CREATININE 1.1 mg/dL (0.55-1.02); Calcium 9.4 mg/dL (8.5-10.1); Chloride 102 mmol/L (98-107); Estimated GFR 66.37 (mL/min/1.73m2); Glucose 86 mg/dL (74-106); Potassium 3.7 mmol/L (3.5-5.1); Sodium 138 mmol/L (136-145); TSH (W/Ref FT4) 2.56 uIU/mL (0.36-3.74); Total Protein 7.8 g/dL (6.4-8.2)
== END 2023-01-31 14:54 | disposition home or self-care (01) ==
LOC: LBO 14:54
PROVIDERS: PCP Family Medicine; Visit Provider Registered Nurse Infection Control
DX: Z13.6 Encounter for screening for cardiovascular disorders (principal); R63.5 Abnormal weight gain
CPT/HCPCS: 36415; 80053; 84443

== ENCOUNTER 2023-02-28 15:34 | Outpatient (CLI) | payer MEDICAID, SELFPAY ==
--- NOTE | 2023-02-28 10:00 | DI.US_ITS ---
Exam(s) US RENAL EXAM: US RENAL CLINICAL HISTORY: Rt flank pain, R10.9, r/o stone TECHNIQUE: Ultrasound of both kidneys performed using standard protocol. COMPARISON: CT ABD PELVIS WO CONTRAST from 09/10/2014 US [facility] OB ULTRASOUND from 08/06/2016 FINDINGS: KIDNEYS: There is a solitary right kidney (as also seen on CT scan of 2013), this exhibiting 13.8 cm length (c ompensatory) and exhibiting normal cortical thickness and normal corticomedullary differentiation. N o cysts nor masses. No intrarenal calculi. No perinephric fluid. URINARY BLADDER: Prevoid volume is 571 cc Postvoid volume is 261 cc Uniform wall thickness of 2.9 mm No evidence of distinct bladder wall mass nor diverticuli. Ureterovesical jets: The right ureterovesical jet was identified. There is no left ureterovesical je t as there is no left kidney. IMPRESSION: 1. Solitary normal-appearing right kidney, as also seen on CT scan of 2013. 2. Postvoid residual volume in the urinary bladder is 261 cc which is significantly elevated. Possi ble element of bladder outlet obstruction versus functional abnormality.. There is no hydronephrosis of the solitary right kidney. DATA REPOSITORY:
--- OUTSIDE RECORDS SUMMARY | 2023-02-28 15:43 | XMS_ITS | Continuity of Care Document ---
Author Name Unknown Organization [facility] Ambulatory [facility]ics Address [address] [place] [address] Care Team Providers Care Photo Producer Name Role Phone Dede Soto Primary Care Physician [phone] Encounter [facility] FIN NBR [id number] Date(s): 02/05/23 - 02/05/23 [facility] Amb[facility] [address] [place] [address]- [place] Encounter Diagnosis ADHD(Discharge Diagnosis) - 02/05/23 Solitary kidney, congenital(Discharge Diagnosis) - 02/05/23 Discharge Disposition: Home or Self Care Attending Physician: Dede Soto APRN Allergies, Adverse Reactions, Alerts Substance Reaction Severity Status nitrofurantoin Rash Eruption Moderate Active Macrobid Rash Moderate Active Assessment and Plan Future Scheduled Tests Laboratory* Comprehensive Metabolic Panel 09/26/22 * TSH w/ Rflx to Free T4 09/26/22 Radiology* US Abdomen Limited 11/21/22 * US Abdomen Limited 11/14/22 Functional Status 02/05/23 Other exposure to Infectious Disease Non e Immunizations Given and Recorded Vaccine Date Status Refusal Reason BCG 1 05/16/21 Recorded BCG 2 05/16/20 Recorded influenza virus vaccine, inactivated 3 09/17/16 Re corded influenza virus vaccine, inactivated 4 07/26/15 Re corded tetanus/diphth/pertuss (Tdap) adult/adol 5 05/19/15 Recorded 1Result Comment: Unit: Unknown Water Safety Instructor: Osmosis 2Result Comment: Unit: Unknown Water Safety Instructor: Sanofi Pasteur 3Result Comment: Unit: Unknown Water Safety Instructor: GlaxoSmithKline 4Result Comment: Water Safety Instructor: GlaxoSmithKline 5Result Comment: Water Safety Instructor: Sanofi Pasteur Medications Accutane 80 mg =, Oral, Si mg Oral daily, 0 Refill(s) Start Date: 02/03/23 Status: Ordered Adderall 10 mg oral tablet 10 mg 1 tab, Oral, Daily, Take in the afternoon., # 30 tab, 0 Refill(s), Pharmacy: [id number], 168, cm, 12/13/22 17:32:00 EST, Height/Length Dosing, 93, kg, 12/13/22 17:32:00 EST, Weight Dosing Start Date: 02/05/23 Stop Date: 03/07/23 Status: Ordered Adderall XR 20 mg oral capsule, extended release 20 mg 1 cap, Oral, every morning, # 30 cap, 0 Refill(s), Pharmacy: [id number], 168, cm, 12/13/22 17:32:00 EST, Height/Length Dosing, 93, kg, 12/13/22 17:32:00 EST, Weight Dosing Start Date: 02/05/23 Stop Date: 03/07/23 Status: Ordered dulaglutide 1.5 mg/0.5 mL subcutaneous solution See Instructions, 1.0 ml Subcutaneous every week 30 days, use 2 injections of 0.5 ml each week, # 4mL, 3 Refill(s), Pharmacy: [id number], 168, cm, 12/13/22 17:32:00 EST, Height/Length Dosing, 93, kg, 12/13/22 17:32:00 EST, Weight Dosing Start Date: 12/19/22 Status: Ordered FLUoxetine 20 mg oral tablet 40 mg = 2 tab, Oral, Daily, # 180 tab, 3 Refill(s), Pharmacy: [id number] Start Date: 09/26/22 Stop Date: 09/21/23 Status: Ordered ibuprofen 800 mg oral tablet TID, PRN as needed for pain, 1 Unknown, 0 Refill(s) Start Date: 09/25/22 Status: Ordered ketorolac 10 mg oral tablet 10 mg = 1 tab, Oral, every 6 hr, PRN as needed for pain, not to exceed 40 mg/day and 5 days duration for all dose forms, # 10 tab, 0 Refill(s), Pharmacy: [email or web address], 167.64, cm, 11/24/22 4:40:00 EST, Height/Length [...] Site Status Cholecystectomy Laparoscopy 1 12/20/22 Completed Colonoscopy 2 06/2019 Completed EGD (esophagogastroduodenosc opy) gastric outlet reduction 09/01/13 Complet ed History of surgery 3 Comp leted 1auto-populated from documented surgical case 2benign findings date 06/2019 3cyst removal on hand Unknown Date Vital Signs Most recent to oldest [Reference Range]: 1 Temperature Temporal Artery [36-38 Deg C ] 36.8 Deg C (02/05/23 11:31 AM) Peripheral Pulse Rate [60-100 bpm] 81 bp m (02/05/23 11:31 AM) Blood Pressure [90-140/60-90 mmHg] 140/8 0mmHg (02/05/23 11:31 AM) Weight 93.2 kg (02/05/23 11:31 AM) Weight Measured (lbs) 205.471 lb (02/05/23 11:31 AM) [place] Body Weight Calculated 52.4 kg (02/05/23 11:31 AM) Height 160.02 cm (02/05/23 11:31 AM) Height/Length Measured (inches) 63 inch (02/05/23 11:31 AM) BSA Measured 2.04 m2 (02/05/23 11:31 AM) Body Mass Index 36.4 kg/m2 (02/05/23 11:31 AM) Social History Social History Type Response Tobacco Never tobacco user T obacco Use:. Sex Hospital Discharge Instructions Follow Up Care 01/31/2023 13:48:51 With:Follow up with primary care provider Address: When:3 Months Physician Outpatient Note * Dede Soto APRN: PERFORM Event Display: Office Clinic Note Physician Authored Date: [id number] JOSEPHINE NIETO :1985 Age:38 years Sex:Female Visit Date:02/05/2023 Primary Care Physician: Dede Soto APRN Chief Complaint patient is here for labs results. DIscuss about her ADHD. History of Present Illness Josephine was seen today to discuss worsening symptoms of ADHD.?? She is now having difficulty focusingat work and getting her school work done.?? She is actually turning things in late and know she needs to complete assignments, but cannot focus enough to get them done.?? 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 We also reviewed labs done at [facility], she was able to pull them up on her phone in her portal.?? TSH was 2.57 and the remainder of the CMP was normal.?? She does only have one kidney and her GFR is 66.?? Review of Systems Constitutional:?No??fevers,?No??chills,?No??sweats, No weight loss Cardiovascular:?No??Chest pain,?No??palpitations,?No??syncope Gastrointestinal:?Nonausea,?No??vomiting,?No??diarrhea, No abdominal pain Genitourinary:?No??hematuria Hal/Lymph:?No??bruising tendency,?No??swollen lymph glands Endocrine:?No??excessive thirst,??No??excessive hunger Musculoskeletal:??No??back pain,??No??neck pain,??No??joint pain,??No??muscle pain,??No??decreased range of motion Integumentary:?No??rash,?No??pruritus,?No??abrasions Neurologic: Alert & oriented X 4 Psychiatric:?No??anxiety,?No??depression Physical Exam Vitals & Measurements T:??36.8?C ??(Temporal Artery)?? HR:??81??(Peripheral)?? BP:??140/80?? SpO2:??96%?? HT:??160.02??cm?? WT:??93.2??kg?? BMI:??36.4?? BSA:??2.04?? General: Alert and oriented, well nourished, no acute distress. Neurologic: Awake, alert and oriented X4, CN II-XII intact. Psychiatric: Cooperative, appropriate mood and affect. Assessment/Plan 1.??ADHD??F90.9 We reviewed her symptoms and have been unable to get her into psych to be evaluated for a diagnosis.?? We discussed treatment and she would like to proceed with this.?? She does have 2 children diagnosed with ADHD.?? She is aware of the restrictions surrounding prescribing of controlled substances.?? We will start with Adderall XR 20 mg q am and Adderall IR 10 mg in the afternoon if needed.?? Some days she is working 12 hour shifts and other days she has class until 10 pm.?? Reviewed risks including increased BP, increased risk of OK and stroke.?? She will call prior to her next prescription and let me know if this is helping.?? She is also aware she must call monthly and no early refills and no scripts on the weekend.?? Call the office with concerns. 2.??Solitary kidney, congenital??Q60.0 Will monitor her Kidney functions.?? Current GFR is 66. Orders: Adderall 10 mg oral tablet, 10 mg 1 tab, Oral, Daily, Take in the afternoon., # 30 tab, 0 Refill(s), Pharmacy: [facility], 168, cm, 12/13/22 17:32:00 EST, Height/Length Dosing, 93, kg, 12/13/2316:32:00 EST, Weight Dosing Adderall XR 20 mg oral capsule, extended release, 20 mg 1 cap, Oral, every morning, # 30 cap, 0 Refill(s), Pharmacy: [email or web address], 168, cm, 12/13/22 17:32:00 EST, Height/Length Dosing, 93, kg, 12/13/22 17:32:00 EST, Weight Dosing Follow Up Instructions With When Contact Information Follow up with primary care provider Within 3 Months Additional Instructions: Problem List/Past Medical History Ongoing Acne Acute esophagitis Anxiety Chronic UTI COVID Diarrhea Epigastric pain Helicobacter-associated gastritis Incomplete emptying of bladder Intrauterine contraceptive device in situ Irritable bowel syndrome with diarrhea Loss of appetite Major depression, single episode Mixed anxiety and depressive disorder Nausea Reactive depression (situational) Recurrent urinary tract infection Renal agenesis Retention of urine Transitory mood disturbance Urinary tract infectious disease Weight loss Historical Disorder of stomach Procedure/Surgical History ???Cholecystectomy Laparoscopy (12/20/2022)???Colonoscopy (06/2019)???EGD (esophagogastroduodenoscopy) gastric outlet reduction (09/02/2013)???History of surgery Medications Accutane, 80 mg, Oral Adderall 10 mg oral tablet, 10 mg= 1 tab, Oral, Daily Adderall XR 20 mg oral capsule, extended release, 20 mg= 1 cap, Oral, every morning dulaglutide 1.5 mg/0.5 mL subcutaneous solution, See Instructions, 3 refills FLUoxetine 20 mg oral tablet, 40 mg= 2 tab, Oral, Daily, 3 refills ibuprofen 800 mg oral tablet, TID, PRN ketorolac 10 mg oral tablet, 10 mg= 1 tab, Oral, every 6 hr, PRN Mirena Trulicity Pen 3 mg/0.5 mL subcutaneous solution, 3 mg= 0.5 mL, Subcutaneous, every week Allergies Macrobid??(Rash) nitrofurantoin??(Rash, Eruption) Social History Alcohol Current, 1-2 times per month Electronic Cigarette/Vaping Electronic Cigarette Use: Never. Substance Use Never Tobacco Never tobacco user Tobacco Use:. Family History Diabetes mellitus: Mother. Other: Mother. Pancreatitis: Mother. Immunizations Vaccine Date Status BCG 05/16/2021 Recorded Comments : Unit: Unknown Water Safety Instructor: Osmosis BCG 05/16/2020 Recorded Comments : Unit: Unknown Water Safety Instructor: Sanofi Pasteur influenza virus vaccine, inactivated 09/17/2016 Recorded Comments : Unit: Unknown Water Safety Instructor: GlaxoSmYakaroulerKline influenza virus vaccine, inactivated 07/26/2015 Recorded Comments : Water Safety Instructor: GlaxoSmithKline tetanus/diphth/pertuss (Tdap) adult/adol 05/19/2015 Recorded Comments : Water Safety Instructor: Sanofi Pasteur Electronically Signed on 02/05/23 12:28 PM Dede Soto APRN Patient Care team information Care Team Personnel Name: Dede Soto APRN Position: Physician Member Role: Primary Care Physician Address: Address: [address] [place] [address] [address] [place] [address]- Care Team Related Persons Name: BUZZ ENGEL Address: Home [address] [place], [place] [id number] [facility] Address: Mailing [address] [place], [place] [phone] Name: NEY NIETO
--- OUTSIDE RECORDS SUMMARY | 2023-02-28 15:46 | XMS_ITS ---
Author Name Francesco Crowder Address [address], [place] [id number] [facility] Address [address], [place] [id number] Care Team Providers Care Plater Helper Name Role Phone Francesco Crowder Unavailable [phone] PROBLEMS Type Condition ICD9-CM Code [id number] Code Onset Dates Condition Status SNOMED Code Problem Retention of urine, unspecified 788.20 Active 297578440 Problem Mixed anxiety and depressive disorder F41.8 Active 674565610 Problem Nausea 787.03 Active 543527318 Problem URIN TRACT INFECTION NOS 599.0 Active 12736139 Problem Weight Loss 783.21 Active 96412749 Problem Anorexia 783.0 Active 33712627 Problem Epigastric abdominal pain 789.06 Active 91113858 Problem Nausea vomiting and diarrhea 787.91 Active 37319256 Problem Gastritis, Helicobacter pylori 041.86 Active 51832387 Problem Recurrent UTI N39.0 Active 370055010 Problem 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 Active 080798920 Problem IUD (intrauterine device) in place Z97.5 Active 474611766 Problem Acute esophagitis K20.90 Active 199713 006 Problem Acne, unspecified acne type L70.9 Active 83916866 Problem Urinary retention with incomplete bladder emptying R33.9 Active 564248610 Problem Gastropathy 537.9 Active 92099121 Problem Major depressive disorder, single episode, unspecified F32.9 Active 73691618 Problem depression, condition O90.6 Active Problem Irritable bowel syndrome with diarrhea K58.0 Active 520501790 Problem Anxiety F41.9 Active 21641479 Problem Reactive depression F32.9 Active ALLERGIES Substance Reaction Event Type Date Status Macrobid rash Drug Allergy 09 Jun, 2022 Active ENCOUNTERS Encounter Location Date Diagnosis [address] [place] [id number] 09 Jun, 2022 Dysuria R30.0 ; Vaginal discharge N89.8 ; Encounter for screening for malignant neoplasm of cervix Z12.4 ; Encounter for screening for infections with a predominantly sexual mode of transmission Z11.3 ; Pelvic pain R10.2 ; Urinary retention with incomplete bladder emptying R33.9 ; IUD (intrauterine device) in place Z97.5 and 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 [facility] [address] [place] [address] [id number] Jun, Major depressive disorder, single episode, unspecified F32.9 [facility] [address] [place] [address] [id number] May, [facility] [address] [place] [address] [id number] May, [facility] [address] [place] [address] [id number] May, Major depressive disorder, single episode, unspecified F32.9 ; Anxiety F41.9 and Atypical chest pain R07.[address] [id number] Apr, [facility] [address] [place] [address] [id number] Apr, [facility] [address] [place] [address] [id number] February, [facility] [address] [place] [address] [id number] February, [facility] [address] [place] [address] [id number] Jan, [facility] [address] [place] [address] [id number] 15 Jan, 2022 Palpitations R00.2 ; Dizziness R42 and Encounter for screening mammogram for malignant neoplasm of breast Z12.31 [facility] [address] [place] [address] [id number] Jan, [facility] [address] [place] [address] [id number] Jan, [address] [id number] Dec, [address] [id number] Dec, [address] [id number] Dec, [address] [id number] Oct, [facility] [address] [id number] Oct, SARS-CoV-[address] positive [address] [id number] Oct, [address] [id number] Aug, [address] [id number] Aug, [address] [id number] Aug, Dysuria R30.0 and IUD surveillance Z30.431 [facility] [address] [id number] Jul, Breast cancer screening, high risk patient Z12.39 [facility] [address] [id number] Jul, [facility] [address] [id number] Jul, [address] [id number] Jun, [facility] [address] [id number] Jun, [address] [id number] Jun, Encounter for IUD removal and reinsertion Z30.433 and Encounter for screening for malignant neoplasm of cervix Z12.4 [facility] [address] [id number] Jun, Mastodynia N64.4 ; Family history of breast cancer in female Z80.3 and Breast cancer screening, high risk patient Z12.[address] [id number] 09 Jun, [address] [id number] 09 Jun, [address] [id number] 09 Jun, [address] [id number] 10 May, 2021 [facility] [address] [place] [address] [id number] 24 Apr, 2021 [facility] [address] [place] [address] [id number] Apr, Encounter for pre-employment examination Z02.[address] [id number] 15 Apr, 2021 [facility] [address] [place] [address] [id number] 14 Apr, 2021 Encounter for screening laboratory testing for COVID-19 virus Z20.828 and Viral upper respiratory tract infection J06.[address] [id number] 14 Apr, [address] [id number] Apr, [facility] [address] [id number] 24 Mar, 2021 Mastodynia N64.[address] [id number] 15 Feb, 2021 [facility] [address] [place] [address] [id number] 11 Feb, 2021 Breast lump or mass N63.0 ; Hair loss L65.9 ; Reactive depression F32.9 and Parent/child conflict Z62.[address] [id number] Jan, Encounter for general adult medical examination without abnormal findings Z00.00 [facility] [address] [place] [address] [id number] Jan, Encounter for general adult medical examination without abnormal findings Z00.00 ; Acute esophagitis K20.90 ; Anxiety F41.9 and Adult acne L70.[address] [id number] Aug, [address] [id number] Jul, Vaginal discharge N89.8 and Dysuria R30.[address] [id number] May, [address] [id number] Apr, Immunity to varicella determined by serologic test Z01.[address] [id number] Apr, [address] [id number] Apr, [address] [id number] Apr, High rubella virus antibody titer R76.0 and Rubella immune Z78.[address] [id number] Dec, [address] [id number] Dec, Colicky RUQ abdominal pain R10.[address] [id number] Dec, [address] [id number] Jul, [address] [id number] Jul, Cervicalgia M54.2 and Strain of right trapezius muscle, initial encounter S46.811A [facility] [address] [place] [address] [id number] Jun, Nausea R11.[address] [facility] [address] [place] [address] [id number] Jun, [facility] [address] [place] [address] [id number] Jun, [facility] [address] [place] [address] [id number] Jun, [facility] [address] [place] [address] [id number] Jun, Nausea R11.0 [facility] [address] [place], [place] [id number] Jun, Irritable bowel syndrome with diarrhea K58.0 ; Lower abdominal pain R10.30 and Abdominal bloating R14.0 [facility] [address] [id number] May, Nausea R11.0 [facility] [address] [id number] May, Lower abdominal pain R10.30 ; Irritable bowel syndrome with diarrhea K58.0 ; Nausea R11.0 and Abdominal bloating R14.0 [facility] [address] [place] [address] [id number] Apr, Epigastric pain R10.13 and Diarrhea, unspecified R19.7 [facility] [address] [place] [address] [id number] Mar, [facility] [address] [place] [address] [id number] Mar, Bowel habit changes R19.4 and Lower abdominal pain R10.30 [facility] [address] [place] [address] [id number] Mar, [facility] [address] [place] [address] [id number] Jan, Upper respiratory tract infection, unspecified type J06.9 [facility] [address] [place] [address] [id number] Oct, Sore throat J02.9 ; Cough R05 ; Fever, unspecified fever cause R50.9 and Left otitis media, unspecified otitis media type H66.92 [facility] 600 [facility] [address] [place] [address] [id number] Nov, Dysuria R30.0 and Unspecified condition associated with female genital organs and menstrual cycle N94.9 [facility] [address] [place] [address] [id number] Aug, Encounter for immunization Z23 and School physical exam Z02.0 [facility] [address] [place], [place] [id number] Aug, [facility] [address] [place] [address] [id number] Aug, Francesco Crowder MD [address] [place] [address] [id number] Sep, Candidiasis, unspecified B37.9 Francesco Crowder MD [address] [place] [address] [id number] Sep, Encounter for routine follow-up Z39.2 ; 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 ; Recurrent UTI N39.0 ; Encounter for screening for malignant neoplasm of cervix Z12.4 and depression, condition O90.6 Francesco Crowder MD [address] [place] [address] [id number] Jul, Encounter for routine follow-up Z39.2 and Dysuria R30.0 Francesco Crowder MD [address] [place] [address] [id number] Jul, Encounter for supervision of other normal , third trimester Z34.83 and 39 weeks gestation of Z3A.39 Francesco Crowder MD [address] [place] [address] [id number] Jul, Vaginal irritation N89.8 Francesco Crowder MD [address] [place] [address] [id number] Jul, Encounter for supervision of other normal , third trimester Z34.83 and 38 weeks gestation of Z3A.38 Francesco Crowder MD [address] [place] [address] [id number] Jun, Encounter for related examination in third trimester V22.1 and Flu vaccine need V04.81 Francesco Crowder MD [address] [place] [address] [id number] Jun, Encounter for related examination in third trimester V22.1 and Transverse or oblique presentation of fetus, antepartum 652.33 Francesco Crowder MD [address] [place] [address] [id number] Jun, Encounter for supervision of normal in third trimester V22.1 Francesco Crowder MD [address] [place] [address] [id number] Jun, Abdominal pain affecting , antepartum 646.83 ; Encounter for related examination in third trimester V22.1 ; SCREEN STREP B V28.6 and Transverse or oblique presentation of fetus, antepartum 652.33 Francesco Crowder MD [address] [place] [address] [id number] Jun, Encounter for related examination in third trimester V22.1 Francesco Crowder MD [address] [place], [place] [id number] May, Encounter for related examination in third trimester V22.1 and Traumatic injury during in third trimester 648.93 Francesco Crowder MD [address] [place], [place] [id number] May, Encounter for related examination in third trimester V22.1 and Herpes genitalia 054.10 Francesco Crowder MD [address] [place], [place] [id number] May, Encounter for related examination in third trimester V22.1 ; Acute upper respiratory infection 465.9 and Anemia affecting in third trimester 648.23 Francesco Crowder MD [address] [place], [place] [id number] Apr, Encounter for supervision of normal in second trimester V22.1 ; Need for rngkazxsut-oherzex-wtmdu ssis (Tdap) vaccine V06.1 and Anemia affecting in third trimester 648.23 Francesco Crowder MD [address] [place], [place] [id number] Mar, Encounter for related examination in second trimester V22.1 and Uterine size date discrepancy 649.63 Francesco Crowder MD [address] [place], [place] [id number] February, Encounter for related examination in second trimester V22.1 ; Depression 311 and Tendonitis 726.90 Francesco Crowder MD [address] [place], [place] [id number] Jan, Encounter for related examination in second trimester V22.1 Francesco Crowder MD [address] [place], [place] [id number] Jan, Normal , repeat V22.1 Francesco Crowder MD [address] [place], [place] [id number] Dec, Normal V22.1 ; Goiter 240.9 ; Cervical cancer screening V76.2 and SCREEN FOR VENERAL DIS V74.5 [facility] 600 [facility] [address] [place], [place] [id number] Nov, Francesco Crowder MD [address] [place] [address] [id number] Nov, Francesco Crowder MD [address] [place], [place] [id number] Nov, Francesco Crowder MD [address] [place] [address] [id number] Oct, Heavy periods 626.2 ; Dyspareunia 625.0 and PRSC NTRUTR CNTRCPTV DVC V45.51 [facility] [address] [id number] Aug, [facility] [address] [id number] Aug, [facility] [address] [id number] Aug, [facility] [address] [id number] Aug, Gastritis, Helicobacter pylori 041.86 [facility] [address] [id number] 07 Aug, 2013 Epigastric abdominal pain 789.06 ; Nausea vomiting and diarrhea 787.91 ; Weight Loss 783.21 ; Gastropathy 537.9 and Esophagitis, acute 530.12 [facility] [address] [id number] Jul, [facility] [address] [id number] Jul, Epigastric abdominal pain 789.06 ; Nausea 787.03 ; Nausea vomiting and diarrhea 787.91 and Weight Loss 783.21 UNKNOWN 07 Jul, 2013 [facility] [address] [id number] Jun, [facility] [address] [id number] Jun, Nausea 787.03 ; Retention of urine, unspecified 788.20 and Anorexia 783.0 [facility] [address] [id number] Jun, [facility] [address] [id number] Jun, Retention of urine, unspecified 788.20 and URIN TRACT INFECTION NOS 599.0 [facility] [address] [id number] February, [facility] [address] [place], [place] [id number] Jul, [address] [place] [address] [id number] May, SPRAIN OF NECK 847.0 [facility] 600 [facility] [address] [place], [place] [id number] May, [address] [place], [place] [id number] May, Acute cervical sprain 847.0 [facility] [address] [place] [address] [id number] Sep, URIN TRACT INFECTION NOS 599.0 [facility] [address] [place] [address] [id number] Aug, [facility] [address] [place] [address] [id number] Aug, [facility] [address] [place] [address] [id number] Aug, Retention of urine, unspecified 788.20 and URIN TRACT INFECTION NOS 599.0 [facility] [address] [place] [address] [id number] Aug, URIN TRACT INFECTION NOS 599.0 [facility] [address] [place] [address] [id number] Aug, [address] [id number] May, [address] [id number] May, IMMUNIZATIONS Vaccine Route Administration Date Status [...] PROCEDURES Procedure Date Ordered Result Body Site SUBSEQUENT CARE Jul 14, 2015 Tdap - Adult May 19, 2015 IMMUNIZATION ADMINISTRATION May 19, 2015 CARE VISIT Aug 14, 2015 SUBSEQUENT CARE April 21, 2015 IMMUNIZATION ADMINISTRATION Jul 26, 2015 SUBSEQUENT CARE February 22, 2015 ELECTROCARDIOGRAM COMP February 08, 2022 URINALYSIS NONAUTO W/O SCOPE Jul 05, 2022 SUBSEQUENT CARE Jun 19, 2015 IUD INSERTION Jul 17, 2021 EGD WITH BIOPSYS Sep 02, 2013 GLUCOSE; POST GLUCOSE DOSE May 19, 2015 SUBSEQUENT CARE Jun 01, 2015 PIE March 04, 2012 JASMIN - Flu VACC 6 MONTHS > Sep 17, 2016 IUD REMOVAL Jul 17, 2021 URINALYSIS NONAUTO W/O SCOPE Dec 02, 2016 SUBSEQUENT CARE Aug 09, 2015 RAPID INFLUENZA TEST Nov 21, 2017 SUBSEQUENT CARE Jul 05, 2015 SUBSEQUENT CARE Jul 19, 2015 INITIAL CARE VISIT December 28, 2014 IH URINALYSIS NONAUTO W/O SCOPE Aug 28, 2021 IMMUNIZATION ADMINISTRATION Sep 17, 2016 RAPID STREP TEST CLIA Nov 21, 2017 LNG-RELEASING IUC SYS 52MG 5 YR DUR Jul 17, 2021 SUBSEQUENT CARE March 24, 2015 SUBSEQUENT CARE Aug 02, 2015 ABY/WET [place] VAGINAL Jul 05, 2022 URINALYSIS, DIPSTICK W/MICROSCOP Aug 14, 2015 URINALYSIS NONAUTO W/O SCOPE Jul 08, 2013 SUBSEQUENT CARE January 25, 2015 SUBSEQUENT CARE May 19, 2015 BLOOD COUNT HEMOGLOBIN May 19, 2015 CARE VISIT Sep 29, 2015 CYSTOURETHROSCOPY Oct 06, 2009 SUBSEQUENT CARE Jul 26, 2015 SUBSEQUENT CARE Jun 16, 2015 JASMIN - Flu VACC 6 MONTHS > Jul 26, 2015 COLONOSCOPY & COLD BIOPSY POLYPECTOMY Jul 16, 2019 TB INTRADERMAL May 16, 2020 TB INTRADERMAL May 16, 2021 RESULTS Name Result Date Reference Range Pap [...] trace LEUKOCYTES negative CHLAMYDIA/GONOCOCCUS, by PCR ([facility] Send Out) 2022-07-05 C. trachomatis by PCR [...] (Cepheid) AUTHORIZED ONLY 2021-11-07 URINE DIP ([facility]) 2021-08-28 Color yellow Clarity cloudy Glucose neg Bilirubin neg Ketones neg Specific [place] 1.000 Blood about 50 PH 1.010 Protein [...] XR SHOULDER RIGHT 2019-08-09 CELIAC DISEASE COMPREHENSIVE ([id number]) 2019-07-16 Deamidated Gliadin Abs, IgA 2 0-19 Deamidated Gliadin Abs, IgG 2 0-19 t-Transglutaminase (tTG) IgA <2 0-3 t-Transglutaminase (tTG) IgG <2 0-5 Endomysial Antibody IgA Negative Nega tive Immunoglobulin A, Qn, Serum [phone] US ABDOMINAL COMPLETE 2019-05-21 FECAL LEUKO-LACTOFERRIN 2019-04-15 FECAL LACTOFERRIN NEGATIVE NEGATIVE OVA AND PARASITE ROUTINE ([id number]) 2019-04-15 Ova + Parasite Exam Final report [...] yellow Clarity clear Bilirubin Ketones neg Specific [place] Blood neg Glucose neg ph 5 Protein [...] UROGRAM ([facility]) 2009-10-05 REASON FOR VISIT CAPACITY ANALYST dysuria and malodorous odor, CAPACITY ANALYST dysuria and malodorous odor, Med Fill/Lab Results, [...] COVID test, antibody , Medication Request, UTI, CAPACITY ANALYST 6 wk f/up Mirena placed 07/17& possible UTI, urine cloudy feels like she has to pee an cannot started late lastweek while in [place]., mri order , delinquency prevention officer est IUD removal, replace w/Paragard, Re:RE:Medical question,Medical question, WAITING FOR PA , delinquency prevention officer est IUD removal, replace w/Paragard, breast, Appointment [...] been having more acne lately, Prescription Refill, CAPACITY ANALYST discharge issues, varicella titer results, pc tb [...] 3 days ago ptssx got worse. , CAPACITY ANALYST ? UTI, sx started Friday am, cramping, buring with urination, frequency. Started taking AZO Friday am., PC/NEW PATIENT, records in, Records in, CAPACITY ANALYST EST BREAST PAIN, CAPACITY ANALYST EST , CAPACITY ANALYST EST , CAPACITY ANALYST EST , OB F/U, Itching, OB F/U, OB F/U, ob f/u, Breast pump, ob f/u, OB F/U, ob follow up, OB F/U , URI, OB EST 4 WKS, OB F/U, OB F/U, OB EST 4 WKS, OB F/U, OB EST INITIAL, labs, Medication Concerns, US report, CAPACITY ANALYST NEW PROBLEM- heavy periods., Omeprazole PA, one [...] Group No [place] [address] [facility] [id number] 06 [place] Josephine Mejia [id number] [facility] [place] [address] [facility] [phone] [facility] [place] self Josephine Mejia [id number] [place] [address] [facility] [id number] 06 [place] Josephine Mejia [id number] [employer] [address] [employer] [facility] [id number] [employer] self Josephine Mejia [id number] [employer] OFF[employer] 1194 [facility] 104 [address] [facility] [address] [employer] OFF[employer] self Josephine Mejia [id number]
== END 2023-02-28 15:54 ==
LOC: DI 15:34
PROVIDERS: PCP Family Medicine; Visit Provider Physician Assistant
DX: R10.9 Unspecified abdominal pain (principal)
CPT/HCPCS: 76770

== ENCOUNTER 2023-02-28 16:14 | Outpatient (REF) | payer MEDICAID, SELFPAY ==
[2023-02-28 12:48] LABS: Abs Immature Grans 0.03 10^3/uL (0.0-0.06); Absolute Basophil Count 0.03 10^3/uL (0.0-0.2); Absolute Eosinophil Count 0.09 10^3/uL (0.0-0.7); Absolute Lymphocyte Count 2.08 10^3/uL (1.2-3.4); Absolute Monocyte Count 0.56 10^3/uL (0.1-0.8); Absolute Neutrophil Count 7.09 10^3/uL (1.2-6.7); Basophils % 0.3; Eosinophils % 0.9; HCT 40.9 % (36.0-46.0); HGB 13.9 g/dL (11.2-15.7); Immature Grans % 0.3; Lymphocytes % 21.1; MCH 29.4 pg (27.0-33.0); MCV 87 fL (80-95); MPV 9.8 fL (8.0-11.0); Monocytes % 5.7; Neutrophils % 71.7; Platelet Count 303 10^3/uL (130-400); RBC 4.72 10^6/uL (3.93-5.22); RDW 12.9 % (11.7-14.6); RDW-SD 40.2 fL; WBC 9.88 10^3/uL (4.4-10.8)
[2023-02-28 13:08] LABS: ALT 26 U/L (14-59); AST 15 U/L (15-37); Alkaline Phosphatase 70 U/L (46-116); Anion Gap 7.2 mmol/L (3-11); BUN 20 mg/dL (7-18); Bilirubin, Total 0.4 mg/dL (0.2-1.0); CO2 27.8 mmol/L (21.0-32.0); CREATININE 1.1 mg/dL (0.55-1.02); Calcium 9.5 mg/dL (8.5-10.1); Chloride 104 mmol/L (98-107); Estimated GFR 66.37 (mL/min/1.73m2); Glucose 95 mg/dL (74-106); Potassium 4.3 mmol/L (3.5-5.1); Sodium 139 mmol/L (136-145); Total Protein 7.5 g/dL (6.4-8.2)
--- OUTSIDE RECORDS SUMMARY | 2023-02-28 16:16 | XMS_ITS ---
Author Name Francesco Crowder Address [address], [place] [id number] [facility] Address [address], [place] [id number] Care Team Providers Care Refined Syrup Operator Name Role Phone Francesco Crowder Unavailable [phone] PROBLEMS Type Condition ICD9-CM Code JMD42-ES Code Onset Dates Condition Status SNOMED Code Problem Retention of urine, unspecified 788.20 Active 205680770 Problem Mixed anxiety and depressive disorder F41.8 Active 370640444 Problem Nausea 787.03 Active 853199663 Problem URIN TRACT INFECTION NOS 599.0 Active 43559611 Problem Weight Loss 783.21 Active 29907306 Problem Anorexia 783.0 Active 26761982 Problem Epigastric abdominal pain 789.06 Active 82262961 Problem Nausea vomiting and diarrhea 787.91 Active 09169232 Problem Gastritis, Helicobacter pylori 041.86 Active 48778851 Problem Recurrent UTI N39.0 Active 818858682 Problem 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 Active 102063389 Problem IUD (intrauterine device) in place Z97.5 Active 142331458 Problem Acute esophagitis K20.90 Active 480009 006 Problem Acne, unspecified acne type L70.9 Active 82472276 Problem Urinary retention with incomplete bladder emptying R33.9 Active 944499372 Problem Gastropathy 537.9 Active 57118335 Problem Major depressive disorder, single episode, unspecified F32.9 Active 85994243 Problem depression, condition O90.6 Active Problem Irritable bowel syndrome with diarrhea K58.0 Active 065803219 Problem Anxiety F41.9 Active 62975841 Problem Reactive depression F32.9 Active ALLERGIES Substance Reaction Event Type Date Status Macrobid rash Drug Allergy 09 Jun, 2022 Active ENCOUNTERS Encounter Location Date Diagnosis [address] [place] [id number] 09 Jun, 2022 Dysuria R30.0 ; Vaginal discharge N89.8 ; Encounter for screening for malignant neoplasm of cervix Z12.4 ; Encounter for screening for infections with a predominantly sexual mode of transmission Z11.3 ; Pelvic pain R10.2 ; Urinary retention with incomplete bladder emptying R33.9 ; IUD (intrauterine device) in place Z97.5 and 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 [facility] [address] [place] [address] [id number] Jun, Major depressive disorder, single episode, unspecified F32.9 [facility] [address] [place] [address] [id number] May, [facility] [address] [place] [address] [id number] May, [facility] [address] [place] [address] [id number] May, Major depressive disorder, single episode, unspecified F32.9 ; Anxiety F41.9 and Atypical chest pain R07.[address] [id number] Apr, [facility] [address] [place] [address] [id number] Apr, [facility] [address] [place] [address] [id number] February, [facility] [address] [place] [address] [id number] February, [facility] [address] [place] [address] [id number] Jan, [facility] [address] [place] [address] [id number] 15 Jan, 2022 Palpitations R00.2 ; Dizziness R42 and Encounter for screening mammogram for malignant neoplasm of breast Z12.31 [facility] [address] [place] [address] [id number] Jan, [facility] [address] [place] [address] [id number] Jan, [address] [id number] Dec, [address] [id number] Dec, [address] [id number] Dec, [address] [id number] Oct, [facility] [address] [id number] Oct, SARS-CoV-2 positive U07.[address] [id number] Oct, [address] [id number] Aug, [address] [id number] Aug, [address] [id number] Aug, Dysuria R30.0 and IUD surveillance Z30.431 [facility] [address] [id number] Jul, Breast cancer screening, high risk patient Z12.39 [facility] [address] [id number] Jul, [facility] [address] [id number] Jul, [address] [id number] Jun, [facility] [address] [id number] Jun, [address] [id number] Jun, Encounter for IUD removal and reinsertion Z30.433 and Encounter for screening for malignant neoplasm of cervix Z12.4 [facility] [address] [id number] Jun, Mastodynia N64.4 ; Family history of breast cancer in female Z80.3 and Breast cancer screening, high risk patient Z12.[address] [id number] 09 Jun, [address] [id number] 09 Jun, [address] [id number] 09 Jun, [address] [id number] 10 May, 2021 [facility] [address] [place] [address] [id number] 24 Apr, 2021 [facility] [address] [place] [address] [id number] Apr, Encounter for pre-employment examination Z02.[address] [id number] 15 Apr, 2021 [facility] [address] [place] [address] [id number] 14 Apr, 2021 Encounter for screening laboratory testing for COVID-19 virus Z20.828 and Viral upper respiratory tract infection J06.[address] [id number] 14 Apr, [address] [id number] Apr, [facility] [address] [id number] 24 Mar, 2021 Mastodynia N64.[address] [id number] 15 Feb, 2021 [facility] [address] [place] [address] [id number] 11 Feb, 2021 Breast lump or mass N63.0 ; Hair loss L65.9 ; Reactive depression F32.9 and Parent/child conflict Z62.[address] [id number] Jan, Encounter for general adult medical examination without abnormal findings Z00.00 [facility] [address] [place] [address] [id number] Jan, Encounter for general adult medical examination without abnormal findings Z00.00 ; Acute esophagitis K20.90 ; Anxiety F41.9 and Adult acne L70.[address] [id number] Aug, [address] [id number] Jul, Vaginal discharge N89.8 and Dysuria R30.[address] [id number] May, [address] [id number] Apr, Immunity to varicella determined by serologic test Z01.[address] [id number] Apr, [address] [id number] Apr, [address] [id number] Apr, High rubella virus antibody titer R76.0 and Rubella immune Z78.[address] [id number] Dec, [address] [id number] Dec, Colicky RUQ abdominal pain R10.[address] [id number] Dec, [address] [id number] Jul, [address] [id number] Jul, Cervicalgia M54.2 and Strain of right trapezius muscle, initial encounter S46.811A [facility] [address] [place] [address] [id number] Jun, Nausea R11.[address] [facility] [address] [place] [address] [id number] Jun, [facility] [address] [place] [address] [id number] Jun, [facility] [address] [place] [address] [id number] Jun, [facility] [address] [place] [address] [id number] Jun, Nausea R11.0 [facility] [address], [place] [id number] Jun, Irritable bowel syndrome with diarrhea K58.0 ; Lower abdominal pain R10.30 and Abdominal bloating R14.0 [facility] [address] [id number] May, Nausea R11.0 [facility] [address] [id number] May, Lower abdominal pain R10.30 ; Irritable bowel syndrome with diarrhea K58.0 ; Nausea R11.0 and Abdominal bloating R14.0 [facility] [address] [place] [address] [id number] Apr, Epigastric pain R10.13 and Diarrhea, unspecified R19.7 [facility] [address] [place] [address] [id number] Mar, [facility] [address] [place] [address] [id number] Mar, Bowel habit changes R19.4 and Lower abdominal pain R10.30 [facility] [address] [place] [address] [id number] Mar, [facility] [address] [place] [address] [id number] Jan, Upper respiratory tract infection, unspecified type J06.9 [facility] [address] [place] [address] [id number] Oct, Sore throat J02.9 ; Cough R05 ; Fever, unspecified fever cause R50.9 and Left otitis media, unspecified otitis media type H66.92 [facility] 600 [facility] [address] [place] [address] [id number] Nov, Dysuria R30.0 and Unspecified condition associated with female genital organs and menstrual cycle N94.9 [facility] [address] [place] [address] [id number] Aug, Encounter for immunization Z23 and School 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 exam Z02.0 [facility] [address], [place] [id number] Aug, [facility] [address] [place] [address] [id number] Aug, Francesco Crowder MD [address] [place] [address] [id number] Sep, Candidiasis, unspecified B37.9 Francesco Crowder MD [address] [place] [address] [id number] Sep, Encounter for routine follow-up Z39.2 ; 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 ; Recurrent UTI N39.0 ; Encounter for screening for malignant neoplasm of cervix Z12.4 and depression, condition O90.6 Francesco Crowder MD [address] [place] [address] [id number] Jul, Encounter for routine follow-up Z39.2 and Dysuria R30.0 Francesco Crowder MD [address] [place] [address] [id number] Jul, Encounter for supervision of other normal , third trimester Z34.83 and 39 weeks gestation of Z3A.39 Francesco Crowder MD [address] [place] [address] [id number] Jul, Vaginal irritation N89.8 Francesco Crowder MD [address] [place] [address] [id number] Jul, Encounter for supervision of other normal , third trimester Z34.83 and 38 weeks gestation of Z3A.38 Francesco Crowder MD [address] [place] [address] [id number] Jun, Encounter for related examination in third trimester V22.1 and Flu vaccine need V04.81 Francesco Crowder MD [address] [place] [address] [id number] Jun, Encounter for related examination in third trimester V22.1 and Transverse or oblique presentation of fetus, antepartum 652.33 Francesco Crowder MD [address] [place] [address] [id number] Jun, Encounter for supervision of normal in third trimester V22.1 Francesco Crowder MD [address] [place] [address] [id number] Jun, Abdominal pain affecting , antepartum 646.83 ; Encounter for related examination in third trimester V22.1 ; SCREEN STREP B V28.6 and Transverse or oblique presentation of fetus, antepartum 652.33 Francesco Crowder MD [address] [place] [address] [id number] Jun, Encounter for related examination in third trimester V22.1 Francesco Crowder MD [address], [place] [id number] May, Encounter for related examination in third trimester V22.1 and Traumatic injury during in third trimester 648.93 Francesco Crowder MD [address], [place] [id number] May, Encounter for related examination in third trimester V22.1 and Herpes genitalia 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 Francesco Crowder MD [address], [place] [id number] May, Encounter for related examination in third trimester V22.1 ; Acute upper respiratory infection 465.9 and Anemia affecting in third trimester 648.23 Francesco Crowder MD [address], [place] [id number] Apr, Encounter for supervision of normal in second trimester V22.1 ; Need for ruvhwcaame-nqbxxhz-kpmdk ssis (Tdap) vaccine V06.1 and Anemia affecting in third trimester 648.23 Francesco Crowder MD [address], [place] [id number] Mar, Encounter for related examination in second trimester V22.1 and Uterine size date discrepancy 649.63 Francesco Crowder MD [address], [place] [id number] February, Encounter for related examination in second trimester V22.1 ; Depression 311 and Tendonitis 726.90 Francesco Crowder MD [address], [place] [id number] Jan, Encounter for related examination in second trimester V22.1 Francesco Crowder MD [address], [place] [id number] Jan, Normal , repeat V22.1 Francesco Crowder MD [address], [place] [id number] Dec, Normal V22.1 ; Goiter 240.9 ; Cervical cancer screening V76.2 and SCREEN FOR VENERAL DIS V74.5 [facility] [address] [facility] [address] [place], [place] [id number] Nov, Francesco Crowder MD [address] [place] [address] [id number] Nov, Francesco Crowder MD [address], [place] [id number] Nov, Francesco Crowder MD [address] [place] [address] [id number] Oct, Heavy periods 626.2 ; Dyspareunia 625.0 and PRSC NTRUTR CNTRCPTV DVC V45.51 [facility] [address] [id number] Aug, [facility] [address] [id number] Aug, [facility] [address] [id number] Aug, [facility] [address] [id number] Aug, Gastritis, Helicobacter pylori 041.86 [facility] [address] [id number] 07 Aug, 2013 Epigastric abdominal pain 789.06 ; Nausea vomiting and diarrhea 787.91 ; Weight Loss 783.21 ; Gastropathy 537.9 and Esophagitis, acute 530.12 [facility] [address] [id number] Jul, [facility] [address] [id number] Jul, Epigastric abdominal pain 789.06 ; Nausea 787.03 ; Nausea vomiting and diarrhea 787.91 and Weight Loss 783.21 UNKNOWN 07 Jul, 2013 [facility] [address] [id number] Jun, [facility] [address] [id number] Jun, Nausea 787.03 ; Retention of urine, unspecified 788.20 and Anorexia 783.0 [facility] [address] [id number] Jun, [facility] [address] [id number] Jun, Retention of urine, unspecified 788.20 and URIN TRACT INFECTION NOS 599.0 [facility] [address] [id number] February, [facility] [address] [place], [place] [id number] Jul, [address] [place] [address] [id number] May, SPRAIN OF NECK 847.0 [facility] [address] [facility] [address] [place], [place] [id number] May, [address] [place], [place] [id number] May, Acute cervical sprain 847.0 [facility] [address] [place] [address] [id number] Sep, URIN TRACT INFECTION NOS 599.0 [facility] [address] [place] [address] [id number] Aug, [facility] [address] [place] [address] [id number] Aug, [facility] [address] [place] [address] [id number] Aug, Retention of urine, unspecified 788.20 and URIN TRACT INFECTION NOS 599.0 [facility] [address] [place] [address] [id number] Aug, URIN TRACT INFECTION NOS 599.0 [facility] [address] [place] [address] [id number] Aug, [address] [id number] May, [address] [id number] May, IMMUNIZATIONS Vaccine Route Administration Date Status [...] PROTEIN trace LEUKOCYTES negative CHLAMYDIA/GONOCOCCUS, by PCR ([facility] Send Out) 2022-07-05 C. trachomatis by PCR [...] PCR (Cepheid) AUTHORIZED ONLY 2021-11-07 URINE DIP ([facility]) 2021-08-28 Color yellow Clarity cloudy Glucose neg Bilirubin neg Ketones neg Specific Marion 1.000 Blood about 50 PH 1.010 Protein [...] XR SHOULDER RIGHT 2019-08-09 CELIAC DISEASE COMPREHENSIVE ([id number]) 2019-07-16 Deamidated Gliadin Abs, IgA 2 0-19 Deamidated Gliadin Abs, IgG 2 0-19 t-Transglutaminase (tTG) IgA <2 0-3 t-Transglutaminase (tTG) IgG <2 0-5 Endomysial Antibody IgA Negative Nega tive Immunoglobulin A, Qn, Serum 179 87-352 US ABDOMINAL COMPLETE 2019-05-21 FECAL LEUKO-LACTOFERRIN 2019-04-15 FECAL LACTOFERRIN NEGATIVE NEGATIVE OVA AND PARASITE ROUTINE ([id number]) 2019-04-15 Ova + Parasite Exam Final report [...] yellow Clarity clear Bilirubin Ketones neg Specific Marion Blood neg Glucose neg ph 5 Protein [...] UROGRAM ([facility]) 2009-10-05 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, 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, Med Fill/Lab Results, [...] COVID test, antibody , Medication Request, UTI, 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 UTI, sx started Friday am, cramping, buring with urination, frequency. 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 [place] [address] [facility] [phone] - [address] [facility] [place] self Josephine Roberto [id number] [employer] [address] [place] [id number] [phone] [employer] self Josephine Mejia [id number] [phone]
== END 2023-02-28 16:15 | disposition home or self-care (01) ==
LOC: LBN 16:14
PROVIDERS: PCP Family Medicine; Visit Provider Physician Assistant
DX: R10.31 Right lower quadrant pain (principal); N39.0 Urinary tract infection, site not specified
CPT/HCPCS: 80053; 87077; 85025; 87086; 87186

== ENCOUNTER 2023-06-06 08:15 | Outpatient (CLI) | payer MEDICAID, SELFPAY ==
[2023-06-06 13:32] LABS: D-Dimer 296 ng/mlFEU (<500)
== END 2023-06-06 08:16 | disposition home or self-care (01) ==
LOC: LOS 08:15
PROVIDERS: PCP Family Medicine; Referring Provider Nurse Practitioner Family; Visit Provider Nurse Practitioner Family
DX: E03.9 Hypothyroidism, unspecified (principal); M79.605 Pain in left leg
CPT/HCPCS: 36415; 84443; 85379

== ENCOUNTER 2023-07-15 17:13 | Outpatient (REF) | payer SELFPAY | END 2023-07-15 17:14 | disposition home or self-care (01) | LOC: LBN 17:13 | PROVIDERS: PCP Family Medicine; Visit Provider Nurse Practitioner Family | DX: J02.9 Acute pharyngitis, unspecified (principal) | CPT/HCPCS: 87070 ==

== ENCOUNTER 2023-08-15 04:04 | Outpatient (REF) | payer SELFPAY ==
--- OUTSIDE RECORDS SUMMARY | 2023-08-15 04:07 | XMS_ITS | Continuity of Care Document ---
Author Name Unknown Organization [facility] Ambulatory Clinics Address [address] [place] [address] Care Team Providers Care Guard Entrance Registrar Name Role Phone Yuki Yu APRN Primary Care Physician Encounter [facility] NBR [id number] Date(s): 07/14/23 - 07/14/23 [facility] Ambulatory Clinics [address] [place] [address]- [place] Encounter Diagnosis Left lower quadrant pain(Discharge Diagnosis) - 07/14/23 IUD (intrauterine device) in place(Discharge Diagnosis) - 07/14/23 Discharge Disposition: Home or Self Care Attending Physician: Luna Benson APRN Allergies, Adverse Reactions, Alerts Substance Reaction Severity Status nitrofurantoin Rash Eruption Moderate Active Macrobid Rash Moderate Active Assessment and Plan Future Appointments Future Scheduled Tests Laboratory* Comprehensive Metabolic Panel 09/26/22 * TSH w/ Rflx to Free T4 09/26/22 * Chlamydia trachomatis and Neisseria gonorrhoeae (GeneXpert) 07/08/23 * Urinalysis with Micro if Indicated and Culture if Indicated 07/08/23 Radiology* US Abdomen Limited 11/21/22 * US Abdomen Limited 11/14/22 * US Pelvic Complete 07/14/23 Immunizations Given and Recorded Vaccine Date Status Refusal Reason BCG 1 05/16/21 Recorded BCG 2 05/16/20 Recorded influenza virus vaccine, inactivated 3 09/17/16 Re corded influenza virus vaccine, inactivated 4 07/26/15 Re corded tetanus/diphth/pertuss (Tdap) adult/adol 5 05/19/15 Recorded 1Result Comment: Unit: Unknown Chimney Supervisor Brick: Alkymos 2Result Comment: Unit: Unknown Chimney Supervisor Brick: Sanofi Pasteur 3Result Comment: Unit: Unknown Chimney Supervisor Brick: GlaxoSmithKline 4Result Comment: Chimney Supervisor Brick: GlaxoSmithKline 5Result Comment: Chimney Supervisor Brick: Sanofi Pasteur Medications Adderall XR 20 mg oral capsule, extended release 20 mg 1 cap, Oral, BID, Appointment on 07/08/2023, # 60 cap, 0 Refill(s), Pharmacy: [facility], 165, cm, 05/15/23 8:58:00 EDT, Height/Length Dosing, 84, kg, 05/15/23 8:58:00 EDT, Weight Dosing Start Date: 07/09/23 Stop Date: 08/08/23 Status: Ordered amoxicillin 500 mg oral capsule 500 mg = 1 cap, Oral, TID, # 15 cap, 0 Refill(s), Pharmacy: [facility], 165, cm, 05/15/23 8:58:00 EDT, Height/Length Dosing, 84, kg, 05/15/23 8:58:00 EDT, Weight Dosing Start Date: 07/14/23 Stop Date: 07/19/23 Status: Ordered dulaglutide 4.5 mg/0.5 mL subcutaneous solution 0.5 mL =, Subcutaneous, every week, rotate injection sites, # 6.5 mL, 3 Refill(s), Pharmacy: [facility], 168, cm, 12/13/22 17:32:00 EST, Height/Length Dosing, 93, kg, 12/13/22 17:32:00 EST, Weight Dosing Start Date: 04/11/23 Stop Date: 04/05/24 Status: Ordered magnesium gluconate 500 mg oral tablet 500 mg = 1 tab, Oral, Daily, 0 Refill(s) Start Date: 07/08/23 Status: Ordered Mirena 0 Refill(s) Start Date: 09/25/22 Status: Ordered multivitamin adult, oral tablet 1 tab, Oral, Daily, 0 Refill(s) Start Date: 07/08/23 Status: Ordered propranolol 60 mg oral capsule, extended release 60 mg = 1 cap, Oral, every night at bedtime, # 90 cap, 3 Refill(s), Pharmacy: [facility], 168, cm, 12/13/22 17:32:00 EST, Height/Length Dosing, 93, kg, 12/13/22 17:32:00 EST, Weight Dosing Start Date: 03/28/23 Status: Ordered Valtrex 500 mg oral tablet 500 mg = 1 tab, Oral, Daily, # 90 tab, 2 Refill(s), Pharmacy: [facility], 165, cm, 05/15/23 8:58:00 EDT, Height/Length Dosing, 84, kg, 05/15/23 8:58:00 EDT, Weight Dosing Start Date: 07/14/23 Stop Date: 04/09/24 Status: Ordered Vitamin B12 0 Refill(s) Start Date: 05/15/23 Status: Ordered Problem List Condition Confirmation Course Effective Dates Status H ealth Status Informant Acne Confirmed Active ADHD - Attention deficit disorder with hyperactivity Confirmed Active Anxiety Confirmed Active COVID 1 Confirmed 11/08/21 Active Depression Confirmed Active Diarrhea Confirmed Active Fatty liver 2 Confirmed Active Helicobacter-associat ed gastritis Confirmed Active HSV infection Confirmed Active History of cholecystectomy 3 Confirmed Active Incomplete emptying of bladder Confirmed Active Intrauterine contraceptive device in situ Confirmed Active Irritable bowel syndrome with diarrhea Confirmed Active Loss of appetite Confirmed Active Migraine Confirmed Active Mixed anxiety and depressive disorder Confirmed Active Nausea Confirmed Active Recurrent urinary tract infection Confirmed Active Renal agenesis Confirmed Active Transitory mood disturbance Confirmed Active Urinary retention Confirmed Active Urinary tract infectious disease Confirmed Active Weight loss Confirmed Active 1mild resp symptoms 2US 05/21/19: Findings suggesting mild hepatic steatosis. 3s/p Lap cholecystectomy and umbilical hernia repair Dr. Paige [facility] 12/20/22 Procedures Procedure Date Related Diagnosis Body Site Status Cholecystectomy Laparoscopy 1 12/20/22 Completed Colonoscopy 2 06/2019 Completed EGD (esophagogastroduodenosc opy) gastric outlet reduction 09/01/13 Complet ed History of surgery 3 Comp leted 1auto-populated from documented surgical case 2benign findings date 06/2019 3cyst removal on hand Unknown Date Results Laboratory List Name Date .Urinalysis POCT 07/14/23 Urine Qual POCT 07/14/23 Most recent to oldest [Reference Range]: 1 Method of Collect POC clean catch *NA* (07/14/23 10:30 AM) Specific [place], Ur POC 1.025 *NA* (07/14/23 10:30 AM) Specimen Color POC [Yellow] Dark Yellow *ABN* (07/14/23 10:30 AM) Glucose, Urine POC Negative mg/dL *NA* (07/14/23 10:30 AM) Bilirubin, Urine POC [Negative] Negative (07/14/23 10:30 AM) Ketones, Urine POC [Negative mg/dL] Nega tive mg/dL (07/14/23 10:30 AM) Blood, Urine POC [Negative] Trace *ABN* (07/14/23 10:30 AM) pH, Urine POC 5.00 *NA* (07/14/23 10:30 AM) Protein, Urine POC [Negative mg/dL] Trac e mg/dL *ABN* (07/14/23 10:30 AM) Urobilinogen, Urine POC [0.2] 0.2 (07/14/23 10:30 AM) Nitrite, Urine POC [Negative] Positive *ABN* (07/14/23 10:30 AM) Leuk Esterase, Urine POC [Negative] Trac e *ABN* (07/14/23 10:30 AM) Clarity, Urine POC [Clear] Cloudy *ABN* (07/14/23 10:30 AM) U Preg POCT [Negative] Negative (07/14/23 10:30 AM) Vital Signs Most recent to oldest [Reference Range]: 1 Blood Pressure [90-140/60-90 mmHg] 116/8 6mmHg (07/14/23 10:11 AM) Weight 82.7 kg (07/14/23 10:11 AM) Weight Measured (lbs) 182.322 lb (07/14/23 10:11 AM) Social History Social History Type Response Tobacco Never tobacco user T obacco Use:. Sex Physician Outpatient Note * Luna Benson APRN: PERFORM Event Display: Office Clinic Note Physician Authored Date: [id number] FEDERICO NIETO :1985 Age:38 years Sex:Female Visit Date:07/14/2023 Primary Care Physician: Yuki Yu APRN Chief Complaint has been having issues with breakthrough bleeding x 2weeks. while checking for strings felt a lump on left side of cervix and also feels tender in the left side of her pelvis. doesn't have regular cycles with IUD History of Present Illness Presents today with complaints of brownish spotting that progressed to red for a about 8-10 days then tapered back to brown spotting, along with left lower quadrant??discomfort??Also felt a lump on cervix. She has a Mirena IUD in place (3rd IUD) placed in 06/2021, and hasn't had any spotting before.Would like HSV prophylax ( [facility] pharmacy). Request labs to be done at [facility] due to cost. Review of Systems GENERAL??Overall she feels well.. /[place] [employer]??Aside from those issues noted above, the patient doesn't have any other complaints..?? Physical Exam Vitals & Measurements BP:??116/86?? WT:??82.7??kg?? GENERAL?Healthy woman appearing her age, No apparent distress, Reasonable historian.?? [facility] Pelvic Exam:?EXTERNAL GENITALIA?Labia majora and minora bilaterally are normal in appearance., Introitus is normal in external appearance..?VAGINA?Healthy rugated mucosa..?VAGINAL DISCHARGE?Thin, minimal, white discharge. ph normal.??Slide negative for BV, trich, yeast ?CERVIX?Healthy in appearance--left side of vagina. IUD strings in good position.?UTERUS?Small and normal in contours., Uterus is nontender.??Tender in the left adnexa..? Assessment/Plan 1.??Left lower quadrant pain??R10.32 Has a hx of UTI without symptoms. Since she is feeling some cramping, UA collected and positive fornitrates, blood, and leuks. Will send abx that has been used in the past as she has allergy to Macrobid (rash). She will collect urine cx at [facility]-orders in.??IUD seems to be in good position. Based on her symptoms, may have been an ovarian cyst ruptured, no bleeding/spotting today. Reviewed option of watchful waiting or pelvic US. She will see how the rest of the week progresses and schedule if discomfort persists. UPT negative. Ordered: Pelvic Complete, 07/14/23, Routine, Reason: left lower quadrant pain, Transport Mode: Ambulatory, Left lower quadrant pain ?? 2.??IUD (intrauterine device) in place??Z97.5 ?? Orders: amoxicillin 500 mg oral capsule, 500 mg = 1 cap, Oral, TID, # 15 cap, 0 Refill(s), Pharmacy: [facility], 165, cm, 05/15/23 8:58:00 EDT, Height/Length Dosing, 84, kg, 05/15/23 8:58:00 EDT, Weight Dosing Valtrex 500 mg oral tablet, 500 mg = 1 tab, Oral, Daily, # 90 tab, 2 Refill(s), Pharmacy: [facility], 165, cm, 05/15/23 8:58:00 EDT, Height/Length Dosing, 84, kg, 05/15/23 8:58:00 EDT,Weight Dosing Future Orders Pelvic Complete, 07/14/23, Routine, Reason: left lower quadrant pain, Transport Mode: Ambulatory, Left lower quadrant pain Follow Up Instructions prn Problem List/Past Medical History Ongoing Acne ADHD - Attention deficit disorder with hyperactivity Anxiety COVID Depression Diarrhea Fatty liver Helicobacter-associated gastritis History of cholecystectomy HSV infection Incomplete emptying of bladder Intrauterine contraceptive device in situ Irritable bowel syndrome with diarrhea Loss of appetite Migraine Mixed anxiety and depressive disorder Nausea Recurrent urinary tract infection Renal agenesis Transitory mood disturbance Urinary retention Urinary tract infectious disease Weight loss Historical Disorder of stomach Procedure/Surgical History ???Cholecystectomy Laparoscopy (12/20/2022)???Colonoscopy (06/2019)???EGD (esophagogastroduodenoscopy) gastric outlet reduction (09/02/2013)???History of surgery Medications Adderall XR 20 mg oral capsule, extended release, 20 mg= 1 cap, Oral, BID amoxicillin 500 mg oral capsule, 500 mg= 1 cap, Oral, TID dulaglutide 4.5 mg/0.5 mL subcutaneous solution, 0.5 mL, Subcutaneous, every week, 3 refills magnesium gluconate 500 mg oral tablet, 500 mg= 1 tab, Oral, Daily Mirena multivitamin adult, oral tablet, 1 tab, Oral, Daily propranolol 60 mg oral capsule, extended release, 60 mg= 1 cap, Oral, every night at bedtime, 3 refills Valtrex 500 mg oral tablet, 500 mg= 1 tab, Oral, Daily, 2 refills Vitamin B12 Allergies Macrobid??(Rash) nitrofurantoin??(Rash, Eruption) Social History Alcohol Current, 1-2 times per year- Comments: very rarely Electronic Cigarette/Vaping Electronic Cigarette Use: Never. Substance Use Never Tobacco Never tobacco user Tobacco Use:. Family History Diabetes mellitus: Mother. Other: Mother. Pancreatitis: Mother. Immunizations Vaccine Date Status BCG 05/16/2021 Recorded Comments : Unit: Unknown Chimney Supervisor Brick: Alkymos BCG 05/16/2020 Recorded Comments : Unit: Unknown Chimney Supervisor Brick: Sanofi Pasteur influenza virus vaccine, inactivated 09/17/2016 Recorded Comments : Unit: Unknown Chimney Supervisor Brick: GlaxoSmmakeristKline influenza virus vaccine, inactivated 07/26/2015 Recorded Comments : Chimney Supervisor Brick: GlaxoSmithKline tetanus/diphth/pertuss (Tdap) adult/adol 05/19/2015 Recorded Comments : Chimney Supervisor Brick: [employer] Lab Results Test Name Test Result Date/Time Method of Collect POC clean catch 07/14/2023 10:30 EDT Specimen Color POC Dark Yellow 07/14/2023 10:30 EDT Clarity, Urine POC Cloudy 07/14/2023 10:30 EDT Glucose, Urine POC Negative 07/14/2023 10:30 EDT Bilirubin, Urine POC Negative 07/14/2023 10:30 EDT Ketones, Urine POC Negative 07/14/2023 10:30 EDT Specific [place], Ur POC 1.025 07/14/2023 10:30 EDT pH, Urine POC 5.00 07/14/2023 10:30 EDT Protein, Urine POC Trace 07/14/2023 10:30 EDT Urobilinogen, Urine POC 0.2 07/14/2023 10:30 EDT Nitrite, Urine POC Positive 07/14/2023 10:30 EDT Blood, Urine POC Trace 07/14/2023 10:30 EDT Leuk Esterase, Urine POC Trace 07/14/2023 10:30 EDT U Preg POCT Negative 07/14/2023 10:30 EDT Electronically Signed on 07/14/23 03:29 PM Luna Benson APRN Patient Care team information Care Team Personnel Name: Yuki Yu APRN Position: Physician Member Role: Primary Care Physician Address: Address: [address] [place] [id number] [place] Care Team Related Persons Name: BUZZ ENGEL Address: Home [address] [place] [phone] [facility] Address: Mailing [address] [place] [phone] Name: NEY NIETO
--- OUTSIDE RECORDS SUMMARY | 2023-08-15 04:07 | XMS_ITS | Continuity of Care Document ---
Author Name Unknown Organization [facility] Ambulatory Clinics Address [address] [place] [address] Care Team Providers Care Financial Professional Name Role Phone Yuki Yu APRN Primary Care Physician Encounter [facility] [facility] NBR [id number] Date(s): 07/08/23 - 07/08/23 [facility] Ambulatory Clinics [address] [place] [address]- Encounter Diagnosis Establishing care with new doctor, encounter for(Discharge Diagnosis) - 07/08/23 ADHD - Attention deficit disorder with hyperactivity(Discharge Diagnosis) - 07/08/23 Incomplete emptying of bladder(Discharge Diagnosis) - 07/08/23 Mixed anxiety and depressive disorder(Discharge Diagnosis) - 07/08/23 Possible exposure to STD(Discharge Diagnosis) - 07/08/23 Spotting(Discharge Diagnosis) - 07/08/23 Vaginal discharge(Discharge Diagnosis) - 07/08/23 Suprapubic pain(Discharge Diagnosis) - 07/08/23 Recurrent urinary tract infection(Discharge Diagnosis) - 07/08/23 At high risk for breast cancer(Discharge Diagnosis) - 07/08/23 Discharge Disposition: Home or Self Care Attending Physician: Yuki Yu APRN Allergies, Adverse Reactions, Alerts Substance Reaction [...] * US Abdomen Limited 11/14/22 Functional Status 07/08/23 Other exposure to Infectious Disease Non e Immunizations Given and Recorded Vaccine Date Status Refusal Reason BCG 1 05/16/21 Recorded BCG 2 05/16/20 Recorded influenza virus vaccine, inactivated 3 09/17/16 Re corded influenza virus vaccine, inactivated 4 07/26/15 Re corded tetanus/diphth/pertuss (Tdap) adult/adol 5 05/19/15 Recorded 1Result Comment: Unit: Unknown Pharmacy Benefit Manager: [employer] 2Result Comment: Unit: Unknown Pharmacy Benefit Manager: Sanofi Pasteur 3Result Comment: Unit: Unknown Pharmacy Benefit Manager: GlaxoSmithKline 4Result Comment: Pharmacy Benefit Manager: GlaxoSmithKline 5Result Comment: Pharmacy Benefit Manager: Sanofi Pasteur Medications Adderall XR 20 mg oral capsule, extended release 20 mg 1 cap, Oral, BID, Appointment on 07/08/2023, # 60 cap, 0 Refill(s), Pharmacy: [facility], 165, cm, 05/15/23 8:58:00 EDT, Height/Length Dosing, 84, kg, 05/15/23 8:58:00 EDT, Weight Dosing Start Date: 07/09/23 Stop Date: 08/08/23 Status: Ordered dulaglutide 4.5 mg/0.5 mL subcutaneous solution 0.5 mL =, Subcutaneous, every week, rotate injection sites, # 6.5 mL, 3 Refill(s), Pharmacy: [facility], 168, cm, 12/13/22 17:32:00 EST, Height/Length [...] bedtime, # 90 cap, 3 Refill(s), Pharmacy: [facility], 168, cm, 12/13/22 17:32:00 EST, Height/Length Dosing, 93, kg, 12/13/22 17:32:00 EST, Weight Dosing Start Date: 03/28/23 Status: Ordered Vitamin B12 0 Refill(s) Start Date: 05/15/23 Status: Ordered Problem List Condition Confirmation Course Effective Dates Status H ealth Status Informant Acne Confirmed Active ADHD - Attention deficit disorder with hyperactivity Confirmed Active Anxiety Confirmed Active COVID 1 Confirmed 11/08/21 Active Depression Confirmed Active Diarrhea Confirmed Active Fatty liver 2 Confirmed Active Helicobacter-associat ed gastritis Confirmed Active History of cholecystectomy 3 Confirmed [...] cholecystectomy and umbilical hernia repair Dr. Paige [facility] 12/20/22 Procedures Procedure Date Related Diagnosis Body Site Status Cholecystectomy Laparoscopy 1 12/20/22 Completed Colonoscopy 2 06/2019 Completed EGD (esophagogastroduodenosc opy) gastric outlet reduction 09/01/13 Complet ed History of surgery 3 Comp leted 1auto-populated from documented surgical case 2benign findings date 06/2019 3cyst removal on hand Unknown Date Vital Signs Most recent to oldest [Reference Range]: 1 Peripheral Pulse Rate [60-100 bpm] 87 bp m (07/08/23 8:03 AM) Blood Pressure [90-140/60-90 mmHg] 114/7 6mmHg (07/08/23 8:03 AM) Weight 82.1 kg (07/08/23 8:03 AM) Weight Measured (lbs) 180.999 lb (07/08/23 8:03 AM) [place] Body Weight Calculated 56.909 kg (07/08/23 8:03 AM) Height 165 cm (07/08/23 8:03 AM) Height/Length Measured (inches) 64.96 in (07/08/23 8:03 AM) BSA Measured 1.94 m2 (07/08/23 8:03 AM) Body Mass Index 30.16 kg/m2 (07/08/23 8:03 AM) Social History Social History Type Response Tobacco Never tobacco user T obacco Use:. Sex Patient Care team information Care Team Personnel Name: Yuki Yu APRN Position: Physician Member Role: Primary Care Physician Address: Address: [address] [place] [phone] Care Team Related Persons Name: BUZZ ENGEL Address: Home [address] [place], [place] [phone] [facility] Address: Mailing [address] [place] [phone] Name: NEY NIETO
--- OUTSIDE RECORDS SUMMARY | 2023-08-15 04:07 | XMS_ITS | Continuity of Care Document ---
Author Name Unknown Organization [facility] Ambulatory Clinics Address [address] [place] [address] Care Team Providers Care Cadd Instructor Name Role Phone Yuki Yu APRN Primary Care Physician [phone] Encounter [facility] [facility] NBR [id number] Date(s): 07/09/23 - 07/09/23 [facility] Ambulatory Clinics [address] [place] [address]- [place] Discharge Disposition: Home Allergies, Adverse Reactions, Alerts Substance Reaction Severity [...] 5 05/19/15 Recorded 1Result Comment: Unit: Unknown Automotive Parts Manager: [employer] 2Result Comment: Unit: Unknown Automotive Parts Manager: Sanofi Pasteur 3Result Comment: Unit: Unknown Automotive Parts Manager: GlaxoSmithKline 4Result Comment: Automotive Parts Manager: GlaxoSmithKline 5Result Comment: Automotive Parts Manager: Sanofi Pasteur Medications Adderall XR 20 mg oral capsule, extended release 20 mg 1 cap, Oral, BID, Appointment on 07/08/2023, # 60 cap, 0 Refill(s), Pharmacy: [facility], 165, cm, 05/15/23 8:58:00 EDT, Height/Length Dosing, 84, kg, 05/15/23 8:58:00 EDT, Weight Dosing Start Date: 07/09/23 Stop Date: 08/08/23 Status: Ordered dulaglutide 4.5 mg/0.5 mL subcutaneous solution 0.5 mL =, Subcutaneous, every week, rotate injection sites, # 6.5 mL, 3 Refill(s), Pharmacy: [facility], 168, cm, 12/13/22 17:32:00 EST, Height/Length [...] cholecystectomy and umbilical hernia repair Dr. [facility] 12/20/22 Procedures Procedure Date Related Diagnosis Body Site Status Cholecystectomy Laparoscopy 1 12/20/22 Completed Colonoscopy 2 06/2019 Completed EGD (esophagogastroduodenosc opy) gastric outlet reduction 09/01/13 Complet ed History of surgery 3 Comp leted 1auto-populated from documented surgical case 2benign findings date 06/2019 3cyst removal on hand Unknown Date Social History Social History Type Response Tobacco Never tobacco user T obacco Use:. Sex Patient Care team information Care Team Personnel Name: Yuki Yu APRN Position: Physician Member Role: Primary Care Physician Address: Address: [address] [place] [phone] Care Team Related Persons Name: BUZZ ENGEL Address: Home [address] [place], [place] [phone] [facility] Address: Mailing [address] [place], [place] [phone] Name: NEY NIETO
--- OUTSIDE RECORDS SUMMARY | 2023-08-15 04:07 | XMS_ITS | Continuity of Care Document ---
Author Name Unknown Organization [facility] Ambulatory Clinics Address [address] [place] [address] Care Team Providers Care Mercury Washer Name Role Phone Itabrandonswapna Dede Primary Care Physician Encounter [facility] NBR [id number] Date(s): 03/28/23 - 03/28/23 [facility] Ambulatory Clinics [address] [place] [address]- [place] Encounter Diagnosis Acne(Discharge Diagnosis) - 03/28/23 Urinary retention with incomplete bladder emptying(Discharge Diagnosis) - 03/28/23 ADHD - Attention deficit disorder with hyperactivity(Discharge Diagnosis) - 03/28/23 Acne(Discharge Diagnosis) - 03/28/23 Anxiety(Discharge Diagnosis) - 03/28/23 Intrauterine contraceptive device in situ(Discharge Diagnosis) - 03/28/23 Urinary retention(Discharge Diagnosis) - 03/28/23 Recurrent urinary tract infection(Discharge Diagnosis) - 03/28/23 Migraine(Discharge Diagnosis) - 03/28/23 Discharge Disposition: Home or Self Care Attending Physician: Nancy Jade MD Referring Physician: Nancy Jade MD Allergies, Adverse Reactions, Alerts Substance Reaction Severity Status nitrofurantoin Rash Eruption Moderate Active Macrobid Rash Moderate Active Assessment and Plan Future Appointments Future Scheduled Tests Laboratory* Comprehensive Metabolic Panel 09/26/22 * TSH w/ Rflx to Free T4 09/26/22 Radiology* US Abdomen Limited 11/21/22 * US Abdomen Limited 11/14/22 Functional Status 03/28/23 Other exposure to Infectious Disease Non e Immunizations Given and Recorded Vaccine Date Status Refusal Reason BCG 1 05/16/21 Recorded BCG 2 05/16/20 Recorded influenza virus vaccine, inactivated 3 09/17/16 Re corded influenza virus vaccine, inactivated 4 07/26/15 Re corded tetanus/diphth/pertuss (Tdap) adult/adol 5 05/19/15 Recorded 1Result Comment: Unit: Unknown Lacquer Sizer: [employer] 2Result Comment: Unit: Unknown Lacquer Sizer: Sanofi Pasteur 3Result Comment: Unit: Unknown Lacquer Sizer: GlaxoSmithKline 4Result Comment: Lacquer Sizer: GlaxoSmithKline 5Result Comment: Lacquer Sizer: Sanofi Pasteur Medications Accutane 80 mg =, Oral, Si mg Oral daily, 0 Refill(s) Start Date: 02/03/23 Status: Ordered Adderall XR 20 mg oral capsule, extended release 20 mg 1 cap, Oral, BID, # 60 cap, 0 Refill(s), Pharmacy: [facility] #93, 168, cm, 12/13/22 17:32:00 EST, Height/Length Dosing, 93, kg, 12/13/22 17:32:00 EST, Weight Dosing Start Date: 03/28/23 Stop Date: 04/27/23 Status: Ordered dulaglutide 1.5 mg/0.5 mL subcutaneous solution See Instructions, 1.0 ml Subcutaneous every week 30 days, use 2 injections of 0.5 ml each week, # 4mL, 3 Refill(s), Pharmacy: [facility] #93, 168, cm, 12/13/22 17:32:00 EST, Height/Length Dosing, 93, kg, 12/13/22 17:32:00 EST, Weight Dosing Start Date: 12/19/22 Status: Ordered Mirena 0 Refill(s) Start Date: 09/25/22 Status: Ordered propranolol 60 mg oral capsule, extended release 60 mg = 1 cap, Oral, every night at bedtime, # 90 cap, 3 Refill(s), Pharmacy: [facility] #93, 168, cm, 12/13/22 17:32:00 EST, Height/Length Dosing, 93, kg, 12/13/22 17:32:00 EST, Weight Dosing Start Date: 03/28/23 Status: Ordered tamsulosin 0.4 mg oral capsule 0.4 mg = 1 cap, Oral, Daily, # 30 cap, 11 Refill(s), Pharmacy: [facility] #93, 168, cm, 12/13/22 17:32:00 EST, Height/Length Dosing, 93, kg, 12/13/22 17:32:00 EST, Weight Dosing Start Date: 03/28/23 Status: Ordered Trulicity Pen 3 mg/0.5 mL subcutaneous solution 3 mg = 0.5 mL, Subcutaneous, every week, rotate injection sites, # 7.5 mL, 3 Refill(s), Pharmacy: [facility] #93, 168, cm, 12/13/22 17:32:00 EST, Height/Length Dosing, 93, kg, 12/13/22 17:32:00 EST, Weight Dosing Start Date: 03/28/23 Status: Ordered Problem List Condition Confirmation Course [...] cholecystectomy and umbilical hernia repair Dr. Paige [facility] 12/20/22 Procedures Procedure Date Related [...] Deg C] 3 6.4 Deg C *LOW* (03/28/23 3:02 PM) Peripheral Pulse Rate [60-100 bpm] 93 bp m (03/28/23 3:02 PM) Blood Pressure [90-140/60-90 mmHg] 118/8 0mmHg (03/28/23 3:02 PM) Weight 89.6 kg (03/28/23 3:02 PM) Weight Measured (lbs) 197.534 lb (03/28/23 3:02 PM) [place] Body Weight Calculated 57 kg (03/28/23 3:02 PM) Height 165.1 cm (03/28/23 3:02 PM) Height/Length Measured (inches) 65 inch (03/28/23 3:02 PM) BSA Measured 2.03 m2 (03/28/23 3:02 PM) Body Mass Index 32.87 kg/m2 (03/28/23 3:02 PM) Social History Social History Type Response Tobacco Never tobacco user T obacco Use:. Sex Physician Outpatient Note * Nancy Jade MD: PERFORM Event Display: Office Clinic Note Physician Authored Date: [id number] FEDERICO NIETO :1985 Age:38 years Sex:Female Visit Date:03/28/2023 Primary Care Physician: Dede Soto Chief Complaint Med review History of Present Illness ??Roberto is a??38 year old WHITE female who is here??for a routine visit to review her meds.?? We discussed her medications, labs, diagnostics, and active problems mentioned below. Review of Systems Constitutional: She denies fever, chills, fatigue or unusual weight loss. Cardiovascular: She denies chest pain, palpitations or syncopal episodes.?? Respiratory: She has no dyspnea, no cough productive of phlegm, no orthopnea or hemoptysis. Gastrointestinal: No nausea, vomiting, diarrhea, or abdominal pain. No blood in her stool.?? Urologic: No urgency, no dysuria, no blood in her urine, no kidney stones.?? Female Reproductive: No abnormal vaginal discharge. No heavy periods. No irregular menses.?? Musculoskeletal: No muscle weakness. Unremarkable. Neurological: No WOLFE, confusion, or dizziness; no numbness or tingling; no difficulty speaking or swallowing. Physical Exam Vitals & Measurements T:??36.4?C ??(Tympanic)?? HR:??93??(Peripheral)?? BP:??118/80?? SpO2:??99%?? HT:??165.1??cm?? WT:??89.6??kg?? BMI:??32.87?? BSA:??2.03?? General: Comfortable, showing no signs of acute distress. HEENT: PERRL, EOMI, Anicteric, No arcus senilis. OP clear, No dentures. Hearing intact. No hearing aids.?? No facial asymmetry. Neck: Supple. No JVD. No carotid bruits. No cervical, submandibular or supraclavicular lymphadenopathy.?? No thyromegaly. Lungs: Clear. No wheezes, no rales, no rhonchi. Heart: Regular. No Murmurs, rubs or gallops. Chest: No use of accessory muscles in breathing.?? Abdomen: Soft, Nontender. Bowel sounds present. Lap ccy scars. Back: No CVAT. No kyphosis. No scoliosis. Extremities: No pretibial/ankle edema. Palpable DP pulses BL. FROM. Skin: No rashes or bruises. Warm and dry. No jaundice. Neurologic: egg packer 2-12 intact. Good strength BL U/L extremities. Ambulates w/o assist. No focal motoror?? sensory deficits. Psych: A&Ox3. Mood and affect appropriate. No unusual anxiety or evidence of depression. ?? Assessment/Plan 1.??ADHD - Attention deficit disorder with hyperactivity??F90.9 ?? 2.??Acne??L70.0 ?? 3.??Anxiety??F41.9 ?? 4.??Intrauterine contraceptive device in situ??Z97.5 ?? 5.??Urinary retention??R33.9,??Urinary retention with incomplete bladder emptying??R33.9 Tamsulosin 0.4mg daily Ordered: tamsulosin 0.4 mg oral capsule, 0.4 mg = 1 cap, Oral, Daily, # 30 cap, 11 Refill(s), Pharmacy: [facility] #93, 168, cm, 12/13/22 17:32:00 EST, Height/Length Dosing, 93, kg, 12/13/22 17:32:00 EST, Weight Dosing ?? 6.??Recurrent urinary tract infection??N39.0 ?? 7.??Migraine??G43.909 ?? Acne??L70.9 Dermatology consult ?? Orders: Adderall XR 20 mg oral capsule, extended release, 20 mg 1 cap, Oral, BID, # 60 cap, 0 Refill(s), Pharmacy: [facility] #93, 168, cm, 12/13/22 17:32:00 EST, Height/Length Dosing, 93, kg, 12/13/22 17:32:00 EST, Weight Dosing Trulicity Pen 3 mg/0.5 mL subcutaneous solution, 3 mg = 0.5 mL, Subcutaneous, every week, rotate injection sites, # 7.5 mL, 3 Refill(s), Pharmacy: [facility] #93, 168, cm, 12/13/22 17:32:00 EST, Height/Length Dosing, 93, kg, 12/13/22 17:32:00 EST, Weight Dosing propranolol 60 mg oral capsule, extended release, 60 mg = 1 cap, Oral, every night at bedtime, # 90cap, 3 Refill(s), Pharmacy: [facility] #93, 168, cm, 12/13/22 17:32:00 EST, Height/Length Dosing,93, kg, 12/13/22 17:32:00 EST, Weight Dosing ?? 1.?? Weight loss Trulicity Pen 3 mg Subcutaneous every week ?? 2. Intrauterine contraceptive device in situ Mirena (levonorgestrel) ?? 3. Depression Fluoxetine 40mg daily---stopped 2 months ago ?? 4. ADHD Adderall XR 20mg BID ?? 5. Recurrent UTI/Urinary retention No antibiotics at this time---gets UTI 1x/year Trial of Tamsulosin 0.4mg daily ?? 5. Acne sees [facility] Accutane 80mg??daily---holding due to sun exposure Referrral to Dermatology ?? 6.?? CRC screening? Colonoscopy 06/2019 ?? 7. Migraine MagOxide 400mg daily B2 200mg BID Propranolol ER 60mg QHS ?? Referral Orders Referral Management, Medical Service: Dermatology, Reason: wants to see [facility] wants an Alternative to ACCUTANE because of summer sun exposure, Start: 03/28/23 Problem List/Past Medical History Ongoing Acne ADHD - Attention deficit disorder with hyperactivity Anxiety COVID Depression Diarrhea Fatty liver Helicobacter-associated gastritis History of cholecystectomy Incomplete emptying of bladder Intrauterine contraceptive device [...] surgery Medications Accutane, 80 mg, Oral Adderall XR 20 mg oral capsule, extended release, 20 mg= 1 cap, Oral, BID dulaglutide 1.5 mg/0.5 mL subcutaneous solution, See Instructions, 3 refills Mirena propranolol 60 mg oral capsule, extended release, 60 mg= 1 cap, Oral, every night at bedtime, 3 refills tamsulosin 0.4 mg oral capsule, 0.4 mg= 1 cap, Oral, Daily, 11 refills Trulicity Pen 3 mg/0.5 mL subcutaneous solution, 3 mg= 0.5 mL, Subcutaneous, every week, 3 refills Allergies Macrobid??(Rash) nitrofurantoin??(Rash, Eruption) Social History Alcohol Current, 1-2 times per month Electronic Cigarette/Vaping Electronic Cigarette Use: Never. Substance Use Never Tobacco Never tobacco user Tobacco Use:. Family History Diabetes mellitus: Mother. Other: Mother. Pancreatitis: Mother. Immunizations Vaccine Date Status BCG 05/16/2021 Recorded Comments : Unit: Unknown Lacquer Sizer: [employer] BCG 05/16/2020 Recorded Comments : Unit: Unknown Lacquer Sizer: Sanofi Pasteur influenza virus vaccine, inactivated 09/17/2016 Recorded Comments : Unit: Unknown Lacquer Sizer: GlaxoSmithKline influenza virus vaccine, inactivated 07/26/2015 Recorded Comments : Lacquer Sizer: GlaxoSmithKline tetanus/diphth/pertuss (Tdap) adult/adol 05/19/2015 Recorded Comments : Lacquer Sizer: Sanofi Pasteur Electronically Signed on 03/28/23 03:42 PM Nancy Jade MD Patient Care team information Care Team Personnel Name: Dede Soto Position: Physician Member Role: Primary Care Physician Address: Address: [address] [place] [address] [address] [place], [place] [address] Care Team Related Persons Name: BUZZ ENGEL Address: Home [address] [place] [phone] [facility] Address: Mailing [address] [place] [phone] Name: NEY NIETO
--- OUTSIDE RECORDS SUMMARY | 2023-08-15 04:07 | XMS_ITS | Continuity of Care Document ---
Author Name Unknown Organization [facility] Ambulatory Clinics Address [address] [place] [address] Care Team Providers Care Requirements Engineer Name Role Phone Dede Soto Primary Care Physician [phone] Encounter [id number] NBR [id number] Date(s): 03/19/23 - 03/19/23 [facility] Ambulatory Clinics [address] [place] [address]- Discharge Disposition: Home Allergies, Adverse Reactions, Alerts [...] 5 05/19/15 Recorded 1Result Comment: Unit: Unknown Metal Weather Stripper: [facility] 2Result Comment: Unit: Unknown Metal Weather Stripper: Sanofi Pasteur 3Result Comment: Unit: Unknown Metal Weather Stripper: Gl[employer] 4Result Comment: Metal Weather Stripper: [employer] 5Result Comment: Metal Weather Stripper: Sanofi Pasteur Medications Accutane 80 mg =, Oral, Si mg Oral daily, 0 Refill(s) Start Date: 02/03/23 Status: Ordered Adderall 10 mg oral tablet 10 mg 1 tab, Oral, Daily, Take in the afternoon., # 30 tab, 0 Refill(s), Pharmacy: [facility] #93, 168, cm, 12/13/22 17:32:00 EST, Height/Length Dosing, 93, kg, 12/13/22 17:32:00 EST, Weight Dosing Start Date: 02/05/23 Stop Date: 03/07/23 Status: Ordered Adderall XR 20 mg oral capsule, extended release 20 mg 1 cap, Oral, every morning, # 30 cap, 0 Refill(s), Pharmacy: [facility] #93, 168, cm, 12/13/22 17:32:00 EST, Height/Length Dosing, 93, kg, 12/13/22 17:32:00 EST, Weight Dosing Start Date: 02/05/23 Stop Date: 03/07/23 Status: Ordered dulaglutide 1.5 mg/0.5 mL subcutaneous solution See Instructions, 1.0 ml Subcutaneous every week 30 days, use 2 injections of 0.5 ml each week, # 4mL, 3 Refill(s), Pharmacy: [facility] #93, 168, cm, 12/13/22 17:32:00 EST, Height/Length Dosing, 93, kg, 12/13/22 17:32:00 EST, Weight Dosing Start Date: 12/19/22 Status: Ordered FLUoxetine 20 mg oral tablet 40 mg = 2 tab, Oral, Daily, # 180 tab, 3 Refill(s), Pharmacy: [facility] Start Date: 09/26/22 Stop Date: 09/21/23 [...] forms, # 10 tab, 0 Refill(s), Pharmacy: [facility] #93, 167.64, cm, 11/24/22 4:40:00 EST, Height/Length [...] Member Role: Primary Care Physician Address: Address: [address] [place] [address] [address] Care Team Related Persons Name: BUZZ ENGEL Address: Home [address] [place], [place] [id number] [facility] Address: Mailing [address] [place], [place] [id number] Name: NEY NIETO
--- OUTSIDE RECORDS SUMMARY | 2023-08-15 04:07 | XMS_ITS | Continuity of Care Document ---
Author Name Unknown Organization [facility] Address [address] [place] [address] Care Team Providers Care Tableau Architect Name Role Phone John Rizo DO Primary Care Physician Encounter [facility] NBR [id number] Date(s): 05/15/23 - 05/15/23 [facility] [address] [place] [address]- Encounter Diagnosis Iritis(Discharge Diagnosis) - 05/15/23 Discharge Disposition: Home or Self Care Attending Physician: John Quigley MD Admitting Physician: John Quigley MD Allergies, Adverse Reactions, Alerts Substance Reaction Severity Status nitrofurantoin Rash Eruption Moderate Active Macrobid Rash Moderate Active Assessment and Plan Future Appointments Future Scheduled Tests Laboratory* Comprehensive Metabolic Panel 09/26/22 * TSH w/ Rflx to Free T4 09/26/22 Radiology* US Abdomen Limited 11/21/22 * US Abdomen Limited 11/14/22 Functional Status 05/15/23 Family Member Travel History No recent t ravel Recent Travel History No recent travel Other exposure to Infectious Disease Non e Immunizations Given and Recorded Vaccine Date Status Refusal Reason BCG 1 05/16/21 Recorded BCG 2 05/16/20 Recorded influenza virus vaccine, inactivated 3 09/17/16 Re corded influenza virus vaccine, inactivated 4 07/26/15 Re corded tetanus/diphth/pertuss (Tdap) adult/adol 5 05/19/15 Recorded 1Result Comment: Unit: Unknown Validation Intern: [employer] 2Result Comment: Unit: Unknown Validation Intern: Sanofi Pasteur 3Result Comment: Unit: Unknown Validation Intern: Gl[employer]oSmithKline 4Result Comment: Validation Intern: Glaxo[employer]Kline 5Result Comment: Validation Intern: Sanofi Pasteur Medications Adderall XR 20 mg oral capsule, extended release 20 mg 1 cap, Oral, BID, # 60 cap, 0 Refill(s), [facility]acy: [facility], 168, cm, 12/13/22 17:32:00 EST, Height/Length Dosing, 93, kg, 12/13/22 17:32:00 EST, Weight Dosing Start Date: 03/28/23 Stop Date: 04/27/23 Status: Ordered dulaglutide 4.5 mg/0.5 mL subcutaneous solution 0.5 mL =, Subcutaneous, every week, rotate injection sites, # 6.5 mL, 3 Refill(s), [facility], 168, cm, 12/13/22 17:32:00 EST, Height/Length Dosing, 93, kg, 12/13/22 17:32:00 EST, Weight Dosing Start Date: 04/11/23 Stop Date: 04/05/24 Status: Ordered magnesium carbonate-calcium carbonate 0 Refill(s) Start Date: 05/15/23 Status: Ordered Mirena 0 Refill(s) Start Date: 09/25/22 Status: Ordered propranolol 60 mg oral capsule, extended release 60 mg = 1 cap, Oral, every night at bedtime, # 90 cap, 3 Refill(s), [facility]acy: [facility], 168, cm, 12/13/22 17:32:00 EST, Height/Length Dosing, 93, kg, 12/13/22 17:32:00 EST, Weight Dosing Start Date: 03/28/23 Status: Ordered tamsulosin 0.4 mg oral capsule 0.4 mg = 1 cap, Oral, Daily, # 30 cap, 11 Refill(s), Pharmacy: [facility], 168, cm, 12/13/22 17:32:00 EST, Height/Length Dosing, 93, kg, 12/13/22 17:32:00 EST, Weight Dosing Start Date: 03/28/23 Status: Ordered Trulicity Pen 0 Refill(s) Start Date: 05/15/23 Status: Ordered Vitamin B12 0 Refill(s) Start Date: 05/15/23 Status: Ordered Mental Status 05/15/23 Eye Opening Response [place] Spontaneous ly Best Verbal Response [place] Oriented Best Motor Response Jesus Obeys comman ds [place] Coma Score 15 Problem List Condition Confirmation [...] umbilical hernia repair Dr. Paige [facility] 12/20/22 Procedures Procedure Date Related Diagnosis Body Site Status Cholecystectomy Laparoscopy 1 12/20/22 Completed Colonoscopy 2 06/2019 Completed EGD (esophagogastroduodenosc opy) gastric outlet reduction 09/01/13 Complet ed History of surgery 3 Comp leted 1auto-populated from documented surgical case 2benign findings date 06/2019 3cyst removal on hand Unknown Date Results Laboratory List Name Date C-Reactive Protein 05/15/23 CBC w/ Diff 05/15/23 Comprehensive Metabolic Panel (CMP) 05/15 Magnesium Level 05/15/23 Sedimentation Rate (ESR) 05/15/23 Automated Diff 05/15/23 Most recent to oldest [Reference Range]: 1 WBC [4.8-10.8 K/mcL] 8.6 K/mcL (05/15/23 10:24 AM) RBC [4.20-5.40 Million/mcL] 4.58 Million /mcL (05/15/23 10:24 AM) Neutro Auto [42.2-75.2 %] 62.2 % (05/15/23 10:24 AM) Lymph Auto [20.5-51.1 %] 29.8 % (05/15/23 10:24 AM) Karnes Auto [1.7-9.3 %] 6.6 % (05/15/23 10:24 AM) Basophil Auto [0.0-0.8 %] 0.2 % (05/15/23 10:24 AM) BUN [8-26 mg/dL] 13 mg/dL (05/15/23 10:24 AM) Glucose Level [74-106 mg/dL] 90 mg/dL (05/15/23 10:24 AM) Potassium Level [3.5-5.1 mmol/L] 3.6 mmo l/L (05/15/23 10:24 AM) Baso Absolute [0.0-0.2 K/mcL] 0.0 K/mcL (05/15/23 10:24 AM) MCV [81.0-99.0 fL] 87.3 fL (05/15/23:24 AM) CRP [<=10.0 mg/L] <8.0 mg/L (05/15/23 10:24 AM) AST [15-41 IntlUnit/L] 17 IntlUnit/L (05/15/23:24 AM) ALT [14-54 IntlUnit/L] 14 IntlUnit/L (05/15/23:24 AM) MCHC [32.0-36.0 g/dL] 33.8 g/dL (05/15/23: AM) Osmolality [275-295 mOsm/kg] 277 mOsm/kg (05/15/23:24 AM) Sodium Level [134-143 mmol/L] 139 mmol/L (05/15/23 10:24 AM) Lymph Absolute [1.2-3.4 K/mcL] 2.6 K/mcL (05/15/23:24 AM) Hct [37.0-47.0 %] 40.0 % (05/15/23:24 AM) Calcium Level [8.9-10.3 mg/dL] 9.7 mg/dL (05/15/23:24 AM) Karnes Absolute [0.1-0.6 K/mcL] 0.6 K/mcL (05/15/23:24 AM) Albumin Level [3.5-5.0 g/dL] 4.4 g/dL (05/15/23:24 AM) Protein Total [6.5-8.1 g/dL] 7.7 g/dL (05/15/23:24 AM) MCH [27.0-31.0 pg] 29.5 pg (05/15/23:24 AM) Magnesium Level [1.8-2.5 mg/dL] 2.0 mg/d L (05/15/23 10:24 AM) Neutro Absolute [1.4-6.5 K/mcL] 5.4 K/mc L (05/15/23 10:24 AM) Bilirubin Total [0.2-1.2 mg/dL] 0.6 mg/d L (05/15/23 10:24 AM) Hgb [12.0-16.0 g/dL] 13.5 g/dL (05/15/23 10:24 AM) Alk Phos [38-130 IntlUnit/L] 52 IntlUnit /L (05/15/23 10:24 AM) MPV [7.4-10.4 fL] 9.5 fL (05/15/23 10:24 AM) Platelets [130-400 K/mcL] 302 K/mcL (05/15/23 10:24 AM) CO2 [22-32 mmol/L] 25 mmol/L (05/15/23 10:24 AM) Eos Absolute [0.0-0.2 K/mcL] 0.1 K/mcL (05/15/23 10:24 AM) Chloride Level [98-111 mmol/L] 107 mmol/ L (05/15/23 10:24 AM) RDW-CV [11.5-14.5 %] 12.6 % (05/15/23 10:24 AM) A/G Ratio 1.3 *NA* (05/15/23 10:24 AM) BUN/Creat Ratio [8.0-20.0] 12.4 (05/15/23 10:24 AM) Globulin 3.3 *NA* (05/15/23 10:24 AM) Imm Gran Absolute 0.03 *NA* (05/15/23 10:24 AM) Imm Gran Auto [0.0-0.5 %] 0.3 % (05/15/23 10:24 AM) NRBC Auto 0 *NA* (05/15/23:24 AM) NRBC Absolute 0 *NA* (05/15/23 10:24 AM) Slide Review Not Indicated (05/15/23:24 AM) Creatinine Level [0.44-1.00 mg/dL] 1.05 mg/dL *HI* (05/15/23 10:24 AM) Anion Gap [3.0-12.0] 7.0 (05/15/23 10:24 AM) Eos, Auto [0.00-3.00 %] 0.90 % (05/15/23 10:24 AM) eGFR CKD-EPI [>=60 mL/min/1.73 m2] 70 mL /min/1.73 m2 (05/15/23 10:24 AM) ESR, Westergren [0-20 mm/hr] 9 mm/hr (05/15/23 10:24 AM) Radiology Reports * Exam Date Time Procedure Performing Provider Status 05/15/23 11:[address] Orbits Sella w/ Contrast Alanna Marin; Auth (Verified) Notes: (CT Orbits Sella w/ Contrast) Reason For Exam: left eye pain, ? orbital cellulitis CT Orbits Sella w/ Contrast EXAM DESCRIPTION: CT Orbits Sella w/ Contrast 05/15/2023 INDICATION: LEFT EYE PAIN, ? ORBITAL CELLULITIS TECHNIQUE: All CT scans at this facility use at least one of these dose optimization techniques: Automated exposure control; mA and/or kV adjustment per patient size (includes targeted exams where dose is matched to clinical indication); or iterative reconstruction. CT examination of the orbits with contrast with thin section axial images including sagittal and coronal MPR images performed on a separate workstation under concurrent supervision. 100 cc of Isovue-300 contrast was utilized COMPARISON: None FINDINGS: No inflammatory stranding or abnormal enhancement in the orbit or periorbital soft tissues on either side to suggest orbital or periorbital cellulitis. No abnormal fluid collection to suggest abscess. No orbit mass or abnormal enhancement on either side. Globes appear intact bilaterally. Regional osseous structures appear intact with no acute fracture, focal lytic or sclerotic lesion Polypoid mucosal thickening or retention cyst formation in the anterior aspect of the right maxillary sinus with mild right ethmoid and right sphenoid sinus mucosal thickening. Remaining paranasal sinuses and mastoid air cells are clear. IMPRESSION: No evidence of orbital or periorbital cellulitis on either side. No orbit mass or abnormal enhancement on either side No orbit region fracture. JOB #: [id number] Final Signed by: Don Chavez MD Signed (Electronic Signature): 05/15/2023 11:57 am * Exam Date Time Procedure Performing Provider Status 05/15/23 11:[address] Head w/o Contrast Alanna Marin ; Auth (Verified) Notes: (CT Head w/o Contrast) Reason For Exam: wolfe, left eye pain CT Head w/o Contrast EXAM DESCRIPTION: CT Head w/o Contrast 05/15/2023 INDICATION: WOLFE, LEFT EYE PAIN TECHNIQUE: All CT scans at this facility use at least one of these dose optimization techniques: Automated exposure control; mA and/or kV adjustment per patient size (includes targeted exams where dose is matched to clinical indication); or iterative reconstruction. Axial CT images of the head without contrast. COMPARISON: 05/04/2014 FINDINGS: No acute intracranial hemorrhage, mass effect or midline shift. No hydrocephalus. Field-white differentiation is maintained. Basal cisterns remain patent. The calvarium appears intact. Polypoid mucosal thickening or retention cyst formation in the right maxillary sinus with mild right ethmoid and sphenoid sinus mucosal thickening. Remaining visualized paranasal sinuses are grossly clear. IMPRESSION: No acute intracranial hemorrhage, mass effect or midline shift. JOB #: [id number] Final Signed by: Don Chavez MD Signed (Electronic Signature): 05/15/2023 11:52 am Vital Signs Most recent to oldest [Reference Range]: 1 2 Temperature Temporal Artery [36-38 Deg C ] 36.2 Deg C (05/15/23 8:37 AM) Peripheral Pulse Rate [60-100 bpm] 59 bp m *LOW* (05/15/23 1:53 PM) 83 bpm (05/15/23 8:37 AM) Respiratory Rate [12-24 br/min] 16 br/mi n (05/15/23 1:53 PM) 18 br/min (05/15/23 8:37 AM) Blood Pressure [90-140/60-90 mmHg] 94/60 mmHg (05/15/23 1:53 PM) 124/98mmHg (05/15/23 8:37 AM) Mean Arterial Pressure Cuff 71 mmHg (05/15/23 1:53 PM) Weight Dosing 84.00 kg (05/15/23 8:58 AM) Weight Estimated 84.00 kg (05/15/23 8:37 AM) Height/Length Dosing 165.000 cm (05/15/23 8:58 AM) Height/Length Estimated 165.000 cm (05/15/23 8:37 AM) Social History Social History Type Response Tobacco Never tobacco user T obacco Use:. Sex Hospital Discharge Instructions Patient Education 05/15/2023 12:33:31 Uveitis Uveitis Uveitis is one cause of inflammation of the eye. It often affects the middle part of the eye (uvea). This area contains many of the blood vessels that supply the rest of the eye. The uvea is made up of three structures: ??? The middle layer of the eyeball (choroid). ??? The colored part of the front of the eye (iris). ??? The connection between the iris and the choroid (ciliary body). Uveitis can affect any part of the uvea, as well as other important structures in the eye. There are many types of uveitis: ??? Iritis, or anterior uveitis, affects the iris. This is the most common type. It can start suddenly and can last for many weeks. ??? Intermediate uveitis affects the structures in the middle of the eye. This includes the fluid that fills the eye (vitreous). This type can last for years and can come and go. ??? Posterior uveitis affects the structures in the back of the eye. This includes the light-sensitive layer of cells that is needed for vision (retina). This is the least common type. ??? Panuveitis affects all layers of the eye. Uveitis can affect one eye or both eyes. It can cause short-term or long-term symptoms. Symptoms may go away and come back. Over time, the condition can damage or destroy eye structures and may lead to temporary or permanent vision loss. What are the causes? This condition may be caused by: ??? Autoimmune diseases. These are diseases in which the body's defense system (immune system) mistakenly attacks the body's own tissues. ??? Infections that start in the eye or spread to the eye. ??? Inflammatory diseases that can affect the eye. ??? Eye injuries. ??? Eye surgery. You may have medical tests, including blood tests, to help determine the cause of your uveitis. In some cases, the cause may not be known. What increases the risk? The following factors may make you more likely to develop this condition: ??? Being 20???60 years old. ??? Using tobacco products, such as cigarettes. ??? Taking certain medicines. ??? Having certain medical conditions, including autoimmune conditions, sarcoidosis, tuberculosis, and syphilis. ??? Having certain genes passed to you from a parent (inherited). What are the signs or symptoms? Symptoms of this condition depend on the type of uveitis. Common symptoms include: ??? Eye redness. ??? Eye pain. ??? Blurred vision. ??? Decreased vision. ??? Having a blind spot in your vision. ??? Floating dark spots in your vision (floaters). ??? Seeing flashing lights (photopsia). ??? Sensitivity to light (photophobia). ??? A white section on the lower part of the iris (hypopyon). How is this diagnosed? This condition may be diagnosed based on: ??? A vision test using eye charts. ??? A complete eye exam. This type of eye exam usually involves eye drops to dilate your pupils to get a view into the back of the eye. If the back of the eye cannot be seen, an ultrasound exam may be done. ??? A test to measure eye pressure. How is this treated? Treatment for this condition will depend on the type of uveitis that you have. It should be startedright away to help prevent vision loss. Treatment may include: ??? Medicines to treat inflammation (steroids). You may get steroids as eye drops, injections into the eye, or by mouth (orally). ??? Medicines to treat infection. These may be given as eye drops, injections into the eye, or orally. ??? Eye drops to dilate the pupil and reduce pressure inside the eye. ??? In some cases, medicines may be given through an IV or through a device that is implanted inside the eye. ??? Other medicines may be needed depending on the cause of your uveitis. ??? In rare cases, surgery may be needed (vitrectomy). Follow these instructions at home: ??? Take [id number] and prescription medicines only as told by your health care provider. ??? Follow instructions for safely putting eye drops in your eyes. ??? Drink enough fluid to keep your urine pale yellow. ??? Follow instructions from your health care provider about any restrictions on your activities. Ask what activities are safe for you. ??? Do not use any products that contain nicotine or tobacco. These products include cigarettes, chewing tobacco, and vaping devices, such as e-cigarettes. If you need help quitting, ask your health care provider. ??? Keep all follow-up visits. This is important. Contact a health care provider if: ??? Your symptoms do not improve as expected. Get help right away if: ??? You have vision loss in either eye. ??? You have more redness in one or both eyes. ??? Your eyes become more sensitive to light. ??? You have more pain or aching in either eye. Summary ??? Uveitis is inflammation of the eye. It often affects the middle part of the eye (uvea). This area contains many of the blood vessels that supply the rest of the eye. ??? Uveitis can affect one eye or both eyes. It can cause short-term or long- term symptoms. Symptoms may go away and come back. ??? Treatment for this condition will depend on the type of uveitis that you have. Treatment shouldbe started right away to help prevent vision loss. ??? Over time, the condition can damage or destroy eye structures and may lead to temporary or permanent vision loss. This information is not intended to replace advice given to you by your health care provider. Make sure you discuss any questions you have with your health care provider. Document Revised: 12/12/2021 Document Reviewed: 12/12/2021 [employer] Patient Education ?? 2022 [employer]. Follow Up Care 05/15/2023 08:37:50 With:Dr. Novak Address: [phone] When:1 to 2 days Discharge instructions * Event Display: Discharge Instructions Physician Emergency department Note * Andres Peterson MD: PERFORM Event Display: ED Note Physician Authored Date: [id number] FEDERICO NIETO :1985 Age:38 years Sex:Female Visit Date:05/15/2023 Primary Care Physician: John Rizo DO Basic Information Time Seen: Andres Peterson MD / 05/15/2023 09:34 Chief Complaint Pt presents to ED c/o left eye pressure with occasional blurry vision after blinking beginning upon waking up on . Pt denies trauma, denies loss of vision OU 20/20 OD 20/20 OD 20/25 History Of Present Illness: 38-year-old female presents the ER complaining of left eye pain. ??The patient states has had symptoms for about 5 days.?? When the symptoms came on she felt dizzy, left eye pressure, and blurred vision.?? Symptoms symptoms subside for a bit and then became worse today and now comes in for evaluation. ??She has felt some tingling in both arms??but no weakness.?? She describes a??fullness and pressure in the left eye and feels like there is a pressure behind it.?? She has intermittent blurred vision but no double vision.?? Light does seem to bother her eye. ??No weakness in her arms or legs. ??No fevers or chills. ??No falls or injuries. ??She has a history of migraine headaches but this feels different in that??her migraines because??posterior headache. ??She has not taken any medicationsfor symptoms today.?? Denies using contacts or glasses.?? No drainage from the eye. ??No foreign body history. Review of Systems: CONSTITUTIONAL:??No fevers or chills. ENT:??No sore throat. ?? No neck pain. CARDIOVASCULAR:??No chest pain, palpitations or passing out episodes. RESPIRATORY:??No cough, shortness of breath or hemoptysis. GI:??No abdominal pain. ??No nausea, vomiting or diarrhea. :??No change in urination. SKIN:??No rash. NEUROLOGIC:??No focal weakness. LYMPH:??No swelling. ?? Review of systems otherwise as stated in HPI Physical Exam Vitals & Measurements T:??36.2?C ??(Temporal Artery)?? HR:??83??(Peripheral)?? RR:??18?? BP:??124/98?? SpO2:??99%?? HT:??165.000??cm?? WT:??84.00??kg??(Estimated)?? Pain Score:??7?? O2 Therapy:??Room air?? GENERAL:??Awake and alert. ??Moderate discomfort.. HEENT:??Normocephalic, atraumatic. ??Mucous membranes are moist. ??Right eye appears normal. ??Lefteye shows some mild erythema to the upper lid and periorbital region with some mild to moderate tenderness there. ??Mild left temporal tenderness without erythema or warmth. ??No fullness or mass. ??C onjunctive is slightly injected. ??Pupils reactive. ??Extraocular muscles intact. ??No foreign bodyvisualized. ??There is no fluorescein uptake with Galeas lamp inspection. ??No hyphema or hypopyon. ??Visualized portions of the retina appear unremarkable although this is a limited exam due to the patient's tolerance of light application. ??Left TM clear. NECK:??Supple. ??Nontender. HEART:??Regular rate and rhythm. ??S1 and S2. LUNGS:??Clear to auscultation bilaterally. ??No respiratory distress. ABDOMEN:??Soft, nontender, nondistended. BACK:??Normal to inspection and nontender. EXTREMITIES:??Nontender and without edema. NEUROLOGIC:??Awake, alert, and oriented x3. ??Cranial nerves symmetric. ??Motor??5 out of 5 in all extremities. ??Sensation intact light touch throughout. SKIN:??Warm and dry. VASCULAR:??Radial 2+ bilaterally. Medical Decision Making: Left eye pain. ??The patient's findings are most consistent with iritis. ??She has normal visual acuity here which is reassuring.?? She has a benign exam otherwise but in moderate pain.?? Intraocularpressures are??reassuring??in the 17-21 range on testing which is fairly symmetric and I have low suspicion for??acute??glaucoma.?? Due to the paresthesias and degree of symptoms, CTs were obtained of the head and orbits which are negative for??intracranial pathology,??orbital or periorbital cellulitis.?? White blood cell count is normal arguing against serious infection and??ESR/CRP are normal making temporal arteritis very unlikely. ??No fluorescein uptake??with Galeas lamp and there is no evidence for corneal abrasion. ??The patient improved here after Toradol and Compazine and is resting comfortably. ??She was given Cyclogyl in the left eye and feels improved.?? Unfortunately the slit-lamp is broken and there is no replacement part or alternative??and??we cannot complete this exam at this time. ?? I spoke with??Dr. Novak from??optometry who agreed that iritis is the most likely??diagnosis. ??He will follow-up with the patient in the office today or tomorrow and the patient will call for an appointment.?? He agrees with sending her home with Cyclogyl which she will use 3 times daily in themeantime as well as ibuprofen and Tylenol??and return to the ER if worse. Procedure Jose Angel-Pen??evaluation was performed. ??Topical tetracaine was applied??prior to the exam.?? Serial pressures in the left eye were recorded at 17, 18, and 21 mmHg.?? Measurements of the right eye??were14, 17, and 15??mmHg. ?? Repeat eye exam after Cyclogyl administration shows normal fundus.? No Qualifying Data Assessment/Plan 1.??Iritis??H20.9 Patient Education Uveitis Follow Up With When Contact Information Dr. Novak Within 1 to 2 days ?? [phone] Additional Instructions: Medication Reconciliation Unchanged cyanocobalamin (Vitamin B12) ?? dextroamphetamine-amphetamine (Adderall XR 20 mg oral capsule, extended release)1 Capsules Oral (given by mouth) 2 times a day for 30 Days. Refills: 0. ?? dulaglutide (dulaglutide 4.5 mg/0.5 mL subcutaneous solution)0.5 Milliliters Subcutaneous (under the skin) every week for 90 Days. rotate injection sites. Refills: 3. ?? dulaglutide (Trulicity Pen) ?? levonorgestrel (Mirena) ?? magnesium carbonate-calcium carbonate ?? propranolol (propranolol 60 mg oral capsule, extended release)1 Capsules Oral (given by mouth) every night at bedtime. Refills: 3. ?? tamsulosin (tamsulosin 0.4 mg oral capsule)1 Capsules Oral (given by mouth) every day. Refills: 11. Problem List/Past Medical History Ongoing Acne ADHD [...] (esophagogastroduodenoscopy) gastric outlet reduction (09/02/2013)???History of surgery Medication Administration Given Sodium Chloride 0.9%, 1000 mL, IV Bolus cyclopentolate 1% ophthalmic solution, 1 drops, Eye-Both prochlorperazine, IV Piggyback Toradol, 30 mg, IV Push Allergies Macrobid??(Rash) nitrofurantoin??(Rash, Eruption) Social History Alcohol Current, 1-2 times per month Electronic Cigarette/Vaping Electronic Cigarette Use: Never. Substance Use Never Tobacco Never tobacco user Tobacco Use:. Family History Diabetes mellitus: Mother. Other: Mother. Pancreatitis: Mother. Diagnostic Results CT Head w/o Contrast 05/15/2023 11:[address] Orbits Sella w/ Contrast 05/15/2023 12:[address] Orbits Sella w/ Contrast ?? 05/15/23 11:57:51 EXAM DESCRIPTION: CT Orbits Sella w/ Contrast ?? 05/15/2023 ?? INDICATION: LEFT EYE PAIN, ? ORBITAL CELLULITIS ?? TECHNIQUE: All CT scans at this facility use at least one of these dose optimization techniques: Automated exposure control; mA and/or kV adjustment per patient size (includes targeted exams where dose is matched to clinical indication); or iterative reconstruction. ?? CT examination of the orbits with contrast with thin section axial images including sagittal and coronal MPR images performed on a separate workstation under concurrent supervision. ?? 100 cc of Isovue-300 contrast was utilized ?? COMPARISON: None ?? FINDINGS: No inflammatory stranding or abnormal enhancement in the orbit or periorbital soft tissues on either side to suggest orbital or periorbital cellulitis. No abnormal fluid collection to suggest abscess. No orbit mass or abnormal enhancement on either side. Globes appear intact bilaterally. ?? Regional osseous structures appear intact with no acute fracture, focal lytic or sclerotic lesion ?? Polypoid mucosal thickening or retention cyst formation in the anterior aspect of the right maxillary sinus with mild right ethmoid and right sphenoid sinus mucosal thickening. Remaining paranasal sinuses and mastoid air cells are clear. ?? IMPRESSION: No evidence of orbital or periorbital cellulitis on either side. No orbit mass or abnormal enhancement on either side ?? No orbit region fracture. ? JOB #: [id number] Electronically Signed By: ?? Signed By: Don Chavez MD ?? CT Head w/o Contrast ?? 05/15/23 11:52:15 EXAM DESCRIPTION: CT Head w/o Contrast ?? 05/15/2023 ?? INDICATION: WOLFE, LEFT EYE PAIN ?? TECHNIQUE: All CT scans at this facility use at least one of these dose optimization techniques: Automated exposure control; mA and/or kV adjustment per patient size (includes targeted exams where dose is matched to clinical indication); or iterative reconstruction. ?? Axial CT images of the head without contrast. ?? COMPARISON: 05/04/2014 ?? FINDINGS: No acute intracranial hemorrhage, mass effect or midline shift. No hydrocephalus. Field-white differentiation is maintained. Basal cisterns remain patent. ?? The calvarium appears intact. ?? Polypoid mucosal thickening or retention cyst formation in the right maxillary sinus with mild right ethmoid and sphenoid sinus mucosal thickening. Remaining visualized paranasal sinuses are grossly clear. ?? IMPRESSION: No acute intracranial hemorrhage, mass effect or midline shift. ? JOB #: [id number] Electronically Signed By: ?? Signed By: Don Chavez MD Lab Results CBC and Differential?? LATEST RESULTS?? HISTORICAL RESULTS?? WBC?? 05/15/23 10:24?? 8.6?? 11/24/22?? 7.4?? RBC?? 05/15/23 10:24?? 4.58?? 11/24/22?? 4.62?? Hgb?? 05/15/23 10:24?? 13.5?? 11/24/22?? 13.6?? Hct?? 05/15/23 10:24?? 40.0?? 11/24/22?? 42.0?? MCV?? 05/15/23 10:24?? 87.3?? 11/24/22?? 90.9?? MCH?? 05/15/23 10:24?? 29.5?? 11/24/22?? 29.4?? MCHC?? 05/15/23 10:24?? 33.8?? 11/24/22?? 32.4?? RDW-CV?? 05/15/23 10:24?? 12.6?? 11/24/22?? 15.3 ??High?? Platelets?? 05/15/23 10:24?? 302?? 11/24/22?? 276?? MPV?? 05/15/23 10:24?? 9.5?? 11/24/22?? 10.0?? Neutro Auto?? 05/15/23 10:24?? 62.2?? 11/24/22?? 56.1?? Lymph Auto?? 05/15/23 10:24?? 29.8?? 11/24/22?? 33.5?? Karnes Auto?? 05/15/23 10:24?? 6.6?? 11/24/22?? 8.3?? Eos, Auto?? 05/15/23 10:24?? 0.90?? 11/24/22?? 1.50?? Basophil Auto?? 05/15/23 10:24?? 0.2?? 11/24/22?? 0.5?? Imm Gran Auto?? 05/15/23 10:24?? 0.3?? 11/24/22?? 0.1?? NRBC Auto?? 05/15/23 10:24?? 0? Neutro Absolute?? 05/15/23 10:24?? 5.4?? 11/24/22?? 4.1?? Lymph Absolute?? 05/15/23 10:24?? 2.6?? 11/24/22?? 2.5?? Karnes Absolute?? 05/15/23 10:24?? 0.6?? 11/24/22?? 0.6?? Eos Absolute?? 05/15/23 10:24?? 0.1?? 11/24/22?? 0.1?? Baso Absolute?? 05/15/23 10:24?? 0.0?? 11/24/22?? 0.0?? Imm Gran Absolute?? 05/15/23 10:24?? 0.03?? 11/24/22?? 0.01?? NRBC Absolute?? 05/15/23 10:24?? 0? Slide Review?? 05/15/23 10:24?? Not Indicated? Miscellaneous Hematology?? LATEST RESULTS?? ESR, Westergren?? 05/15/23 10:24?? 9? Routine Chemistry?? LATEST RESULTS?? HISTORICAL RESULTS?? Sodium Level?? 05/15/23 10:24?? 139?? 11/24/22?? 135?? Potassium Level?? 05/15/23 10:24?? 3.6?? 11/24/22?? 3.8?? Chloride Level?? 05/15/23 10:24?? 107?? 11/24/22?? 107?? CO2?? 05/15/23 10:24?? 25?? 11/24/22?? 24?? Alk Phos?? 05/15/23 10:24?? 52?? 11/24/22?? 46?? AST?? 05/15/23 10:24?? 17?? 11/24/22?? 15?? ALT?? 05/15/23 10:24?? 14?? 11/24/22?? 15?? BUN?? 05/15/23 10:24?? 13?? 11/24/22?? 15?? Glucose Level?? 05/15/23 10:24?? 90?? 11/24/22?? 92?? Creatinine Level?? 05/15/23 10:24?? 1.05 ??High?? 11/24/22?? 0.92?? BUN/Creat Ratio?? 05/15/23 10:24?? 12.4?? 11/24/22?? 16.3?? eGFR CKD-EPI?? 05/15/23 10:24?? 70?? 11/24/22?? 83?? Calcium Level?? 05/15/23 10:24?? 9.7?? 11/24/22?? 8.4 ??Low?? Protein Total?? 05/15/23 10:24?? 7.7?? 11/24/22?? 6.8?? Albumin Level?? 05/15/23 10:24?? 4.4?? 11/24/22?? 3.8?? Globulin?? 05/15/23 10:24?? 3.3?? 11/24/22?? 3.0?? A/G Ratio?? 05/15/23 10:24?? 1.3?? 11/24/22?? 1.3?? Bilirubin Total?? 05/15/23 10:24?? 0.6?? 11/24/22?? 0.3?? Anion Gap?? 05/15/23 10:24?? 7.0?? 11/24/22?? 4.0?? Magnesium Level?? 05/15/23 10:24?? 2.0?? 11/09/22?? 1.8?? Osmolality?? 05/15/23 10:24?? 277?? 11/24/22?? 271 ??Low?? CRP?? 05/15/23 10:24?? <8.0? Electronically Signed on 05/15/23 01:40 PM Andres Peterson MD Emergency department Discharge instructions * Andres Peterson MD: PERFORM Event Display: ED Discharge Information Authored Date: [id number] FEDERICO NIETO :1985 Age:38 years Sex:Female Visit Date:05/15/2023 Primary Care Physician: John Rizo, DO Discharge Instructions We would like to thank you for allowing us to assist you with your healthcare needs. The following includes patient education materials and information regarding your injury/illness. ?? Use the Cyclogyl eyedrops, 2 drops, 3 times per day in the left eye until follow-up??in 1 to 2 days. Diagnosis from Today's Visit Iritis Discharge Vitals Temperature??(Temporal Artery) 97.2 ??F (36.2 ??C) Heart Rate??(Peripheral) 83 Respiratory Rate?? 18 Blood Pressure?? 124/98?? Height?? 64.96 in (165.000 cm) Weight??(Estimated) 185.22 lb (84.00 kg) Allergies Macrobid??(Rash) nitrofurantoin??(Rash, Eruption) What to Do Next You Need to Schedule the Following Appointments Follow Up with??Dr. Novak When:??Within 1 to 2 days Where: ?? [phone] Upcoming Scheduled Appointments Friday 8:00 AM EDT ?? You were treated today on an emergency [...] Emergency Department. Medications What How Much When Why Instructions Next Dose Unchanged cyanocobalamin (Vitamin B12) Unchanged dextroamphetamine-amphetamine (Adderall XR 20 mg oral capsule, extended release) 1 Capsules Oral (given by mouth) 2 times a day Duration: 30 Days Unchanged dulaglutide (dulaglutide 4.5 mg/ 0.5 mL subcutaneous solution) 0.5 Milliliters Subcutaneous (under the skin) Every week Duration: 90 Days rotate injection sites ?? Unchanged dulaglutide (Trulicity Pen) Unchanged levonorgestrel (Mirena) Unchanged magnesium carbonate-calcium carbonate Unchanged propranolol (propranolol 60 mg oral capsule, extended release) 1 Capsules Oral (given by mouth) Every night at bedtime Unchanged tamsulosin (tamsulosin 0.4 mg oral capsule) 1 Capsules Oral (given by mouth) Every day Urinary retention with incomplete bladder emptying [employer] Uveitis Uveitis is one cause of inflammation of the eye. It often affects the middle part of the eye (uvea). This area contains many of the blood vessels that supply the rest of the eye. The uvea is made up of three structures: ? The middle layer of the eyeball (choroid). ? The colored part of the front of the eye (iris). ? The connection between the iris and the choroid (ciliary body). Uveitis can affect any part of the uvea, as well as other important structures in the eye. There are many types of uveitis: ? Iritis, or anterior uveitis, affects the iris. This is the most common type. It can start suddenly and can last for many weeks. ? Intermediate uveitis affects the structures in the middle of the eye. This includes the fluid that fills the eye (vitreous). This type can last for years and can come and go. ? Posterior uveitis affects the structures in the back of the eye. This includes the light-sensitive layer of cells that is needed for vision (retina). This is the least common type. ? Panuveitis affects all layers of the eye. Uveitis can affect one eye or both eyes. It can cause short-term or long-term symptoms. Symptoms may go away and come back. Over time, the condition can damage or destroy eye structures and may lead to temporary or permanent vision loss. What are the causes? This condition may be caused by: ? Autoimmune diseases. These are diseases in which the body's defense system (immune system) mistakenly attacks the body's own tissues. ? Infections that start in the eye or spread to the eye. ? Inflammatory diseases that can affect the eye. ? Eye injuries. ? Eye surgery. You may have medical tests, including blood tests, to help determine the cause of your uveitis. In some cases, the cause may not be known. What increases the risk? The following factors may make you more likely to develop this condition: ? Being 20???60 years old. ? Using tobacco products, such as cigarettes. ? Taking certain medicines. ? Having certain medical conditions, including autoimmune conditions, sarcoidosis, tuberculosis, and syphilis. ? Having certain genes passed to you from a parent (inherited). What are the signs or symptoms? Symptoms of this condition depend on the type of uveitis. Common symptoms include: ? Eye redness. ? Eye pain. ? Blurred vision. ? Decreased vision. ? Having a blind spot in your vision. ? Floating dark spots in your vision (floaters). ? Seeing flashing lights (photopsia). ? Sensitivity to light (photophobia). ? A white section on the lower part of the iris (hypopyon). How is this diagnosed? This condition may be diagnosed based on: ? A vision test using eye charts. ? A complete eye exam. This type of eye exam usually involves eye drops to dilate your pupils to get a view into the back of the eye. If the back of the eye cannot be seen, an ultrasound exam may be done. ? A test to measure eye pressure. How is this treated? Treatment for this condition will depend on the type of uveitis that you have. It should be startedright away to help prevent vision loss. Treatment may include: ? Medicines to treat inflammation (steroids). You may get steroids as eye drops, injections into the eye, or by mouth (orally). ? Medicines to treat infection. These may be given as eye drops, injections into the eye, or orally. ? Eye drops to dilate the pupil and reduce pressure inside the eye. ? In some cases, medicines may be given through an IV or through a device that is implanted inside the eye. ? Other medicines may be needed depending on the cause of your uveitis. ? In rare cases, surgery may be needed (vitrectomy). Follow these instructions at home: ? Take [id number] and prescription medicines only as told by your health care provider. ? Follow instructions for safely putting eye drops in your eyes. ? Drink enough fluid to keep your urine pale yellow. ? Follow instructions from your health care provider about any restrictions on your activities. Ask what activities are safe for you. ? Do not use any products that contain nicotine or tobacco. These products include cigarettes, chewing tobacco, and vaping devices, such as e-cigarettes. If you need help quitting, ask your health careprovider. ? Keep all follow-up visits. This is important. Contact a health care provider if: ? Your symptoms do not improve as expected. Get help right away if: ? You have vision loss in either eye. ? You have more redness in one or both eyes. ? Your eyes become more sensitive to light. ? You have more pain or aching in either eye. Summary ? Uveitis is inflammation of the eye. It often affects the middle part of the eye (uvea). This area contains many of the blood vessels that supply the rest of the eye. ? Uveitis can affect one eye or both eyes. It can cause short-term or long-term symptoms. Symptoms may go away and come back. ? Treatment for this condition will depend on the type of uveitis that you have. Treatment should be started right away to help prevent vision loss. ? Over time, the condition can damage or destroy eye structures and may lead to temporary or permanent vision loss. This information is not intended to replace advice given to you by your health care provider. Make sure you discuss any questions you have with your health care provider. Document Revised: 12/12/2021 Document Reviewed: 12/12/2021 [employer] Patient Education ?? 2022 [employer] Tests Performed Radiology CT Head w/o Contrast 05/15/2023 11:[address] Orbits Sella w/ Contrast 05/15/2023 12:00 EDT Medications and Immunizations Administered Given Sodium Chloride 0.9%, 1000 mL, IV Bolus cyclopentolate 1% ophthalmic solution, 1 drops, Eye-Both prochlorperazine, IV Piggyback Toradol, 30 mg, IV Push Lab Test Name Test Result Date/Time WBC 8.6 K/mcL 05/15/2023 10:24 EDT RBC 4.58 Million/mcL 05/15/2023 10:24 EDT Hgb 13.5 g/dL 05/15/2023 10:24 EDT Hct 40.0 % 05/15/2023 10:24 EDT MCV 87.3 fL 05/15/2023 10:24 EDT MCH 29.5 pg 05/15/2023 10:24 EDT MCHC 33.8 g/dL 05/15/2023 10:24 EDT RDW-CV 12.6 % 05/15/2023 10:24 EDT Platelets 302 K/mcL 05/15/2023 10:24 EDT MPV 9.5 fL 05/15/2023 10:24 EDT Neutro Auto 62.2 % 05/15/2023 10:24 EDT Lymph Auto 29.8 % 05/15/2023 10:24 EDT Karnes Auto 6.6 % 05/15/2023 10:24 EDT Eos, Auto 0.90 % 05/15/2023 10:24 EDT Basophil Auto 0.2 % 05/15/2023 10:24 EDT Imm Gran Auto 0.3 % 05/15/2023 10:24 EDT NRBC Auto 0 05/15/2023 10:24 EDT Neutro Absolute 5.4 K/mcL 05/15/2023 10:24 EDT Lymph Absolute 2.6 K/mcL 05/15/2023 10:24 EDT Karnes Absolute 0.6 K/mcL 05/15/2023 10:24 EDT Eos Absolute 0.1 K/mcL 05/15/2023 10:24 EDT Baso Absolute 0.0 K/mcL 05/15/2023 10:24 EDT Imm Gran Absolute 0.03 05/15/2023 10:24 EDT NRBC Absolute 0 05/15/2023 10:24 EDT Slide Review Not Indicated 05/15/2023 10:24 EDT ESR, Westergren 9 mm/hr 05/15/2023 10:24 EDT Sodium Level 139 mmol/L 05/15/2023 10:24 EDT Potassium Level 3.6 mmol/L 05/15/2023 10:24 EDT Chloride Level 107 mmol/L 05/15/2023 10:24 EDT CO2 25 mmol/L 05/15/2023 10:24 EDT Alk Phos 52 IntlUnit/L 05/15/2023 10:24 EDT AST 17 IntlUnit/L 05/15/2023 10:24 EDT ALT 14 IntlUnit/L 05/15/2023 10:24 EDT BUN 13 mg/dL 05/15/2023 10:24 EDT Glucose Level 90 mg/dL 05/15/2023 10:24 EDT Creatinine Level 1.05 mg/dL 05/15/2023 10:24 EDT BUN/Creat Ratio 12.4 05/15/2023 10:24 EDT eGFR CKD-EPI 70 mL/min/1.73 m2 05/15/2023 10:24 EDT Calcium Level 9.7 mg/dL 05/15/2023 10:24 EDT Protein Total 7.7 g/dL 05/15/2023 10:24 EDT Albumin Level 4.4 g/dL 05/15/2023 10:24 EDT Globulin 3.3 05/15/2023 10:24 EDT A/G Ratio 1.3 05/15/2023 10:24 EDT Bilirubin Total 0.6 mg/dL 05/15/2023 10:24 EDT Anion Gap 7.0 05/15/2023 10:24 EDT Magnesium Level 2.0 mg/dL 05/15/2023 10:24 EDT Osmolality 277 mOsm/kg 05/15/2023 10:24 EDT CRP <8.0 mg/L 05/15/2023 10:24 EDT Patient/[employer] Signature Patient Name:FEDERICO NIETO I have received this information and my questions have been answered. Patient/[employer] Name: Patient/[employer] Signature: Relationship to Patient: Witness Name/Signature: Date: Electronically Signed on: 05/15/2023 13:41 EDTSigned by: Patient Care team information Care Team Personnel Name: John Rizo DO Position: Physician Member Role: Primary Care Physician Address: Address: [address] [place] [address] Name: Heidi Tello Position: Nurse Member Role: ED Nurse Name: Andres Peterson MD Position: Physician Member Role: ED Physician Address: Address: [address] [place] [address] Care Team Related Persons Name: BUZZ ENGEL Address: Home [address] [place] [address] [phone] [facility] Address: Mailing [address] [place] [address] [phone] Name: NEY NIETO
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
--- OUTSIDE RECORDS SUMMARY | 2023-08-15 04:07 | XMS_ITS | Continuity of Care Document ---
Author Name Unknown Organization [facility] Ambulatory Clinics Address [address] [place] [address] Care Team Providers Care Resource Recovery Specialist Name Role Phone Yuki Yu APRN Primary Care Physician Encounter [facility] NBR [id number] Date(s): 07/15/23 - 07/15/23 [facility] Ambulatory Clinics [address] [place] [address]- Discharge Disposition: Home Allergies, Adverse Reactions, Alerts [...] 5 05/19/15 Recorded 1Result Comment: Unit: Unknown Automatic Dispenser Mechanic: [employer] 2Result Comment: Unit: Unknown Automatic Dispenser Mechanic: Sanofi Pasteur 3Result Comment: Unit: Unknown Automatic Dispenser Mechanic: GlaxoSmithKline 4Result Comment: Automatic Dispenser Mechanic: GlaxoSmithKline 5Result Comment: Automatic Dispenser Mechanic: Sanofi Pasteur Medications Adderall XR 20 mg oral capsule, extended release 20 mg 1 cap, Oral, BID, Appointment on 07/08/2023, # 60 cap, 0 Refill(s), Pharmacy: [facility], 165, cm, 05/15/23 8:58:00 EDT, Height/Length Dosing, 84, kg, 05/15/23 8:58:00 EDT, Weight Dosing Start Date: 07/09/23 Stop Date: 08/08/23 Status: Ordered amoxicillin 500 mg oral capsule 500 mg = 1 cap, Oral, TID, # 15 cap, 0 Refill(s), Pharmacy: [facility], 165, cm, 05/15/23 8:58:00 EDT, Height/Length [...] Daily, # 90 tab, 2 Refill(s), Pharmacy: [facility], 165, cm, 05/15/23 8:58:00 EDT, Height/Length [...] cholecystectomy and umbilical hernia repair Dr. Paige [facility] 12/20/22 Procedures Procedure Date Related Diagnosis Body [...] Member Role: Primary Care Physician Address: Address: [address] [place] [id number] [place] Care Team Related Persons Name: BUZZ ENGEL Address: Home [address] [place], [place] [phone] [facility] Address: Mailing [address] [place], [place] [phone] Name: NEY NIETO
--- OUTSIDE RECORDS SUMMARY | 2023-08-15 04:08 | XMS_ITS | Continuity of Care Document ---
Author Name Unknown Organization [facility] Ambulatory Clinics Address [address] [place] [address] Care Team Providers Care Preschool Lead Teacher Name Role Phone Dede Soto Primary Care Physician Encounter [facility] NBR [id number] Date(s): 04/01/23 - 04/01/23 [facility] Ambulatory Clinics [address] [place] [address]- Discharge Disposition: Home Allergies, Adverse Reactions, Alerts [...] 5 05/19/15 Recorded 1Result Comment: Unit: Unknown Editorial Specialist: [employer] 2Result Comment: Unit: Unknown Editorial Specialist: Sanofi Pasteur 3Result Comment: Unit: Unknown Editorial Specialist: GlaxoSmithKline 4Result Comment: Editorial Specialist: GlaxoSmithKline 5Result Comment: Editorial Specialist: Sanofi Pasteur Medications Adderall XR 20 mg oral capsule, extended release 20 mg 1 cap, Oral, BID, # 60 cap, 0 Refill(s), Pharmacy: [facility], 168, cm, 12/13/22 17:32:00 EST, Height/Length Dosing, 93, kg, 12/13/22 17:32:00 EST, Weight Dosing Start Date: 03/28/23 Stop Date: 04/27/23 Status: Ordered dulaglutide 1.5 mg/0.5 mL subcutaneous solution See Instructions, 1.0 ml Subcutaneous every week 30 days, use 2 injections of 0.5 ml each week, # 4mL, 3 Refill(s), Pharmacy: [facility], 168, cm, 12/13/22 17:32:00 EST, Height/Length Dosing, 93, kg, 12/13/22 17:32:00 EST, Weight Dosing Start Date: 12/19/22 Status: Ordered Mirena 0 Refill(s) Start Date: 09/25/22 Status: Ordered propranolol 60 mg oral capsule, extended release 60 mg = 1 cap, Oral, every night at bedtime, # 90 cap, 3 Refill(s), Pharmacy: [facility], 168, cm, 12/13/22 17:32:00 EST, Height/Length Dosing, 93, kg, 12/13/22 17:32:00 EST, Weight Dosing Start Date: 03/28/23 Status: Ordered tamsulosin 0.4 mg oral capsule 0.4 mg = 1 cap, Oral, Daily, # 30 cap, 11 Refill(s), Pharmacy: [facility], 168, cm, 12/13/22 17:32:00 EST, Height/Length Dosing, 93, kg, 12/13/22 17:32:00 EST, Weight Dosing Start Date: 03/28/23 Status: Ordered Trulicity Pen 3 mg/0.5 mL subcutaneous solution 3 mg = 0.5 mL, Subcutaneous, every week, rotate injection sites, # 7.5 mL, 3 Refill(s), Pharmacy: [facility], 168, cm, 12/13/22 17:32:00 EST, Height/Length [...] cholecystectomy and umbilical hernia repair [facility] Paige [facility] 12/20/22 Procedures Procedure Date Related [...] Member Role: Primary Care Physician Address: Address: [address] [place] [address] [address] Care Team Related Persons Name: BUZZ ENGEL Address: Home [address] [place], [place] [phone] [facility] Address: Mailing [address] [place], [place] [phone] Name: NEY NIETO
--- OUTSIDE RECORDS SUMMARY | 2023-08-15 04:08 | XMS_ITS | Continuity of Care Document ---
Author Name Unknown Organization [facility] Address [address] [place] [address] Care Team Providers Care Cover Operator Name Role Phone Dede Soto Primary Care Physician Encounter [facility] NBR [id number] Date(s): 04/01/23 - 04/01/23 [facility] [address] [place] [address]- Discharge Disposition: Home Allergies, Adverse Reactions, Alerts [...] 5 05/19/15 Recorded 1Result Comment: Unit: Unknown One Piece Expansion Maker Hand: [employer] 2Result Comment: Unit: Unknown One Piece Expansion Maker Hand: Sanofi Pasteur 3Result Comment: Unit: Unknown One Piece Expansion Maker Hand: [employer] 4Result Comment: One Piece Expansion Maker Hand: [employer] 5Result Comment: One Piece Expansion Maker Hand: Sanofi Pasteur Medications Adderall XR 20 mg oral capsule, extended release 20 mg 1 cap, Oral, BID, # 60 cap, 0 Refill(s), Pharmacy: [facility], 168, cm, 12/13/22 17:32:00 EST, Height/Length Dosing, 93, kg, 12/13/22 17:32:00 EST, Weight Dosing Start Date: 03/28/23 Stop Date: 04/27/23 Status: Ordered dulaglutide 1.5 mg/0.5 mL subcutaneous solution See Instructions, 1.0 ml Subcutaneous every week 30 days, use 2 injections of 0.5 ml each week, # 4mL, 3 Refill(s), Pharmacy: [facility], 168, cm, 12/13/22 17:32:00 EST, Height/Length Dosing, 93, kg, 12/13/22 17:32:00 EST, Weight Dosing Start Date: 12/19/22 Status: Ordered Mirena 0 Refill(s) Start Date: 09/25/22 Status: Ordered propranolol 60 mg oral capsule, extended release 60 mg = 1 cap, Oral, every night at bedtime, # 90 cap, 3 Refill(s), Pharmacy: [facility], 168, cm, 12/13/22 17:32:00 EST, Height/Length Dosing, 93, kg, 12/13/22 17:32:00 EST, Weight Dosing Start Date: 03/28/23 Status: Ordered tamsulosin 0.4 mg oral capsule 0.4 mg = 1 cap, Oral, Daily, # 30 cap, 11 Refill(s), Pharmacy: [facility], 168, cm, 12/13/22 17:32:00 EST, Height/Length Dosing, 93, kg, 12/13/22 17:32:00 EST, Weight Dosing Start Date: 03/28/23 Status: Ordered Trulicity Pen 3 mg/0.5 mL subcutaneous solution 3 mg = 0.5 mL, Subcutaneous, every week, rotate injection sites, # 7.5 mL, 3 Refill(s), Pharmacy: [facility], 168, cm, 12/13/22 17:32:00 EST, Height/Length [...] cholecystectomy and umbilical hernia repair Dr. Paige [facility] 12/20/22 Procedures Procedure Date Related [...] Member Role: Primary Care Physician Address: Address: [address] [place] [address] [address] Care Team Related Persons Name: BUZZ ENGEL Address: Home [address] [place], [place] [phone] [facility] Address: Mailing [address] [place], [place] [phone] Name: NEY NIETO
[2023-08-15 04:22] LABS: Bilirubin Negative (Negative); Blood Negative (Negative); Clarity Sl Cloudy (Clear); Glucose Negative (Negative); Ketones Negative (Negative); Leukocyte Esterase Trace (Negative); Nitrite Positive (Negative); RBC Negative HPF (0-2); Specific Gravity 1.025 (1.005-1.025); Urobilinogen 0.2 mg/dL (Up to 0.2); WBC >50 HPF (0-5); pH 5.5 (5-8)
[2023-08-15 04:24] LABS: Bacteria Many HPF (Negative); C & S Indicated? C&S Done As Ordered; Casts Negative LPF (Negative); Crystals Negative HPF (Negative); Epithelial Cells Few HPF (Negative); Mucus Negative (Negative)
== END 2023-08-15 04:05 | disposition home or self-care (01) ==
LOC: LBN 04:04
PROVIDERS: PCP Family Medicine; Visit Provider Registered Nurse Critical Care Medicine
DX: R10.2 Pelvic and perineal pain (principal); N39.0 Urinary tract infection, site not specified
CPT/HCPCS: 87077; 87491; 87591; 81003; 81015; 87086; 87186

== ENCOUNTER 2023-10-06 16:42 | Emergency (ER) | payer OTHER, SELFPAY ==
[2023-10-06 16:48] VITALS: BP 141/98; PULSE 104; RESP 22; TEMP 37.7; O2SAT 98
--- OUTSIDE RECORDS SUMMARY | 2023-10-06 16:55 | XMS_ITS | Continuity of Care Document ---
Author Name Unknown Organization [facility] Address [address] [place] [address] Care Team Providers Care Commercial Painter Name Role Phone Yuki Yu APRN Primary Care Physician Encounter [facility] NBR [id number] Date(s): 08/15/23 - 08/15/23 [facility] Ambulatory [facility] [address] [place] [address]- [place] Discharge Disposition: Home Allergies, Adverse Reactions, [...] 5 05/19/15 Recorded 1Result Comment: Unit: Unknown Loan Secretary: [employer] 2Result Comment: Unit: Unknown Loan Secretary: Sanofi Pasteur 3Result Comment: Unit: Unknown Loan Secretary: [employer] 4Result Comment: Loan Secretary: [employer] 5Result Comment: Loan Secretary: Sanofi Pasteur Medications Adderall XR 20 mg oral capsule, extended release 20 mg 1 cap, Oral, BID, Appointment on 07/08/2023, # 60 cap, 0 Refill(s), Pharmacy: [facility], 165, cm, 05/15/23 8:58:00 EDT, Height/Length Dosing, 84, kg, 05/15/23 8:58:00 EDT, Weight Dosing Start Date: 07/16/23 Stop Date: 08/15/23 Status: Ordered amoxicillin 500 mg oral capsule 500 mg = 1 cap, Oral, TID, # 15 cap, 0 Refill(s), Pharmacy: [facility], 165, cm, 05/15/23 8:58:00 EDT, Height/Length Dosing, [...] Daily, # 90 tab, 2 Refill(s), Pharmacy: [facility], 165, cm, 05/15/23 8:58:00 EDT, Height/Length Dosing, [...] cholecystectomy and umbilical hernia repair Dr. Paige [facility] 12/20/22 Procedures Procedure Date Related [...] Member Role: Primary Care Physician Address: Address: [address] [place] [id number] [place] Care Team Related Persons Name: BUZZ ENGEL Address: Home [address] [place], [place] [phone] [facility] Address: Mailing [address] [place], [place] [phone] Name: NEY NIETO
--- NOTE | 2023-10-06 17:00 | DI.RAD_ITS ---
Exam(s) XR CHEST 2V PA LATERAL EXAM: XR CHEST 2V PA LATERAL CLINICAL HISTORY: shortness of breath, covid TECHNIQUE: 2D digital imaging was performed of the chest. Two images were obtained. PA and lateral views were obtained. COMPARISON: CR CHEST 2 VIEWS PA,LAT from 06/15/2013 FINDINGS: MEDIASTINUM: Normal. HEART: Normal. PULMONARY VASCULATURE: Normal. LUNGS: Clear. PLEURAL SPACE: No pleural effusion or pneumothorax. BONE:Within normal limits for the patient's age. OTHER FINDINGS:Normal. IMPRESSION: No acute pulmonary findings. DATA REPOSITORY: RADIATION DOSE DELIVERED:
--- NOTE | 2023-10-06 17:00 | DI.CT_ITS ---
Exam(s) CT ABDOMEN PELVIS W EXAM: CT ABDOMEN PELVIS W CLINICAL HISTORY: epigastric pain TECHNIQUE: Imaging Protocol: Axial computed tomography images with coronal and sagittal reformatted images were created and reviewed CONTRAST MATERIAL: Intravenous: Omnipaque 350 Contrast volume:100 mL Oral: No COMPARISON: CT ABD PELVIS WO CONTRAST from 09/10/2014 FINDINGS: ABDOMEN: Lung Bases: There is a calcified granuloma in the lingula. There is a 3 mm nodule in the lateral asp ect of the right middle lobe. Liver: Normal density. No measurable mass. Portal, Superior Mesenteric, and Splenic Veins: Unremarkable. Gallbladder and Biliary Tract: Status post cholecystectomy. No significant biliary ductal dilatation . Pancreas: Normal density, no abnormal calcifications or inflammatory process. Spleen: Normal. Adrenals: No masses seen. Kidneys: The left kidney is absent. The right kidney is unremarkable. No radiodense stones or obstr uctive uropathy. No masses seen. Abdominal Aorta: Abdominal portion non-dilated. Bowel: No obstruction or bowel wall thickening. Appendix is unremarkable. Peritoneal Cavity: No ascites, collection or mesenteric inflammatory response. No free air. Lymph Nodes: Within normal limits. Bones: Within normal limits for the patient's age. Soft Tissues: Unremarkable. PELVIS: Bladder: Symmetric distention, no gross wall thickening. Reproductive Organs: There is an IUD in place. There is a 3.0 x 2.2 cm right ovarian cyst. Lymph Nodes: Within normal limits. Bones: Within normal limits for the patient's age. IMPRESSION: 1. No acute abdominal or pelvic process. 2. 3 mm right middle lobe pulmonary nodule. For low risk patients, no follow-up is indicated. For h igh risk patients (history of smoking or other risk factors), CT scan of the chest in 12 months is op tional. (Ximena et al, 2017). 3. Findings were discussed with the emergency department at 6:42 p.m. on 10/06/2023. Unexpected findings RADIATION DOSE DELIVERED: Total DLP DATA REPOSITORY: All CT scans at this facility are submitted to the National Radiology Data Registry (NRDR) Dose Index Registry (DIR) with the [employer] (ACR). RADIATION OPTIMIZATION: All CT scans at this facility use at least one of these dose optimization te chniques: automated exposure control; mA and/or kV adjustment per patient size (includes targeted exa ms where dose is matched to clinical indication); or iterative reconstruction.
[2023-10-06 17:26] LABS: Abs Immature Grans 0.02 10^3/uL (0.0-0.06); Absolute Basophil Count 0.01 10^3/uL (0.0-0.2); Absolute Eosinophil Count 0.03 10^3/uL (0.0-0.7); Absolute Lymphocyte Count 1.28 10^3/uL (1.2-3.4); Absolute Monocyte Count 0.81 10^3/uL (0.1-0.8); Basophils % 0.1; Eosinophils % 0.4; HCT 37.7 % (36.0-46.0); HGB 12.9 g/dL (11.2-15.7); Immature Grans % 0.3; Lymphocytes % 18.4; MCH 29.5 pg (27.0-33.0); MCHC 34.2 % (32.0-36.0); MCV 86 fL (80-95); MPV 9.7 fL (8.0-11.0); Monocytes % 11.7; Neutrophils % 69.1; Platelet Count 199 10^3/uL (130-400); RBC 4.38 10^6/uL (3.93-5.22); RDW 12.5 % (11.7-14.6); RDW-SD 39.7 fL; WBC 6.95 10^3/uL (4.4-10.8)
[2023-10-06] MEDS: Famotidine 20 MG/2 ML VIAL IVP (17:29)
[2023-10-06] MEDS: Lactated Ringers 1,000 ML 1000 ML IV (17:29)
[2023-10-06 17:42] LABS: ALT 22 U/L (14-59); AST 17 U/L (15-37); Albumin 3.5 g/dL (3.4-5.0); Alkaline Phosphatase 56 U/L (46-116); Anion Gap 8.8 mmol/L (3-11); BUN 9 mg/dL (7-18); Bilirubin, Total 0.7 mg/dL (0.2-1.0); CO2 29.2 mmol/L (21.0-32.0); CREATININE 0.9 mg/dL (0.55-1.02); Chloride 100 mmol/L (98-107); Estimated GFR 84.44 (mL/min/1.73m2); Glucose 91 mg/dL (74-106); Lipase 30 U/L (16-77); Magnesium 1.5 mg/dL (1.8-2.4); Potassium 3.5 mmol/L (3.5-5.1); Sodium 138 mmol/L (136-145); Total Protein 7.5 g/dL (6.4-8.2)
[2023-10-06] MEDS: Omnipaque 350 MG/ML 100 ML BTL IJ (18:06)
[2023-10-06] MEDS: Normal Saline - Diluent 50 ML VIAL IJ (18:07)
--- NOTE | 2023-10-06 19:11 | ED.GENADUL_ITS ---
Discharge Plan Disposition Patient Disposition: Home Condition: Stable Discharge Details Clinical Impression: COVID-19, Abdominal pain, Nausea Primary Care Provider: Hayley Mckee ED Provider: Ayesha Horton Home Meds and New Rx's Prescriptions: New magnesium 250 mg tablet 250 mg PO DAILY Qty: 10 0RF ondansetron 4 mg tablet,disintegrating 4 mg PO DAILY PRN4 Days Qty: 10 0RF Continued Trulicity 1.5 mg/0.5 mL pen injector 4.5 mg SUBCUT QWEEK Discharge Instructions Instructions: Acute Nausea and Vomiting (ED), Viral Syndrome (ED), Abdominal Pain (ED) Additional Instructions: Take Zofran as needed for nausea and vomiting Use the albuterol, 2 puffs every 4-6 hours as needed for cough, wheeze, shortness of breath Maalox or Mylanta as needed for epigastric pain take pseudophed as prescribed for congestion and tylenol Take magnesium, your magnesium is low here, 1.5 Broth, Jell-O, saltines, sam bhumika as tolerated Please return earlier should he have new or worsening complaints Referrals: Hayley Mckee [Primary Care Provider] - Medical Decision Making 38-year-old female presenting with report of abdominal pain, cough, shortness of breath Patient is febrile, nontoxic in appearance, congested, chest x-ray without evidence of pneumonia per radiology interpretation my review CT abdomen and pelvis shows evidence of 3 mm pulmonary nodule in the right lobe and an ovarian cyst No evidence of acute abnormality that would be contributing to patient's pain on CT scan Administer Pepcid, fluids, antiemetics Magnesium 1.5, magnesium for home supplementation and supplemented in the emergency department Albuterol and spacer given prior to discharge Zofran for nausea and vomiting Paxlovid given history of solitary kidney Creatinine within normal limits, LFTs within normal limits Discharged home in stable condition with stable vitals Return precautions reviewed and patient expressed understanding HPI General Date/Time Provider Initiated Documentation: 10/06/23 16:46 . HPI Narrative: This 38-year-old female with history of solitary kidney presents for the report of epigastric pain which started on while patient was on a cruise. She has had nausea without vomiting and some intermittent diarrhea. Denies any chest pain but has had shortness of breath. Started having upper respiratory congestion on Friday and tested herself for COVID-19 on Friday and tested positive for COVID-19. States she feels worse today and has had persistent intermittent pain that is exacerbated by eating which is why she presents. She also feels short of breath. She was sent here for labs so that she may start Paxlovid. Denies chance of . Related Data Home Medications Medication Instructions Recorded Confirmed dulaglutide 1.5 mg/0.5 mL 4.5 mg subcut QWEEK 12/16/22 10/06/23 subcutaneous pen injector (Trulicity) magnesium 250 mg tablet 250 mg PO DAILY #10 tabs 10/06/23 ondansetron 4 mg disintegrating 4 mg PO DAILY PRN 4 days #10 tabs 10/06/23 tablet Previous Rx's Medication Instructions Recorded magnesium 250 mg tablet 250 mg PO DAILY #10 tabs 10/06/23 ondansetron 4 mg disintegrating 4 mg PO DAILY PRN 4 days #10 tabs 10/06/23 tablet Allergies Allergy/AdvReac Type Severity Reaction Status Date / Time nitrofurantoin Allergy Unverified 10/06/23 16:52 [From Macrobid] General Stated Complaint: Abd Prob LAMAR: 3 PFSH All Active Problems (Updated 10/06/23 @ 19:14 by JAVED Lambert) Nausea (Acute) Abdominal pain (Acute) COVID-19 (Acute) Left leg pain (Acute) Subclinical hypothyroidism (Acute) Social History Smoking/Tobacco Use Status: Never Smoking risk assessment performed?: Yes Alcohol Intake: current Alcohol Intake frequency: a few times a week Drug use: Never Substance use type: does not use Housing: house Do you feel safe at home: Yes Do you feel safe in your relationship?: Yes Course Vital Signs Vital signs: Vital Signs Temperature 37.7 C H 10/06/23 16:48 Pulse 104 H 10/06/23 16:48 Respiratory Rate 10/06/23 16:48 Blood Pressure 141/98 H 10/06/23 16:48 Pulse Oximetry 98 10/06/23 16:48 Temperature 37.7 C H 10/06/23 16:48 Temperature Source Oral 10/06/23 16:48 Pulse 104 H 10/06/23 16:48 Respiratory Rate 22 10/06/23 16:48 Respiratory Effort Short of Breath 10/06/23 16:53 Blood Pressure 141/98 H 10/06/23 16:48 Pulse Oximetry 98 10/06/23 16:48 Oxygen Delivery Method Room Air 10/06/23 16:48 Oxygen Flow Rate 0 10/06/23 16:48 Pain Level 5 10/06/23 17:30 Lab/Test Results Lab/Test Results: Laboratory Tests Range/Units 10/06/23 17:15 WBC (4.4-10.8) 10^3/uL 6.95 RBC (3.93-5.22) 10^6/uL 4.38 Hgb (11.2-15.7) g/dL 12.9 Hct (36.0-46.0) % 37.7 MCV (80-95) fL 86 MCH (27.0-33.0) pg 29.5 MCHC (32.0-36.0) % 34.2 RDW (11.7-14.6) % 12.5 Plt Count (130-400) 10^3/uL 199 MPV (8.0-11.0) fL 9.7 Immature Gran % 0.3 Neutrophils % 69.1 Lymphocytes % 18.4 Monocytes % 11.7 Eosinophils % 0.4 Basophils % 0.1 Nucleated RBC % (0.0-0.3) % 0.0 Absolute Neutrophils (1.2-6.7) 10^3/uL 4.80 Absolute Lymphocytes (1.2-3.4) 10^3/uL 1.28 Absolute Monocytes (0.1-0.8) 10^3/uL 0.81 H Absolute Eosinophils (0.0-0.7) 10^3/uL 0.03 Absolute Basophils (0.0-0.2) 10^3/uL 0.01 Sodium (136-145) mmol/L 138 Potassium (3.5-5.1) mmol/L 3.5 Chloride (98-107) mmol/L 100 Carbon Dioxide (21.0-32.0) mmol/L 29.2 Anion Gap (3-11) mmol/L 8.8 BUN (7-18) mg/dL 9 Creatinine (0.55-1.02) mg/dL 0.9 Est GFR (CKD-EPI 2020) (mL/min/1.73m2) 84.44 Glucose (74-106) mg/dL 91 Calcium (8.5-10.1) mg/dL 9.0 Magnesium (1.8-2.4) mg/dL 1.5 L Total Bilirubin (0.2-1.0) mg/dL 0.7 AST (15-37) U/L 17 ALT (14-59) U/L 22 Alkaline Phosphatase (46-116) U/L 56 Total Protein (6.4-8.2) g/dL 7.5 Albumin (3.4-5.0) g/dL 3.5 Lipase (16-77) U/L 30 PAWSS Have you Been Recently Intoxicated or Drunk Within the Last 30 days?: No Have you Ever Experienced Previous Episodes of Alcohol Withdrawal?: No Have you ever Experienced Withdrawal Seizures?: No Have you ever Experienced Delirium Tremens(DT)s?: No Have you ever undergone Alcohol Rehabilitation Treatment (i.e, inpt ot outpatient treatment programs)?: No Have you ever Experienced Blackouts?: No Have you ever Combined Alcohol with other Downers within the last 90 days?: No Have you ever Combined Alcohol with any other Substance of Abuse during the last 90 days?: No Positive Blood Alcohol level on Presentation? [PCS.BAL]: No Evidence of Increased Autonomic Activity (i.e. HR>120, tremor, sweating, agitation, nausea)?: No Result: 0
[2023-10-06] MEDS: Albuterol HFA 8 GM 60 PUFF INH IH (19:44)
[2023-10-06] MEDS: Magnesium Oxide 400 MG TAB 800 MG PO (19:46)
[2023-10-06 19:48] VITALS: BP 115/75; PULSE 94; RESP 18; O2SAT 100
--- NOTE | 2023-10-06 20:13 | NUR.NOTE ---
Steve sent to pharmacy, prescription for take home showed up after discharged. Was not given. Duplicate order for Paxlovid for 12 hours later. Prescription sent with Pt. Nursing Note:
== END 2023-10-06 19:50 | disposition home or self-care (01) ==
PROVIDERS: Emergency Provider Physician Assistant; PCP Family Medicine
DX: R10.9 Unspecified abdominal pain (principal); R19.7 Diarrhea, unspecified; R06.02 Shortness of breath; U07.1 COVID-19; R11.0 Nausea; R07.9 Chest pain, unspecified; R91.1 Solitary pulmonary nodule; Q60.0 Renal agenesis, unilateral
CPT/HCPCS: 80053; 81025; 83690; 94640; 96361; 96374; 99285; 71046; 74177; 81003; 83735; 85025; 99284; J3490

== ENCOUNTER 2024-01-08 23:32 | Emergency (ER) | payer OTHER, SELFPAY ==
[2024-01-08 23:36] VITALS: BP 97/82; PULSE 110; RESP 18; TEMP 36.6; O2SAT 95
[2024-01-08 23:41] VITALS: PULSE 104; RESP 19; O2SAT 100
[2024-01-08 23:50] VITALS: PULSE 96; RESP 20
[2024-01-08 23:58] LABS: Abs Immature Grans 0.06 10^3/uL (0.0-0.06); Absolute Basophil Count 0.02 10^3/uL (0.0-0.2); Absolute Eosinophil Count 0.02 10^3/uL (0.0-0.7); Absolute Monocyte Count 0.41 10^3/uL (0.1-0.8); Absolute Neutrophil Count 10.49 10^3/uL (1.2-6.7); Basophils % 0.2; Eosinophils % 0.2; HCT 40.5 % (36.0-46.0); HGB 14.1 g/dL (11.2-15.7); Immature Grans % 0.5; Lymphocytes % 3.5; MCH 29.9 pg (27.0-33.0); MCHC 34.8 % (32.0-36.0); MCV 86 fL (80-95); MPV 9.6 fL (8.0-11.0); Monocytes % 3.6; Platelet Count 237 10^3/uL (130-400); RBC 4.71 10^6/uL (3.93-5.22); RDW 12.4 % (11.7-14.6); RDW-SD 39.4 fL
[2024-01-09] VITALS (38 sets, daily range): BP systolic 80–100; BP diastolic 42–61; PULSE 81–101; RESP 9–38; O2SAT 88–100
[2024-01-09] MEDS: ACETAMINOPHEN 1,000 MG/100 ML BTL 400 MG IVPB (00:03)
[2024-01-09] MEDS: Metoclopramide 10 MG/2 ML VIAL IVP (00:04)
[2024-01-09] MEDS: Normal Saline 1,000 ML 2000 ML IV (00:04)
[2024-01-09 00:09] LABS: Lipase 26 U/L (16-77)
[2024-01-09 00:16] LABS: ALT 23 U/L (14-59); AST 16 U/L (15-37); Albumin 3.7 g/dL (3.4-5.0); Alkaline Phosphatase 59 U/L (46-116); Anion Gap 13.4 mmol/L (3-11); BUN 19 mg/dL (7-18); CO2 24.6 mmol/L (21.0-32.0); CREATININE 1.1 mg/dL (0.55-1.02); Calcium 8.5 mg/dL (8.5-10.1); Chloride 102 mmol/L (98-107); Estimated GFR 65.96 (mL/min/1.73m2); Glucose 109 mg/dL (74-106); HCG Qual (Serum) Negative; Magnesium 1.4 mg/dL (1.8-2.4); Potassium 3.1 mmol/L (3.5-5.1); Sodium 140 mmol/L (136-145); Total Protein 7.5 g/dL (6.4-8.2)
--- NOTE | 2024-01-09 00:17 | ED.GENADUL_ITS ---
Discharge Plan Disposition Patient Disposition: Home Condition: Improving Discharge Details Chief Complaint: Nausea/Vomit/Diar Clinical Impression: Acute dehydration, Gastroenteritis Primary Care Provider: Hayley Mckee ED Provider: Bahman Barry Home Meds and New Rx's Prescriptions: No Action Trulicity 1.5 mg/0.5 mL pen injector 4.5 mg SUBCUT QWEEK magnesium 250 mg tablet 250 mg PO DAILY Qty: 10 0RF Discharge Instructions Instructions: Dehydration (ED), Gastroenteritis (ED) Additional Instructions: You can take 2-3 325 mg acetaminophen tablets every 4-6 hours as needed for symptoms of pain or fever/chills. Do not exceed more than 12 tablets in a 24- hour period. You can take 1 Zofran ODT tablet, every 8 hours as needed for symptoms of residual nausea. Stick to clear liquids for the next 12 to 24 hours. If you tolerate the clear liquids and are making urine at regular intervals, you can begin a diet that is easy to digest starting with things like toast, crackers, and broth based soups. Symptoms should be improving over the course of the next 24 to 36 hours. He can follow-up with regular primary care doctor if symptoms or not improving with this care plan or return to the emergency room for any new concerns that you might have. Discharge Data Discharge Physician: Bahman Barry [facility] General Date/Time Provider Initiated Documentation: 01/08/24 23:38 . [facility] Narrative: The patient is a 39-year-old female, with a past medical history significant for being in an effort, who presents to the emergency department this evening complaining of nausea, vomiting, diarrhea, and abdominal and flank discomfort which has been ongoing throughout the course of the day today. The patient reports that they have significant right flank discomfort and some right-sided abdominal discomfort with the symptoms. The patient tells me that she has been unable to tolerate any liquids or medications at all today. Her last urine was at around 11:30 AM, and she feels like it was normal at that time. The patient does not report any fevers at home but was subjectively having chills. The patient is concerned that she is becoming dehydrated and is concerned because of her single kidney. Related Data Home Medications Medication Instructions Recorded Confirmed dulaglutide 1.5 mg/0.5 mL 4.5 mg subcut QWEEK 12/16/22 10/06/23 subcutaneous pen injector (Trulicity) magnesium 250 mg tablet 250 mg PO DAILY #10 tabs 10/06/23 Previous Rx's Medication Instructions Recorded magnesium 250 mg tablet 250 mg PO DAILY #10 tabs 10/06/23 Allergies Allergy/AdvReac Type Severity Reaction Status Date / Time nitrofurantoin Allergy Unverified 10/06/23 16:52 [From Macrobid] General Stated Complaint: Nausea/Vomit/Diar LAMAR: 3 Exam Narrative Exam Narrative: The patient has relatively normal vital signs other than some mild tachycardia. She is anxious and agitated in the room. Resp Other: There is and normal respiratory effort with normal lung sounds bilaterally. Cardio Other: The patient is mildly tachycardic with no murmurs, rubs, or gallops. GI Other: The patient has normal bowel sounds and has pain to palpation of almost every area touched on the abdomen. The abdomen is soft. Skin Other: Skin is pink warm and dry Neuro Other: There are no focal motor or sensory deficits. The cranial nerves are grossly intact. Psych Other: The patient is anxious and has some mild akathisia Course Vital Signs Vital signs: Vital Signs Temperature 36.6 C 01/08/24 23:36 Pulse 110 H 01/08/24 23:36 Respiratory Rate 18 01/08/24 23:36 Blood Pressure 97/82 L 01/08/24 23:36 Pulse Oximetry 95 01/08/24 23:36 Temperature 36.6 C 01/08/24 23:36 Pulse 110 H 01/08/24 23:36 Respiratory Rate 18 01/08/24 23:36 Respiratory Effort Normal 01/08/24 23:40 Blood Pressure 97/82 L 01/08/24 23:36 Pulse Oximetry 95 01/08/24 23:36 Oxygen Delivery Method Room Air 01/08/24 23:36 Oxygen Flow Rate 0 01/08/24 23:36 Pain Level 7 01/08/24 23:36 Lab/Test Results Lab/Test Results: Laboratory Tests Range/Units 01/08/24 23:44 WBC (4.4-10.8) 10^3/uL 11.40 H RBC (3.93-5.22) 10^6/uL 4.71 Hgb (11.2-15.7) g/dL 14.1 Hct (36.0-46.0) % 40.5 MCV (80-95) fL 86 MCH (27.0-33.0) pg 29.9 MCHC (32.0-36.0) % 34.8 RDW (11.7-14.6) % 12.4 Plt Count (130-400) 10^3/uL 237 MPV (8.0-11.0) fL 9.6 Immature Gran % 0.5 Neutrophils % 92.0 Lymphocytes % 3.5 Monocytes % 3.6 Eosinophils % 0.2 Basophils % 0.2 Nucleated RBC % (0.0-0.3) % 0.0 Absolute Neutrophils (1.2-6.7) 10^3/uL 10.49 H Absolute Lymphocytes (1.2-3.4) 10^3/uL 0.40 L Absolute Monocytes (0.1-0.8) 10^3/uL 0.41 Absolute Eosinophils (0.0-0.7) 10^3/uL 0.02 Absolute Basophils (0.0-0.2) 10^3/uL 0.02 Sodium (136-145) mmol/L 140 Potassium (3.5-5.1) mmol/L 3.1 L Chloride (98-107) mmol/L 102 Carbon Dioxide (21.0-32.0) mmol/L 24.6 Anion Gap (3-11) mmol/L 13.4 H BUN (7-18) mg/dL 19 H Creatinine (0.55-1.02) mg/dL 1.1 H Est GFR (CKD-EPI 2020) (mL/min/1.73m2) 65.96 Glucose (74-106) mg/dL 109 H Calcium (8.5-10.1) mg/dL 8.5 Magnesium (1.8-2.4) mg/dL 1.4 L Total Bilirubin (0.2-1.0) mg/dL 1.0 AST (15-37) U/L 16 ALT (14-59) U/L 23 Alkaline Phosphatase (46-116) U/L 59 Total Protein (6.4-8.2) g/dL 7.5 Albumin (3.4-5.0) g/dL 3.7 Lipase (16-77) U/L 26 Serum HCG, Qual Negative Medical Decision Making The patient was seen and examined. She is anxious and likely has decompensated viral gastroenteritis. The current locally endemic variant has had a lot of functional abdominal pain associated with it, and may represent the [place] virus based on this clinical presentation. The patient is most likely dehydrated secondary to her vomiting and inability to tolerate liquids throughout the day today. She was given IV acetaminophen, IV Reglan, and 2 L of normal saline here in the emergency room. She will have labs sent to evaluate for her kidney function and any right upper quadrant or urinary collecting syste m pathology. Disposition depends on discovery of pathology and response to treatment here in the emergency room. The patient was relatively dehydrated here in the emergency room and was given 3 L total fluid, 2 L of normal saline and 1 L of D5 normal saline. The patient has improved significantly with IV and oral acetaminophen, and IV Reglan. The patient's blood pressure is still a little on the lower side but she improves with ambulation and sitting up. The patient has oral Zofran at home that she can use for any residual nausea symptoms. I have encouraged her to continue to be hydrating at home frequently over the course the next day. Primary care follow-up recommended if symptoms are not improving with this care plan. Quality:SDOH Health Related Social Needs: No Data to Display PFSH All Active Problems (Updated 01/09/24 @ 05:50 by Bahman Barry MD) Gastroenteritis (Acute) Acute dehydration (Acute) COVID-19 (Acute) Left leg pain (Acute) Subclinical hypothyroidism (Acute) Social History Smoking/Tobacco Use Status: Never Smoking risk assessment performed?: Yes Alcohol Intake: current Alcohol Intake frequency: a few times a week Drug use: Never Substance use type: does not use Housing: house Do you feel safe at home: Yes Do you feel safe in your relationship?: Yes
[2024-01-09 00:41] LABS: COVID-19 PCR Negative (Negative); Influenza A PCR Negative (Negative); Influenza B PCR Negative (Negative); RSV PCR Negative (Negative)
[2024-01-09 00:43] LABS: Source Nasopharynx
[2024-01-09 01:34] LABS: Bilirubin Negative (Negative); Blood Negative (Negative); Clarity Clear (Clear); Glucose Negative (Negative); Ketones Negative (Negative); Leukocyte Esterase Negative (Negative); Nitrite Negative (Negative); Specific Gravity >= 1.030 (1.005-1.025); Urobilinogen 0.2 mg/dL (Up to 0.2)
[2024-01-09] MEDS: Ondansetron 4 MG/2 ML VIAL IVP (02:35)
[2024-01-09] MEDS: DEXTROSE 5%-0.9% SALINE 1,000 ML 250 ML IV (02:35)
[2024-01-09] MEDS: Acetaminophen 325 MG TAB 650 MG PO (05:49)
== END 2024-01-09 05:58 | disposition home or self-care (01) ==
PROVIDERS: Emergency Provider Emergency Medicine Emergency Medical Services; PCP Family Medicine
DX: R10.9 Unspecified abdominal pain (principal); E86.0 Dehydration; K52.9 Noninfective gastroenteritis and colitis, unspecified
CPT/HCPCS: 36415; 80053; 82962; 83690; 87637; 96365; 96366; 96375; 99284; 81003; 83735; 84703; 85025; J0131; J2405; J2765; J7042

== ENCOUNTER → 2024-03-04 00:36 | Outpatient (CLI) | payer OTHER, SELFPAY ==
--- NOTE | 2024-03-04 | DI.MAMMO_ITS ---
Exam(s) MAMMO SCREENING EXAM: MAMMO SCREENING CLINICAL HISTORY: Z91.89 Other specified personal risk factors, screening. TECHNIQUE: Mammograms were interpreted according to the usual protocol including computer analysis w [employer] CAD system, tomosynthesis and C-view imaging. COMPARISON: No exams were available for comparison. The patient has outside examinations which are not yet available for comparison. FINDINGS: The breasts are composed of scattered fibroglandular densities, Breast Density category B. No suspicious masses or suspicious microcalcifications are seen. No skin thickening or abnormal axillary lymph nodes are seen. IMPRESSION: BI-RADS Category 1, Negative mammogram Yearly screening mammography is recommended. Breast Density - Category B, scattered fibroglandular densities. A negative radiographic report should not delay biopsy if a dominant or clinically suspicious mass is present. Up to ten percent of cancers are not identified on mammography. A negative report may reinforce clinical impression. Adenosis and dense breasts may obscure an underlying neoplasm. False positive reports average 6 to 10%. Patient will receive a letter notifying them of these results.
--- NOTE | 2024-03-04 | DI.RAD_ITS ---
Exam(s) XR HIP LT COMPLETE AP PELVIS EXAM: XR HIP LT COMPLETE AP PELVIS CLINICAL HISTORY: M25.552 Pain in left hip. TECHNIQUE: 2D digital imaging was performed. Two views. COMPARISON: No exams were available for comparison FINDINGS: BONES: No acute fracture is present. No bony destructive lesion is seen. JOINTS: No dislocation present. The hip joint spaces are maintained. SOFT TISSUE: Normal. IUD noted. IMPRESSION: Unremarkable radiographs of the left hip. Unremarkable radiographs of the pelvis DATA REPOSITORY: RADIATION DOSE DELIVERED:
== END ==
PROVIDERS: PCP Family Medicine; Visit Provider Registered Nurse Critical Care Medicine
DX: M25.552 Pain in left hip (principal)
CPT/HCPCS: 77063; 77067; 73502

== ENCOUNTER 2024-12-15 08:51 | Emergency (ER) | payer OTHER, SELFPAY ==
[2024-12-15] VITALS (36 sets, daily range): BP systolic 87–134; BP diastolic 47–89; PULSE 78–129; RESP 13–44; TEMP 37.1; O2SAT 91–99
--- NOTE | 2024-12-15 09:15 | RT.EKG_ITS ---
APPROVED REPORT Exam: Resting ECG Reason for Exam: chest pain Patient Location: E HR:96 bpm ECG Measurements Heart Rate 96 AXIS AK 133 P 33 QRSd 82 QRS 52 QT 344 T 8 QTc 434 Conclusion Sinus rhythm...normal P axis, V-rate 60- 99 I have reviewed and interpreted ECG and agree with software generated interpretation.
[2024-12-15 09:45] LABS: Abs Immature Grans 0.05 10^3/uL (0.0-0.06); Absolute Basophil Count 0.02 10^3/uL (0.0-0.2); Absolute Eosinophil Count 0.01 10^3/uL (0.0-0.7); Absolute Lymphocyte Count 0.37 10^3/uL (1.2-3.4); Absolute Monocyte Count 0.27 10^3/uL (0.1-0.8); Absolute Neutrophil Count 8.11 10^3/uL (1.2-6.7); Basophils % 0.2 %; Eosinophils % 0.1 %; HCT 42.5 % (36.0-46.0); HGB 14.6 g/dL (11.2-15.7); Immature Grans % 0.6 %; Lymphocytes % 4.2 %; MCH 29.7 pg (27.0-33.0); MCHC 34.4 % (32.0-36.0); MCV 86 fL (80-95); MPV 9.1 fL (8.0-11.0); Monocytes % 3.1 %; Neutrophils % 91.8 %; Platelet Count 222 10^3/uL (130-400); RBC 4.92 10^6/uL (3.93-5.22); RDW 11.9 % (11.7-14.6); WBC 8.83 10^3/uL (4.4-10.8)
[2024-12-15] MEDS: Normal Saline 1,000 ML 1000 ML IV (09:47)
[2024-12-15] MEDS: Prochlorperazine 10 MG/2 ML VIAL 5 MG IVP (09:49)
[2024-12-15] MEDS: MORPHine 4 MG/ML SYR IVP (09:50)
[2024-12-15] MEDS: ACETAMINOPHEN 1,000 MG/100 ML BAG 400 MG IVPB (09:50)
[2024-12-15 10:06] LABS: ALT 23 U/L (14-59); AST 14 U/L (15-37); Alkaline Phosphatase 53 U/L (46-116); Anion Gap 8.1 mmol/L (3-11); BUN 18 mg/dL (7-18); Bilirubin, Total 0.87 mg/dL (0.2-1.0); CO2 27.9 mmol/L (21.0-32.0); CREATININE 1.2 mg/dL (0.55-1.02); Calcium 8.9 mg/dL (8.5-10.1); Chloride 106 mmol/L (98-107); Estimated GFR 59.42 (mL/min/1.73m2); Glucose 104 mg/dL (74-106); Lipase 25 U/L (<78); Magnesium 1.6 mg/dL (1.8-2.4); Potassium 3.4 mmol/L (3.5-5.1); Sodium 142 mmol/L (136-145); Total Protein 7.6 g/dL (6.4-8.2)
--- NOTE | 2024-12-15 10:30 | DI.RAD_ITS ---
Exam(s) XR CHEST 2V PA LATERAL EXAM: XR CHEST 2V PA LATERAL CLINICAL HISTORY: left upper quadrant pain TECHNIQUE: 2D digital imaging was performed of the chest. Two images were obtained. PA and lateral views were obtained. COMPARISON: CR XR CHEST 2V PA LATERAL from 10/06/2023 FINDINGS: MEDIASTINUM: Normal. HEART: Normal. PULMONARY VASCULATURE: Normal. LUNGS: No focal consolidating infiltrates. The lungs are unchanged compared to the prior examination . PLEURAL SPACE: No pleural effusion or pneumothorax. BONE:Within normal limits for the patient's age. OTHER FINDINGS:There are surgical clips in the right upper quadrant of the abdomen. IMPRESSION: No acute pulmonary findings. DATA REPOSITORY: RADIATION DOSE DELIVERED:
[2024-12-15 11:01] LABS: COVID-19 PCR Negative (Negative); Influenza A PCR Negative (Negative); Influenza B PCR Negative (Negative); RSV PCR Negative (Negative)
[2024-12-15 11:02] LABS: Source Nasopharynx
[2024-12-15] MEDS: Lactated Ringers 1,000 ML 1000 ML IV (11:57)
--- NOTE | 2024-12-15 15:35 | ED.GENADUL_ITS ---
Discharge Plan Disposition Patient Disposition: Home Condition: Stable Discharge Details Clinical Impression: Nausea & vomiting, Hypokalemia, Hypomagnesemia Primary Care Provider: Hayley Mckee ED Provider: Ayesha Horton Home Meds and New Rx's Prescriptions: New potassium chloride 20 mEq tablet extended release 20 meq PO DAILY Qty: 4 0RF magnesium 250 mg tablet 250 mg PO DAILY Qty: 6 0RF ondansetron 4 mg tablet,disintegrating 4 mg PO DAILY 3 Days Qty: 3 0RF Continued dextroamphetamine-amphetamine [Adderall XR] 20 mg capsule,extended release 24hr 20 mg PO BID escitalopram oxalate [Lexapro] 20 mg tablet 20 mg PO DAILY topiramate [Topamax] 25 mg tablet 25 mg PO DAILY minocycline 50 mg capsule 50 mg PO DAILY Trulicity 1.5 mg/0.5 mL pen injector 4.5 mg SUBCUT QWEEK Wegovy 0.5 mg/0.5 mL pen injector 0.5 mg SUBCUT DAILY Patient Comments: inject 0.5mg subcutaneously once weekly in abdomen, thigh or upper arm, please call provider at [phone] with an update in 6 weeks magnesium 250 mg tablet 250 mg PO DAILY Qty: 10 0RF Discharge Instructions Instructions: Nausea and vomiting in adults Additional Instructions: Take Zofran as needed for nausea and vomiting, Tylenol as needed for pain Take the magnesium and potassium when you are feeling improved return earlier should you have new or worsening complaints Referrals: Hayley Mckee [Primary Care Provider] - 2 days Discharge Data Discharge Date/Time-TO BE ENTERED AT DEPARTURE: 12/15/24 13:09 [facility] General Date/Time Provider Initiated Documentation: 12/15/24 09:09 . HPI Narrative: The patient is a 39-year-old female who presents with left upper quadrant tenderness, nausea, and vomiting. Her symptoms started last evening with nausea and vomiting, and she subsequently developed left upper quadrant tenderness today. She reports that the pain worsens with movement. She is not aware of any sick contacts. She is not experiencing any fever or chills. She is not experiencing any blood in vomitus or diarrhea. She does not report any failed food consumption. Related Data Home Medications ?Medication ?Instructions ?Recorded ?Confirmed dulaglutide 1.5 mg/0.5 mL 4.5 mg subcut QWEEK 12/16/22 12/15/24 subcutaneous pen injector (Trulicity) magnesium 250 mg tablet 250 mg PO DAILY #10 tabs 10/06/23 12/15/24 dextroamphetamine-amphetamine ER 20 mg PO BID 06/14/24 12/15/24 20 mg 24hr capsule,extend release (Adderall XR) escitalopram oxalate 20 mg tablet 20 mg PO DAILY 06/14/24 12/15/24 (Lexapro) minocycline 50 mg capsule 50 mg PO DAILY 06/14/24 12/15/24 topiramate 25 mg tablet (Topamax) 25 mg PO DAILY 06/14/24 12/15/24 magnesium 250 mg tablet 250 mg PO DAILY #6 tabs 12/15/24 ondansetron 4 mg disintegrating 4 mg PO DAILY 3 days #3 tabs 12/15/24 tablet potassium chloride 20 mEq 20 meq PO DAILY #4 tabs 12/15/24 tablet,extended release semaglutide (weight loss) 0.5 0.5 mg subcut DAILY 12/15/24 12/15/24 mg/0.5 mL subcutaneous pen injector (Wegovy) Previous Rx's ?Medication ?Instructions ?Recorded magnesium 250 mg tablet 250 mg PO DAILY #10 tabs 10/06/23 magnesium 250 mg tablet 250 mg PO DAILY #6 tabs 12/15/24 ondansetron 4 mg disintegrating 4 mg PO DAILY 3 days #3 tabs 12/15/24 tablet potassium chloride 20 mEq 20 meq PO DAILY #4 tabs 12/15/24 tablet,extended release Allergies Allergy/AdvReac Type Severity Reaction Status Date / Time nitrofurantoin (From Allergy Other (See Unverified 12/15/24 09:07 Macrobid) Comment) General Stated Complaint: Abd Prob LAMAR: 3 Exam Narrative Exam Narrative: General Appearance: The patient is in acute discomfort. Vital signs: Within normal limits. HEENT: Moist mucous membranes. Respiratory: The lungs are clear to auscultation. Cardiovascular: The heart has a sinus tachycardia rhythm. Gastrointestinal: There is tenderness in the left upper quadrant of the abdomen. No rebound or guarding to the abdomen. Genitourinary: Lymphatic: Back, Musculoskeletal: No CVA tenderness. Extremities: Skin: No rashes or lesions. Neurological: The patient is alert and oriented. Psychiatric: Other observations: Course Vital Signs Vital signs: Vital Signs Pulse 125 H 12/15/24 09:05 Respiratory Rate 20 12/15/24 09:05 Blood Pressure 134/89 12/15/24 09:05 Pulse Oximetry 98 12/15/24 09:05 Temperature 37.1 C 12/15/24 10:36 Temperature Source Oral 12/15/24 10:36 Pulse 87 12/15/24 13:08 Pulse 91 H 12/15/24 13:01 Respiratory Rate 20 12/15/24 13:05 Blood Pressure 103/70 12/15/24 13:08 Blood Pressure Mean 79 12/15/24 13:08 Blood Pressure Position Sitting 12/15/24 10:36 Pulse Oximetry 96 12/15/24 13:05 Oxygen Delivery Method Room Air 12/15/24 10:36 Oxygen Flow Rate 0 12/15/24 10:36 Pain Level 3 12/15/24 10:36 Lab/Test Results Lab/Test Results: Laboratory Tests Range/Units 12/15/24 12/15/24 09:35 10:17 WBC (4.4-10.8) 10^3/uL 8.83 RBC (3.93-5.22) 10^6/uL 4.92 Hgb (11.2-15.7) g/dL 14.6 Hct (36.0-46.0) % 42.5 MCV (80-95) fL 86 MCH (27.0-33.0) pg 29.7 MCHC (32.0-36.0) % 34.4 RDW (11.7-14.6) % 11.9 Plt Count (130-400) 10^3/uL 222 MPV (8.0-11.0) fL 9.1 Immature Gran % % 0.6 Neutrophils % % 91.8 Lymphocytes % % 4.2 Monocytes % % 3.1 Eosinophils % % 0.1 Basophils % % 0.2 Nucleated RBC % (0.0-0.3) % 0.0 Absolute Neutrophils (1.2-6.7) 10^3/uL 8.11 H Absolute Lymphocytes (1.2-3.4) 10^3/uL 0.37 L Absolute Monocytes (0.1-0.8) 10^3/uL 0.27 Absolute Eosinophils (0.0-0.7) 10^3/uL 0.01 Absolute Basophils (0.0-0.2) 10^3/uL 0.02 Sodium (136-145) mmol/L 142 Potassium (3.5-5.1) mmol/L 3.4 L Chloride (98-107) mmol/L 106 Carbon Dioxide (21.0-32.0) mmol/L 27.9 Anion Gap (3-11) mmol/L 8.1 BUN (7-18) mg/dL 18 Creatinine (0.55-1.02) mg/dL 1.2 H Est GFR (CKD-EPI 2020) (mL/min/1.73m2) 59.42 Glucose (74-106) mg/dL 104 Calcium (8.5-10.1) mg/dL 8.9 Magnesium (1.8-2.4) mg/dL 1.6 L Total Bilirubin (0.2-1.0) mg/dL 0.87 AST (15-37) U/L 14 L ALT (14-59) U/L 23 Alkaline Phosphatase (46-116) U/L 53 Total Protein (6.4-8.2) g/dL 7.6 Albumin (3.4-5.0) g/dL 4.0 Lipase (<78) U/L 25 COVID-19 Source Nasopharynx SARS-CoV-2 (PCR) (Negative) Negative Influenza Type A (PCR) (Negative) Negative Influenza Type B (PCR) (Negative) Negative RSV (PCR) (Negative) Negative Medical Decision Making Laboratory Studies Mild hypokalemia at 3.4, hypomagnesemia at 1.6. Imaging Chest x-ray does not show evidence of acute abnormality. Initial Assessment: 39-year-old female presents with left upper quadrant tenderness, nausea, and vomiting. Symptoms started last evening with nausea and vomiting, followed by left upper quadrant tenderness today. Pain worsens with movement. No fever, chills, blood in vomitus, or diarrhea. No failed food consumption. ED Course: - Diagnostic labs ordered. - Administered morphine, fluids, and antiemetics. - Mild hypokalemia at 3.4, hypomagnesemia at 1.6. - Symptomatically improved, able to tolerate p.o. - Chest x-ray per radiology interpretation: no evidence of acute abnormality. - Discharged home in stable condition with stable vitals. - Return precautions reviewed and patient expressed understanding. Final Assessment: Patient presented with left upper quadrant tenderness, nausea, and vomiting. Diagnostic labs and chest x-ray were performed. Treated with morphine, fluids, and antiemetics. Patient showed symptomatic improvement and was discharged in stable condition. Clinical Impression: - Left upper quadrant tenderness - Mild hypokalemia - Hypomagnesemia Disposition: - Discharge: Patient discharged home in stable condition. MDM Components Evaluation: - Number of Differential Diagnoses or Management Options: Left upper quadrant tenderness, mild hypokalemia, hypomagnesemia. - Amount and Complexity of Data Reviewed: Diagnostic labs, chest x-ray. - Risk of Complication and Morbidity or Mortality: Low risk based on current condition and treatment plan. Quality:SDOH Health Related Social Needs: No Data to Display PFSH All Active Problems (Updated 12/15/24 @ 12:29 by JAVED Lambert) Hypomagnesemia (Acute) Hypokalemia (Acute) Nausea & vomiting (Acute) Anxiety (Chronic) ADHD (Acute) Diabetes (Chronic) Type 2 Migraine (Chronic) Medical History Subclinical hypothyroidism Concussion (12/14/13) Social History (Updated 06/14/24 @ 09:41 by Dayan Motta NP) Smoking/Tobacco Use Status: Never Second Hand Exposure: No Smoking risk assessment performed?: Yes Alcohol Intake: current Alcohol Intake frequency: a few times a week Drug use: Never Substance use type: does not use Housing: house 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 Date GA/Weeks # Preg Succ Route Wgt Sex Labor Lgth Anesth esia Location Prov Complic 12/25/07 40 No Yes vaginal Female 08/25/09 40 No Yes vaginal Female 08/11/15 40 No Yes vaginal Female
== END 2024-12-15 13:09 | disposition home or self-care (01) ==
PROVIDERS: Emergency Provider Physician Assistant; PCP Family Medicine
DX: R11.2 Nausea with vomiting, unspecified (principal); R10.10 Upper abdominal pain, unspecified; E87.6 Hypokalemia; E83.42 Hypomagnesemia; E11.9 Type 2 diabetes mellitus without complications; Z79.85 Long-term (current) use of injectable non-insulin antidiabetic drugs
CPT/HCPCS: 80053; 83690; 87637; 93005; 96361; 96365; 96375; 99285; 71046; 83735; 85025; 93010; J0131; J0780; J2270

== ENCOUNTER 2025-09-01 07:53 | Outpatient (CLI) | payer OTHER, SELFPAY ==
[2025-09-01 08:33] LABS: HCT 40.2 % (36.0-46.0); HGB 13.9 g/dL (11.2-15.7); MCH 29.8 pg (27.0-33.0); MCHC 34.6 % (32.0-36.0); MCV 86 fL (80-95); MPV 9.5 fL (8.0-11.0); Platelet Count 248 10^3/uL (130-400); RBC 4.66 10^6/uL (3.93-5.22); RDW 12.2 % (11.7-14.6); RDW-SD 38.5 fL; WBC 7.66 10^3/uL (4.4-10.8)
[2025-09-01 09:21] LABS: ALT 17 U/L (14-59); AST 10 U/L (15-37); Albumin 4.0 g/dL (3.4-5.0); Alkaline Phosphatase 49 U/L (46-116); Anion Gap 10.7 mmol/L (3-11); BUN 15 mg/dL (7-18); Bilirubin, Total 0.8 mg/dL (0.2-1.0); CO2 27.3 mmol/L (21.0-32.0); Calcium 9.3 mg/dL (8.5-10.1); Chloride 103 mmol/L (98-107); Cholesterol 181 mg/dL (<200); Folate 11.1 ng/mL (8.6-20.0); Glucose 98 mg/dL (74-106); HDL Cholesterol 51 mg/dL (>or=50); Potassium 3.7 mmol/L (3.5-5.1); Sodium 141 mmol/L (136-145); TSH (W/Ref FT4) 3.02 uIU/mL (0.36-3.74); Total Protein 7.5 g/dL (6.4-8.2); Vitamin B12 673 pg/mL (193-986); Vitamin D 25 Total 13 ng/mL (30-100)
== END 2025-09-01 07:54 | disposition home or self-care (01) ==
LOC: LBO 07:54
PROVIDERS: PCP Family Medicine; Visit Provider Nurse Practitioner Family
DX: L65.9 Nonscarring hair loss, unspecified (principal); K76.0 Fatty (change of) liver, not elsewhere classified; E66.811 Obesity, class 1; R53.83 Other fatigue
CPT/HCPCS: 36415; 80053; 80061; 82306; 85027; 82607; 82746; 84443

== ENCOUNTER 2025-10-04 02:49 | Emergency (ER) | payer OTHER, SELFPAY ==
[2025-10-04] VITALS (24 sets, daily range): BP systolic 91–115; BP diastolic 51–83; PULSE 96–117; RESP 16–18; TEMP 37.3; O2SAT 90–98
--- NOTE | 2025-10-04 02:53 | W.ED.GENAD ---
Discharge Plan Disposition Patient Disposition: Home Condition: Stable Discharge Details Clinical Impression: Viral illness Primary Care Provider: Hayley Mckee ED Provider: Chris Noriega Meds and New Rx's Prescriptions: New benzonatate 100 mg capsule 100 mg PO TID PRN (Reason: cough) Qty: 15 0RF ondansetron 4 mg tablet,disintegrating 4 mg PO Q8H PRN (Reason: nausea and vomiting) Qty: 15 0RF Continued dextroamphetamine-amphetamine [Adderall XR] 20 mg capsule,extended release 24hr 20 mg PO BID escitalopram oxalate [Lexapro] 20 mg tablet 20 mg PO DAILY topiramate [Topamax] 25 mg tablet 25 mg PO DAILY minocycline 50 mg capsule 50 mg PO DAILY Trulicity 1.5 mg/0.5 mL pen injector 4.5 mg SUBCUT QWEEK Wegovy 0.5 mg/0.5 mL pen injector 0.5 mg SUBCUT DAILY Patient Comments: inject 0.5mg subcutaneously once weekly in abdomen, thigh or upper arm, please call provider at [phone] with an update in 6 weeks potassium chloride 20 mEq tablet extended release 20 meq PO DAILY Qty: 4 0RF magnesium 250 mg tablet 250 mg PO DAILY Qty: 10 0RF Discharge Instructions Additional Instructions: You were seen in the ED for cough, fever, vomiting and right sided abdominal pain. Your workup overall is reassuring with unremarkable labs, no evidence of urine infection, negative chest x-ray and abdominal CT scan. Symptoms likely related to viral illness. Rest and hydrate, continue acetaminophen and occasional ibuprofen as needed. Prescription for ondansetron and benzonatate have been sent to pharmacy. Follow-up with primary care late this week or early next week if not improving. Return to ED for any difficulty breathing, chest pain, new or worsening abdominal pain, persistent vomiting, other concerns. Stand Alone Forms: Portal Information Referrals: Hayley Mckee [Primary Care Provider, Medicine] [facility] General Mode of arrival: ambulatory. Date/Time Provider Initiated Documentation: 10/04/25 02:53. Limitations to Documentation: no limitations. Information obtained by: patient and RN notes reviewed. HPI Narrative: Patient presents to ED with complaint of cough/congestion, nausea/vomiting, right-sided flank and lower quadrant pain. She has also been having fevers. Reports developing URI just about 1 week ago. Initially was sinus congestion and nasal congestion. Developed sore throat and cough. Continues to have cough and chest congestion. Began having fevers over the weekend. Unable to eat or drink over the last few days with emesis and dry heaves. Now having intermittent sharp pain in the right flank and right lower quadrant. She is having some mild burning with urination. Related Data Home Medications ?Medication ?Instructions ?Recorded ?Confirmed dulaglutide 1.5 mg/0.5 mL 4.5 mg subcut QWEEK 12/16/22 10/04/25 subcutaneous pen injector (Trulicity) magnesium 250 mg tablet 250 mg PO DAILY #10 tabs 10/06/23 10/04/25 dextroamphetamine-amphetamine ER 20 mg PO BID 06/14/24 10/04/25 20 mg 24hr capsule,extend release (Adderall XR) escitalopram oxalate 20 mg tablet 20 mg PO DAILY 06/14/24 10/04/25 (Lexapro) minocycline 50 mg capsule 50 mg PO DAILY 06/14/24 10/04/25 topiramate 25 mg tablet (Topamax) 25 mg PO DAILY 06/14/24 10/04/25 potassium chloride 20 mEq 20 meq PO DAILY #4 tabs 12/15/24 10/04/25 tablet,extended release semaglutide (weight loss) 0.5 0.5 mg subcut DAILY 12/15/24 10/04/25 mg/0.5 mL subcutaneous pen injector (Weneryvy) benzonatate 100 mg capsule 100 mg PO TID PRN cough #15 caps 10/04/25 ondansetron 4 mg disintegrating 4 mg PO Q8H PRN nausea and 10/04/25 tablet vomiting #15 tabs Previous Rx's ?Medication ?Instructions ?Recorded magnesium 250 mg tablet 250 mg PO DAILY #10 tabs 10/06/23 potassium chloride 20 mEq 20 meq PO DAILY #4 tabs 12/15/24 tablet,extended release benzonatate 100 mg capsule 100 mg PO TID PRN cough #15 caps 10/04/25 ondansetron 4 mg disintegrating 4 mg PO Q8H PRN nausea and 10/04/25 tablet vomiting #15 tabs Allergies Allergy/AdvReac Type Severity Reaction Status Date / Time nitrofurantoin (From Allergy Other (See Unverified 10/04/25 03:04 Macrobid) Comment) General LAMAR: 3 Exam Narrative Exam Narrative: Const: WDWN female in NAD. VS per triage. HEENT: NC/AT. Normal facial exam. Neck: Supple. Trachea midline. Lungs: Normal respiratory effort. Lungs are clear. Cor: RRR without murmur. Good radial pulses. GI: Soft/ND/NT. Back: No CVAT. Neuro: A+O x 3. Normal speech, mentation, gait. Cranial nerves II - XII grossly intact. No gross motor or sensory deficit. Ext: No C/C/E. Medical Decision Making Patient presenting to the ED with continued cough and chest congestion after developing URI 1 week ago. She was also having fevers and is now having right sided flank and abdominal pain with associated vomiting. She has had a cholecystectomy. No other abdominal surgeries. Has congenital absence of the left kidney. Has shortness of breath while coughing. Lungs sound clear. Abdomen is benign. Oxygen saturations were normal. Will place IV and obtain labs including urinalysis. Fluids and antiemetic ordered. Will obtain chest x-ray to evaluate for potential pneumonia and CT scan for possible renal colic, less likely appendicitis given no abdominal tenderness. 05:45 - Patient's labs overall reassuring. U/A is negative. Urine HCG also negative. WBC a little low at 3.73, Hgb and platelets normal. Kidney function is normal, lytes good except potassium at 3.4. LFTs and lipase normal. Chest x-ray per my read negative. CT A/P without acute process, no change in right kidney, no appendicitis. Bladder wall a little thickened but again U/A negative so not related to cystitis. Patient's nausea has resolved. Did develop headache and given ketorolac. Suspect this is all viral in nature. Continue supportive care. Ondansetron for nausea vomiting and benzonatate for cough prescribed. Rest, hydrate and continue use of acetaminophen with occasional ibuprofen. Follow-up with primary care later this week if no improvement. Return precautions provided. Imaging Data Radiologic Study: Attestation: I personally reviewed and interpreted this imaging study as follows: Imaging: X-Ray My impression: see [facility] Lab Data Lab results reviewed: Yes I reviewed the patient's lab results. 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 Date GA/Weeks # Preg Succ Route Wgt Sex Labor Lgth Anesthesia Location Prov Complic 12/25/07 40 No Yes vaginal Female 08/25/09 40 No Yes vaginal Female 08/11/15 40 No Yes vaginal Female
--- NOTE | 2025-10-04 03:00 | DI.CT_ITS ---
Exam(s) CT ABDOMEN PELVIS W EXAM: CT ABDOMEN PELVIS W CLINICAL HISTORY: RLQ/flank pain; vomiting. TECHNIQUE: Imaging Protocol: Axial computed tomography images with coronal and sagittal reformatted images were created and reviewed CONTRAST MATERIAL: Intravenous: Omnipaque 350 Contrast volume:75 ml Oral: no COMPARISON: CT CT ABDOMEN PELVIS W from 10/06/2023 FINDINGS: ABDOMEN and PELVIS: Lung Bases: No acute findings. Liver: Normal density. No suspicious mass. Gallbladder and biliary tract: Cholecystectomy. No biliary dilation. Pancreas: Normal density. No abnormal calcifications or inflammatory process. No evidence of mass. Spleen: Normal. Kidneys: In the left kidney is congenitally absent. Stable appearance of hypertrophy of the right kidney. The renal pelvis and ureter are mildly prominent. This may be secondary to an over distended bladder. Adrenal glands: No masses seen. Vasculature: Abdominal aorta non-dilated. Soft tissues: Unremarkable. Bladder: Bladder is distended ulna almost to the level of the umbilicus. There is mild diffuse wall thickening. No focal mass. No abnormal stranding in the surrounding fat. No calculi.No focal mass. Bowel: No obstruction. No bowel wall thickening. Appendix normal. Peritoneal cavity: No ascites. No focal collection. No mesenteric inflammatory response. No free air. Bones: Unremarkable for age. Reproductive organs: Unremarkable. Lymph nodes: No pathologically enlarged lymph nodes. IMPRESSION:: Over distended urinary bladder with mild wall thickening. Findings could represent cystitis. Clinical correlation recommended. Single right kidney with mildly dilated renal pelvis and ureter which may be secondary to an over distended bladder. No calculi. The preliminary [facility] report was reviewed. RADIATION DOSE DELIVERED: 512.39mGy.cm Total DLP DATA REPOSITORY: All CT scans at this facility are submitted to the National Radiology Data Registry (NRDR) Dose Index Registry (DIR) with the [employer] ([employer]). RADIATION OPTIMIZATION: All CT scans at this facility use at least one of these dose optimization techniques: automated exposure control; mA and/or kV adjustment per patient size (includes targeted exams where dose is matched to clinical indication); or iterative reconstruction.
--- NOTE | 2025-10-04 03:00 | DI.RAD_ITS ---
Exam(s) XR CHEST 2V PA LATERAL EXAM: XR CHEST 2V PA LATERAL CLINICAL HISTORY: cough, fever TECHNIQUE: 2D digital imaging was performed. Two views. COMPARISON: No exams were available for comparison FINDINGS: HEART: Normal size. Aorta: Not dilated. PULMONARY VASCULATURE: Normal. MEDIASTINUM: Unremarkable. LUNGS: Clear. PLEURAL SPACE: No pleural effusion or pneumothorax. BONE:Unremarkable for age. SOFT TISSUES: Unremarkable. IMPRESSION: No acute abnormality. The preliminary [facility] report was reviewed. DATA REPOSITORY: RADIATION DOSE DELIVERED:
[2025-10-04 03:05] LABS: Glucose Negative (Negative)
[2025-10-04] MEDS: Normal Saline 1,000 ML 1000 ML IV (03:25)
[2025-10-04] MEDS: Ondansetron 4 MG/2 ML VIAL IVP (03:26)
[2025-10-04 03:28] LABS: Abs Immature Grans 0.01 10^3/uL (0.0-0.06); HCT 36.5 % (36.0-46.0); HGB 12.4 g/dL (11.2-15.7); Immature Grans % 0.3 %; MCH 28.9 pg (27.0-33.0); MCHC 34.0 % (32.0-36.0); MCV 85 fL (80-95); MPV 9.3 fL (8.0-11.0); Platelet Count 187 10^3/uL (130-400); RBC 4.29 10^6/uL (3.93-5.22); RDW 12.1 % (11.7-14.6); RDW-SD 36.8 fL; WBC 3.73 10^3/uL (4.4-10.8)
[2025-10-04 03:47] LABS: Lipase 33 U/L (<53)
[2025-10-04 03:48] LABS: Magnesium 1.7 mg/dL (1.6-2.6)
[2025-10-04 03:49] LABS: ALT 41 U/L (10-49); AST 24 U/L (<34); Albumin 4.4 g/dL (3.2-5.0); Alkaline Phosphatase 52 U/L (46-116); Anion Gap 9.9 mmol/L (3-11); BUN 12 mg/dL (9-23); Bilirubin, Total 0.60 mg/dL (0.2-1.2); CO2 26.1 mmol/L (20.0-31.0); Calcium 8.4 mg/dL (8.3-10.6); Chloride 104 mmol/L (98-107); Glucose 103 mg/dL (74-106); Potassium 3.4 mmol/L (3.5-5.1); Sodium 140 mmol/L (136-145); Total Protein 7.2 g/dL (5.7-8.2)
[2025-10-04] MEDS: Omnipaque 350 MG/ML 100 ML BTL IJ (03:51)
[2025-10-04] MEDS: Normal Saline - Diluent 50 ML VIAL IJ (03:52)
[2025-10-04] MEDS: Normal Saline Flush 10 ML SYR IVP (03:52)
--- NOTE | 2025-10-04 05:25 | DI.[facility]_ITS ---
PROCEDURE INFORMATION: Exam: CT Abdomen And Pelvis With Contrast Exam date and time: 10/04/2025 3:51 AM Age: 40 years old Clinical indication: Fever and vomiting; Abdominal pain; Other: Rlq, flank pain; Prior surgery; Surgery date: 6+ months; Surgery type: Cholecystectomy; Rlq/flank pain, fever, vomiting, congenital absence of kidney TECHNIQUE: Imaging protocol: Computed tomography of the abdomen and pelvis with contrast. Radiation optimization: All CT scans at this facility use at least one of these dose optimization techniques: automated exposure control; mA and/or kV adjustment per patient size (includes targeted exams where dose is matched to clinical indication); or iterative reconstruction. Contrast material: OMNIPAQUE 350; Contrast volume: 75 ml; Contrast route: INTRAVENOUS (IV); COMPARISON: CT ABDOMEN PELVIS W 10/06/2023 6:08 PM FINDINGS: Lungs: Mild bibasilar atelectasis Liver: Unremarkable. No mass. Gallbladder and biliary ducts: Cholecystectomy Pancreas: Unremarkable. No ductal dilation. Spleen: Unremarkable. No splenomegaly. Adrenal glands: Normal. No mass. Kidneys and ureters: by history congenital absence of the left kidney. Hypertrophy of the right kidney, unchanged. Prominent right UPJ and right ureter. No evidence ureteral stones distended urinary bladder. The wall of the urinary bladder is mildly circumferentially thickened, possible cystitis Stomach and bowel: Unremarkable. No obstruction. No mucosal thickening. Appendix: Normal appendix Intraperitoneal space: Unremarkable. No free air. No significant fluid collection. Vasculature: Unremarkable. No abdominal aortic aneurysm. Lymph nodes: Unremarkable. No enlarged lymph nodes. Urinary bladder: See Kidneys and ureters finding. Reproductive: Unremarkable as visualized. Bones/joints: Unremarkable. No acute fracture. Soft tissues: Unremarkable. IMPRESSION: 1. Congenital absence of the left kidney 2. Possible cystitis 3. Bibasilar atelectasis 4. Normal appendix Dictated and Authenticated by: Jenny Bacon MD. Orderin Hari Perez MD
--- NOTE | 2025-10-04 05:26 | DI.[facility]_ITS ---
PROCEDURE INFORMATION: Exam: XR Chest Exam date and time: 10/04/2025 4:10 AM Age: 40 years old Clinical indication: Cough and fever; Cough, fever TECHNIQUE: Imaging protocol: Radiologic exam of the chest. Views: 2 views. COMPARISON: CR XR CHEST 2V PA LATERAL 12/15/2024 11:41 AM FINDINGS: Lungs: Unremarkable. No consolidation. Pleural spaces: Unremarkable. No pleural effusion. No pneumothorax. Heart/Mediastinum: Unremarkable. No cardiomegaly. Bones/joints: Unremarkable. IMPRESSION: No acute findings. Dictated and Authenticated by: Jenny Bacon MD. Orderin Hari Perez MD
[2025-10-04] MEDS: Ketorolac 15 MG/ML VIAL IVP (05:27)
[2025-10-04] MEDS: Benzonatate 100 MG CAP PO (06:03)
[2025-10-04] MEDS: Ondansetron O.D.T. 4 MG TABEF, 3 TABS/BTL PO (06:03)
== END 2025-10-04 06:19 | disposition home or self-care (01) ==
PROVIDERS: Emergency Provider Emergency Medicine; PCP Family Medicine
DX: R10.31 Right lower quadrant pain (principal); R10.A1 Flank pain, right side; B34.9 Viral infection, unspecified
CPT/HCPCS: 36415; 80053; 81025; 83690; 96361; 96374; 96375; 99285; 71046; 74177; 81003; 83735; 85025; 99284; J1885; J2405; J3490